=== PATIENT | male | born 1945 | race American Indian/Alaskan Native ===

== ENCOUNTER 2016-10-12 09:20 | Inpatient (IN) | payer MEDICARE, MEDICAID, OTHER ==
[2016-10-12] MEDS ORDERED: methylPREDNISolone Sodium Succinate 125 MG/2 ML SDV IVPUSH ONE (09:37)
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
--- NOTE | 2016-10-12 10:34 | CR ---
EXAMINATION: Portable chest radiograph. HISTORY: Shortness of breath. FINDINGS: The trachea is midline. The cardiomediastinal silhouette is within normal limits. No pulmonary infil trates, effusions or pneumothorax. Calcified granulomas are noted. There is moderate hyperinflation and biapical scarring. Osseous structures appear unremarkable. IMPRESSION: No acute cardiopulmonary process.
[2016-10-12 11:09] LABS: CHLORIDE,CL 106 mmol/L (98-110); SODIUM,NA 138 mmol/L (136-146)
[2016-10-12] MEDS ORDERED: Albuterol 0.083% 2.5 MG/3 ML Neb Soln NEB PRN (12:27)
[2016-10-12] MEDS ORDERED: Sodium Chloride 0.9% 2.5 ML Syringe FLUSH PRN (12:27)
[2016-10-12] MEDS ORDERED: Ondansetron 4 MG/2 ML SDV IVPUSH PRN (12:27)
[2016-10-12] MEDS ORDERED: Acetaminophen 325 MG Tab PO PRN (12:27)
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
[2016-10-12] MEDS: Loratadine 10 MG Tab PO SCH (13:22)
[2016-10-12] MEDS: Nicotine 21 MG/24 Hr Patch TRDERM SCH (13:23)
[2016-10-12] MEDS: Albuterol/Ipratropium 3.0-0.5 MG/3 ML Neb Soln NEB SCH ×2 (13:29→18:04)
[2016-10-12] MEDS: Fluticasone/Salmeterol 250-50 MCG Inhalation Powder 14/Diskus INH SCH ×2 (13:29→20:44)
[2016-10-12] MEDS: Acetaminophen/HYDROcodone 325-10 MG Tab PO PRN (18:20)
[2016-10-12] MEDS: methylPREDNISolone Sodium Succinate 125 MG/2 ML SDV IVPUSH SCH (20:34)
[2016-10-12] MEDS: Omeprazole 20 MG Cap.CR PO SCH (22:30)
[2016-10-12] MEDS: atorvaSTATin 20 MG Tab PO SCH (22:30)
[2016-10-12] MEDS: Acyclovir 200 MG Cap PO PRN (22:33)
[2016-10-13] MEDS: Albuterol/Ipratropium 3.0-0.5 MG/3 ML Neb Soln NEB SCH ×2 (00:27→05:52)
[2016-10-13] MEDS: Acetaminophen/HYDROcodone 325-10 MG Tab PO PRN ×2 (00:28→09:31)
[2016-10-13 06:02] LABS: CHLORIDE,CL 101 mmol/L (98-110); SODIUM,NA 133 mmol/L (136-146)
[2016-10-13] MEDS: Omeprazole 20 MG Cap.CR PO SCH (06:37)
[2016-10-13] MEDS ORDERED: Piperacillin/Tazobactam 3.375 GM in Sodium Chloride 0.9% 50 ML IV SCH (07:00)
[2016-10-13] MEDS ORDERED: Ondansetron 8 MG Tab.DIS PO PRN (07:15)
[2016-10-13] MEDS: methylPREDNISolone Sodium Succinate 125 MG/2 ML SDV IVPUSH SCH (08:04)
[2016-10-13] MEDS ORDERED: Levofloxacin/Dextrose 5%-Water 750 MG in Premix Bag 1 BAG IV SCH (09:00)
[2016-10-13] MEDS ORDERED: Tamsulosin 0.4 MG Cap.ER PO SCH (09:00)
[2016-10-13] MEDS ORDERED: Folic Acid 1 MG Tab PO SCH (09:00)
[2016-10-13] MEDS: Loratadine 10 MG Tab PO SCH (09:11)
[2016-10-13] MEDS: atorvaSTATin 20 MG Tab PO SCH (09:13)
[2016-10-13] MEDS: Nicotine 21 MG/24 Hr Patch TRDERM SCH (09:15)
[2016-10-13] MEDS: Acyclovir 200 MG Cap PO PRN (09:35)
[2016-10-13] MEDS: Fluticasone/Salmeterol 250-50 MCG Inhalation Powder 14/Diskus INH SCH (09:38)
[2016-10-13 11:23] VITALS: BP 114/53
--- NOTE | 2016-10-13 11:32 | PCM.DCSUM1 ---
Discharge Summary - Hospital Course Brief History: This 71 year old male with pmh of myelodysplastic syndrome, dyslipidemia, COPD, and 3 ppd smoker presented to the ED today with complaints of dyspnea. He was seen with his PCP, given a neb treatment with very little improvement. He was noted to be satting 88% on RA. Is not oxygen dependent at home, uses only a rescue inhaler at home. He reports he started feeling short of breath 3 days ago. He was outside helping neighbors with grain and was exposed to a lot of grain dust. He denies chest pain, but is having SOB with productive cough. He at baseline has a productive cough, but the secretions have increased slightly. He continues to smoke 3 ppd cigarettes, he is motivated to quit and plans on doing so soon. He denies any recent URI, fever, chills, neck pain, abdominal pain, black or bloody BMs and no urinary symptoms. Continues to see Dr Patience Garibay in Oncology, receives Neupogen and Aranesp injections for myelodysplastic syndrome. In the ED WBC 7,610, hgb 11.7 (at baseline), platelets 123, BMP WNL. Influenza swab negative. Slight hypoxia noted on RA 88-89%, otherwise VSS, CXR negative for infiltrates, but moderate hyperinflation and biapical scarring noted. He will be admitted for COPD exacerbation. Dr. Enriquez PCP. - Discharge Data Discharge Date: 10/13/16 Discharge Disposition: Home, Self-Care 01 Condition: Good - Discharge Diagnosis/Problem(s) (1) Hypoxemia SNOMED Code(s): 821255495 ICD Code: R09.02 - HYPOXEMIA Status: Acute Current Visit: Yes (2) COPD (chronic obstructive pulmonary disease) SNOMED Code(s): 17024862 ICD Code: J44.9 - CHRONIC OBSTRUCTIVE PULMONARY DISEASE, UNSPECIFIED Status : Acute Current Visit: Yes Qualifiers: COPD type: COPD with acute exacerbation Qualified Code(s): J44.1 - Chronic obstructive pulmonary disease with (acute) exacerbation (3) Dyslipidemia SNOMED Code(s): 854173271 ICD Code: E78.5 - HYPERLIPIDEMIA, UNSPECIFIED Status: Chronic Current Visit: Yes (4) Tobacco abuse SNOMED Code(s): 571945158, 242415129 ICD Code: Z72.0 - TOBACCO USE Status: Chronic Current Visit: Yes (5) 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 SNOMED Code(s): 320745463 ICD Code: D75.89 - OTHER SPECIFIED DISEASES OF BLOOD AND BLOOD-FORMING ORGANS Status: Chronic Current Visit: No - Patient Summary/Data Operative Procedure(s) Performed: Colonoscopy with snare rectal polypectomy - Patient Instructions Diet: Regular Diet as Tolerated Activity: As Tolerated Driving: May Drive Today Showering/Bathing: May Shower Notify Provider of: Fever, Increased Pain, Swelling and Redness, Drainage, Nausea and/or Vomiting Other/Special Instructions: Hold Neupogen injection on TuesdayOctober 15. Follow in Oncology on TuesdayOctober 18 with lab work prior to Aranesp injection. - Discharge Plan Prescriptions/Med Rec: predniSONE 40 mg PO WITHBREAKFAST #8 tablet Home Medications: Home Meds Folic Acid 1 mg PO DAILY 04/04/14 [History] atorvaSTATin Calcium [Atorvastatin Calcium] 20 mg PO DAILY 04/04/14 [History] Acyclovir 400 mg PO BID PRN 10/12/16 [History] Albuterol [Proventil HFA] 2 puff INH Q4H PRN 10/12/16 [History] Albuterol/Ipratropium [DuoNeb 3.0-0.5 MG/3 ML] 3 ml IH QID PRN 10/12/16 [History ] Darbepoetin [place] in Polysorbat [Aranesp] 309 mcg ID WEEKLY 10/12/16 [History] Esomeprazole Magnesium [Nexium 24Hr] 44.6 mg PO DAILY 10/12/16 [History] Hydrocodone/Acetaminophen [[place] 10-325 Tablet] 10 - 325 mg PO Q6H PRN 10/12/16 [History] Ondansetron HCl [Zofran] 8 mg PO Q8HR PRN 10/12/16 [History] Tamsulosin [Flomax] 0.4 mg PO DAILY 10/12/16 [History] Tiotropium Br/Olodaterol HCl [Stiolto Respimat Inhal [place]] 2 inh IH DAILY 10/12 [History] Filgrastim [Neupogen] 480 mcg SUBCUT WEEKLY #0 10/13/16 [Rx] Loratadine [Claritin] 10 mg PO DAILY tablet 10/13/16 [Rx] Nicotine [Habitrol] 21 mg TRDERM DAILY patch 10/13/16 [Rx] predniSONE 40 mg PO WITHBREAKFAST #8 tablet 10/13/16 [Rx] Patient Handouts: Chronic Obstructive Pulmonary Disease, [id number], Prednisone tablets Referrals: [facility] [Outside] Hudson Enriquez MD [Primary Care Provider] - 10/20/16 1:00 pm - Discharge Summary/Plan Comment DC Time >30 min.: No Discharge Summary/Plan Comment: Discharge diagnosis: COPD with mild exacerbation Myelodysplastic syndrome Tobacco use Dvaid was admitted and treated with SOlu-medrol Q12 hrs, oxygen and Duonebs. He improvement greatly overnight and is requesting discharge today. On room air sating 94%. Leukocytosis of 50,000 noted this am. This is likey due to recently receiving his Neupogen injection on the as well as Solumedrol. I attempted to call his Oncologist Dr. Patience Garibay, who was out of the office. I was able to speak with her [employer] SERV[employer]ENT, Isabella Li NP who recommended holding Tuesday's injection of Neupogen and to follow a CBC next week prior to Aranesp injection as well. She agrees this is likely a reaction of Neupogen and the Solumedrol. He is afebrile, VSS and I do not feel he has an infection. I will discharge him home today with Prednisone for 4 more day, 5 day course total and to continue taking his Stiolto and albuterol rescue inhaler PRN. He is to follow up with PCP in 1 week and Oncology on Tuesday. To return to ED or clinic in concerns do arise. - General Info Date of Service: 10/13/16 Admission Dx/Problem (Free Text: COPD exacerbation Subjective Update: Doing well this am. No chest pain or SOB. Feeling much better and requesting discharge. Functional Status: Reports: pain controlled, tolerating diet, ambulating, urinating - Review of Systems General: Reports: No Symptoms. Denies: Fever HEENT: Denies: no symptoms, sinus congestion, sore throat Pulmonary: Reports: no symptoms. Denies: shortness of breath, cough, sputum Cardiovascular: Reports: No Symptoms. Denies: Chest Pain, Edema Gastrointestinal: Reports: No symptoms. Denies: Abdominal pain, Nausea, Vomiting Genitourinary: Reports: no symptoms Musculoskeletal: Reports: no symptoms Skin: Reports: no symptoms Neurological: Reports: No Symptoms Psychiatric: Reports: no symptoms - Patient Data Vitals - Most Recent: Last Vital Signs Temp 98.2 F 10/13/16 11:21 Pulse 84 10/13/16 11:21 Resp 18 10/13/16 11:21 BP 114/53 L 10/13/16 11:21 Pulse Ox 92 L 10/13/16 11:21 Weight - Most Recent: 63.7 kg I&O - Last 24 hours: Intake & Output 10/12/16 10/13/16 10/13/16 22:59 06:59 14:59 Intake Total 480 720 Output Total 300 520 Balance 180 200 Lab Results - Last 24 hrs: Laboratory Results - last 24 hr 10/13/16 10/13/16 10/13/16 Range/Units 04:50 04:50 06:59 WBC 50.87 H (4.0-11.0) K/uL RBC 2.88 L (4.50-5.90) M/uL Hgb 10.5 L (13.0-17.0) g/dL Hct 32.2 L (38.0-50.0) % MCV 111.8 H (80.0-98.0) fL MCH 36.5 H (27.0-32.0) pg MCHC 32.6 (31.0-37.0) g/dL RDW Std Deviation 62.4 H (28.0-62.0) fl RDW Coeff of Pedro 15 (11.0-15.0) % Plt Count 129 L (150-400) K/uL MPV 11.70 (7.40-12.00) fL Add Manual Diff YES Neutrophils % (Manual) 58 (48.0-80.0) % Band Neutrophils % 36 % Lymphocytes % (Manual) 4 L (16.0-40.0) % Monocytes % (Manual) 2 (0.0-15.0) % Nucleated RBC % 0.0 /100WBC Absolute Seg Neuts 29.5 Band Neutrophils # 18.3 Lymphocytes # (Manual) 2.0 Monocytes # (Manual) 1.0 Nucleated RBCs # 0 K/uL Lactate 1.4 (0.20-2.00) mmol/L Sodium 133 L (136-146) mmol/L Potassium 4.1 (3.5-5.1) mmol/L Chloride 101 (98-110) mmol/L Carbon Dioxide 21 (21-31) mmol/L BUN 16 (6.0-23.0) mg/dL Creatinine 0.9 (0.6-1.5) mg/dL Est Cr Clr Drug Dosing 67.83 mL/min Estimated GFR (MDRD) > 60.0 ml/min Glucose 151 H (60-110) mg/dL Calcium 8.4 L (8.8-10.8) mg/dL FRIEDA Results - Last 24 hrs: Microbiology 10/13/16 06:30 Anaerobic Blood Culture - Final Blood - Venous Med Orders - Current: Current Medications Acetaminophen (Tylenol) 650 mg PO Q4H PRN PRN Reason: Pain (Mild 1-3)/fever Hydrocodone Bitart/Acetaminophen ([place] 325-10 Mg) 1 tab PO Q6H PRN PRN Reason: Pain Last Admin: 10/13/16 09:31 Dose: 1 tab Acyclovir (Zovirax) 400 mg PO BID [facility] Albuterol (Proventil Neb Soln) 2.5 mg NEB Q2HR PRN PRN Reason: Shortness Of Breath/wheezing Last Admin: 10/12/16 13:27 Dose: 2.5 mg Albuterol/Ipratropium (Duoneb 3.0-0.5 Mg/3 Ml) 3 ml NEB Q6HRRT [facility] Last Admin: 10/13/16 05:52 Dose: 3 ml Atorvastatin Calcium (Lipitor) 20 mg PO DAILY [facility] Last Admin: 10/13/16 09:13 Dose: 20 mg Folic Acid (Folic Acid) 1 mg PO DAILY [facility] Last Admin: 10/13/16 09:12 Dose: 1 mg Piperacillin Sod/Tazobactam (Sod 3.375 gm/ Sodium Chloride) 50 mls @ 100 mls/ hr IV Q6H [facility] Last Admin: 10/13/16 06:37 Dose: 100 mls/hr Levofloxacin/Dextrose 750 mg/ (Premix) 150 mls @ 100 mls/hr IV Q24H [facility] Last Admin: 10/13/16 08:07 Dose: 100 mls/hr Vancomycin HCl 1 gm/ Sodium (Chloride) 250 mls @ 125 mls/hr IV Q12H [facility] Loratadine (Claritin) 10 mg PO DAILY [facility] Last Admin: 10/13/16 09:11 Dose: 10 mg Methylprednisolone Sodium Succinate (Solu-Medrol) 125 mg IVPUSH Q12H [facility] Last Admin: 10/13/16 08:04 Dose: 125 mg Nicotine (Habitrol) 21 mg TRDERM DAILY [facility] Last Admin: 10/13/16 09:15 Dose: 21 mg Omeprazole (Omeprazole) 20 mg PO ACBREAKFAST [facility] Last Admin: 10/13/16 06:37 Dose: 20 mg Ondansetron HCl (Zofran) 4 mg IVPUSH Q4H PRN PRN Reason: Nausea Ondansetron HCl (Zofran Odt) 8 mg PO Q8HR PRN PRN Reason: Nausea Fluticasone/Salmeterol (Advair Diskus 250-50) 1 puff INH BID [facility] Last Admin: 10/13/16 09:38 Dose: 1 inhalation Sodium Chloride (Saline Flush) 2.5 ml FLUSH ASDIRECTED PRN PRN Reason: Keep Vein Open Tamsulosin HCl (Flomax) 0.4 mg PO DAILY [facility] Last Admin: 10/13/16 09:12 Dose: 0.4 mg Vancomycin HCl (Pharmacy To Dose - Vancomycin) 1 dose .XX ASDIRECTED [facility] Discontinued Medications Acyclovir (Zovirax) 400 mg PO BID PRN PRN Reason: VIRAL OUTBREAK Last Admin: 10/13/16 09:35 Dose: 400 mg Methylprednisolone Sodium Succinate (Solu-Medrol) 125 mg IVPUSH ONETIME ONE Stop: 10/12/16 09:38 Last Admin: 10/12/16 09:57 Dose: 125 mg Ondansetron HCl (Zofran) 8 mg PO Q8HR PRN PRN Reason: Nausea - Exam Quality Assessment: Reports: DVT prophylaxis. Denies: supplemental oxygen General: Reports: alert, oriented, cooperative Lungs: Reports: Clear to auscultation, Normal respiratory effort Cardiovascular: Reports: Regular Rate, Regular Rhythm Abdomen: Reports: bowel sounds present, soft, no tenderness, no distension Extremities: Reports: no edema, normal pulses Skin: Reports: warm, dry, intact Neurological: Reports: no new focal deficit Psy/Mental Status: Reports: alert, normal affect, normal mood *Q Meaningful Use (DIS) - VTE *Q VTE Criteria *Q: VTE Pharmacological Contraindications *Q: Risk of Bleeding - Stroke *Q Stroke Criteria *Q: - AMI *Q AMI Criteria *Q:
[2016-10-13] MEDS ORDERED: Acyclovir 200 MG Cap PO SCH (21:00)
== END 2016-10-13 12:20 | disposition home or self-care (01) | DRG 192 ==
LOC: MW.ED 09:20 → OBSVTOIN 11:49 → MW.MS 11:49
PROVIDERS: ADMIT Family Medicine; ATTEND Family Medicine
DX: J44.9 Chronic obstructive pulmonary disease, unspecified (principal); J44.1 Chronic obstructive pulmonary disease with (acute) exacerbation; Z87.891 Personal history of nicotine dependence; D46.9 Myelodysplastic syndrome, unspecified; E78.5 Hyperlipidemia, unspecified; F17.210 Nicotine dependence, cigarettes, uncomplicated; R09.02 Hypoxemia; Z79.52 Long term (current) use of systemic steroids; Z87.19 Personal history of other diseases of the digestive system
CPT/HCPCS: 36415; 71010; 80053; 83880; 84484; 85025; 87040 ×2; 87804 ×2; 96374; 99285; J2930; 80048; 83605; 93005; 94640; A9270-GY; J1956; J2543; J7050

== ENCOUNTER 2018-11-15 09:16 | Emergency (ER) | payer MEDICARE, MEDICAID, OTHER ==
[2018-11-15] MEDS ORDERED: Ketorolac 60 MG/2 ML SDV IM ONE (10:12)
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
--- NOTE | 2018-11-15 11:15 | CR ---
EXAMINATION: Lumbar spine HISTORY: Pain COMPARISON: CT dated 07/07/2017 TECHNIQUE: AP and lateral views of the lumbar spine. FINDINGS: Mild superior endplate compression deformity at L2, new in comparison to the previous examination. Mild wedging of the T12 vertebral body, grossly stable. Overall visualized osseous structures are osteopenic. SI joints are symmetric. Marginal osteophyte formation is noted. Partially visualized left pelvic hardware noted. IMPRESSION: 1. Age-indeterminate mild compression deformity along the superior endplate of L2. 2. Otherwise stable mild compression deformities noted within the thoracolumbar spine. 3. Mild degenerative changes and generalized osteopenia.
[2018-11-15 14:48] VITALS: BP 121/61
== END 2018-11-15 11:40 | disposition home or self-care (01) ==
LOC: MW.ED 09:16
DX: M54.5 Low back pain (principal); G89.29 Other chronic pain; Z79.899 Other long term (current) drug therapy
CPT/HCPCS: 72100; 96372; 99283; J1885; J2360

== ENCOUNTER 2018-11-25 18:33 | Emergency (ER) | payer MEDICARE, MEDICAID, OTHER ==
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
--- NOTE | 2018-11-25 20:19 | CT ---
Indication: Fall, pain. Technique: CT left hip without contrast. Comparison: None. Findings: There is a plate and multiple screws fixating the left acetabulum. Hardware appears in satisfactory position. Bone alignment is normal. No sign of acute fracture. No suspicious bone lesion. Hip joint is within normal limits. No sign of joint effusion or hematoma. Soft tissues are unremarkable. Impression: No sign of fracture or other acute or significant finding in the left hip. Please note that all CT scans at this facility use dose modulation, iterative reconstruction, and/or weight-based dosing when appropriate to reduce radiation dose to as low as reasonably achievable. Dictated by Terell Orona MD @ Nov 25 2018 8:12PM Signed by Dr. Terell Orona @ Nov 25 2018 8:17PM
[2018-11-25] MEDS ORDERED: HYDROmorphone 2 MG/ML SDV IM ONE (20:26)
[2018-11-25] MEDS ORDERED: HYDROmorphone 1 MG/ML Syringe IM ONE (20:35)
[2018-11-25] MEDS ORDERED: HYDROmorphone 1 MG/ML Syringe ONE (20:35)
[2018-11-25 21:13] VITALS: BP 107/59
== END 2018-11-25 21:05 | disposition home or self-care (01) ==
LOC: MW.ED 18:33
DX: M25.552 Pain in left hip (principal); E78.00 Pure hypercholesterolemia, unspecified; J44.9 Chronic obstructive pulmonary disease, unspecified; K21.9 Gastro-esophageal reflux disease without esophagitis; Z79.899 Other long term (current) drug therapy
CPT/HCPCS: 73700; 96372; 99283; J1170

== ENCOUNTER 2019-04-22 09:16 | Emergency (ER) | payer MEDICARE, MEDICAID, OTHER ==
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
[2019-04-22] MEDS ORDERED: HYDROmorphone 1 MG/ML Syringe IM ONE ×2 (09:41→10:35)
[2019-04-22] MEDS ORDERED: Ondansetron 4 MG Tab.DIS PO ONE (09:42)
[2019-04-22] MEDS ORDERED: Diazepam 5 MG Tab PO ONE (10:39)
[2019-04-22] MEDS ORDERED: Diazepam 5 MG Tab ONE (11:03)
[2019-04-22 11:55] VITALS: BP 106/39; PULSE 68
== END 2019-04-22 11:51 | disposition home or self-care (01) ==
LOC: MW.ED 09:16
DX: M50.30 Other cervical disc degeneration, unspecified cervical region (principal); E78.00 Pure hypercholesterolemia, unspecified; J44.9 Chronic obstructive pulmonary disease, unspecified; Z79.899 Other long term (current) drug therapy; Z79.82 Long term (current) use of aspirin
CPT/HCPCS: 96372; 99283; A9270; J1170

== ENCOUNTER 2019-04-29 02:52 | Emergency (ER) | payer MEDICARE, MEDICAID, OTHER ==
[2019-04-29] MEDS ORDERED: HYDROmorphone 1 MG/ML Syringe IVPUSH ONE (03:37)
[2019-04-29] MEDS ORDERED: Ondansetron 4 MG/2 ML SDV IVPUSH ONE (03:38)
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
--- NOTE | 2019-04-29 04:22 | CT ---
INDICATION: Neck pain TECHNIQUE: CT cervical spine without contrast. COMPARISON: Cervical spine radiograph April 19, 2019 FINDINGS: Vertebral alignment: Alignment is normal. Vertebrae: There are no fractures or suspicious bony lesions. Discs and facet joints: There are moderate to severe multilevel degenerative disc and facet changes. Extraspinal findings: Paraspinous soft tissues are unremarkable. Emphysema. IMPRESSION: 1. No sign of acute injury. 2. Multilevel degenerative spondylosis. Please note that all CT scans at this facility use dose modulation, iterative reconstruction, and/or weight-based dosing when appropriate to reduce radiation dose to as low as reasonably achievable. Dictated by Haleigh Marshall MD @ Apr 29 2019 4:21AM Signed by Dr. Haleigh Marshall @ Apr 29 2019 4:21AM
[2019-04-29 04:41] VITALS: BP 126/71; PULSE 64
== END 2019-04-29 04:42 | disposition home or self-care (01) ==
LOC: MW.ED 02:52
DX: M47.812 Spondylosis without myelopathy or radiculopathy, cervical region (principal); E78.00 Pure hypercholesterolemia, unspecified; K21.9 Gastro-esophageal reflux disease without esophagitis; Z86.2 Personal history of diseases of the blood and blood-forming organs and certain disorders involving the immune mechanism; Z87.891 Personal history of nicotine dependence; Z79.899 Other long term (current) drug therapy; Z79.82 Long term (current) use of aspirin
CPT/HCPCS: 72125; 96374; 96375; 99283; J1170; J2405

== ENCOUNTER 2019-10-15 21:02 | Emergency (ER) | payer MEDICARE, MEDICAID, OTHER ==
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
[2019-10-15 22:35] LABS: BLOOD UREA NITROGEN,BUN 10 mg/dL (7.0-18.0); CARBON DIOXIDE,CO2 22.6 mmol/L (21.0-32.0); CHLORIDE,CL 96 mmol/L (98-107); GLUCOSE RANDOM 111 mg/dL (74-106); POTASSIUM,K 3.6 mmol/L (3.5-5.1); SODIUM,NA 129 mmol/L (136-148)
--- NOTE | 2019-10-15 22:37 | CR ---
INDICATION: Shortness of breath w fever TECHNIQUE: Chest radiograph 1 view on 2 films COMPARISON: 10/04/2016 FINDINGS: Mediastinum: The mediastinum is normal in appearance. The heart silhouette is normal in size and morphology. Lung: There is a stable 6 mm calcified granuloma in right upper lung. No sign of pleural effusion seen. No pneumothorax is identified. Bone and Soft tissue: Suture anchors are present in bilateral humeral heads. IMPRESSION: 1. No acute cardiopulmonary disease is seen. Dictated by Javi Burleson MD @ 10/15/2019 10:36:42 PM Dictated by: Javi Burleson MD @ 10/15/2019 22:36:44 (Electronically Signed)
[2019-10-15] MEDS ORDERED: Sodium Chloride 0.9% 500 ML IV SCH (23:00)
[2019-10-16] MEDS ORDERED: Iopamidol 755 Mg/ML 100 ML Bottle IVPUSH STA (00:53)
--- NOTE | 2019-10-16 01:43 | CT ---
INDICATION: Fever, chest TECHNIQUE: CT chest with i.v. contrast during the venous phase. Coronal and sagittal reformats were obtained. CONTRAST: 100 mL Isovue 370 COMPARISON: 04/24/2019 FINDINGS: Cardiovascular: The heart has an unremarkable appearance and size. The pulmonary arteries are unremarkable in appearance. Ectasia of the ascending aorta is noted measuring 3.8 cm. Calcifications of the aortic valve are noted. Mediastinum: No mass or adenopathy seen. Lung: There is a 6 mm calcified granuloma present right upper lobe. Mild centrilobular emphysema is present bilaterally. Pleura and pericardium: No sign of pleural effusion seen. No significant pericardial effusion is present. Chest wall and axilla: No mass or adenopathy seen. Bone: Multiple mild stable compression deformity is present in the upper and mid thoracic spine. Upper abdomen: Small sliding type esophageal hiatal hernia (type I) is present. IMPRESSIONS: 1. Ectasia of the ascending aorta is noted measuring 3.8 cm. 2. Calcifications of the aortic valve are noted. Correlation with physical exam is recommended to exclude aortic stenosis. Dictated by Javi Burleson MD @ 10/16/2019 1:41:24 AM Please note that all CT scans at this facility use dose modulation, iterative reconstruction, and/or weight-based dosing when appropriate to reduce radiation dose to as low as reasonably achievable. Dictated by: Javi Burleson MD @ 10/16/2019 01:41:31 (Electronically Signed)
--- NOTE | 2019-10-16 01:54 | CT ---
INDICATION: Abdominal pain, fever TECHNIQUE: CT Abdomen and pelvis with i.v. contrast. Coronal and sagittal reformats were obtained. CONTRAST: 100 mL Isovue 370 COMPARISON: 08/05/2017 FINDINGS: Liver: Unremarkable. Spleen: Unremarkable. Pancreas: Unremarkable. Gallbladder: Unremarkable. Kidney: Mild dilatation of the renal pelvis is noted bilaterally without evidence of caliectasis. This is most likely due to extrarenal pelves. Adrenal: Unremarkable. Bowel: Small sliding type esophageal hiatal hernia (type I) is present. Mild gaseous distention of the colon is present with a slightly nodular appearance of the mucosa along the transverse colon. There is a new configuration of swirled small-bowel and mesenteric vessels seen in the right lower quadrant. The appendix is normal in appearance and size. Vascular: Moderate diffuse atherosclerotic calcifications of the abdominal aorta and its tributaries are present. Lymph: Unremarkable. Peritoneum: Unremarkable. No pneumoperitoneum is seen. No significant ascites is noted. Pelvis: Unremarkable. Soft tissue: Unremarkable. Bone: Previous ORIF of the left acetabulum and inferior pubic ramus noted. Interval development of a moderate compression deformity along the superior endplate of L2 is noted. Chronic stable compression deformities of T12 and L1 are present. IMPRESSIONS: 1. Mild gaseous distention of the colon is present with a slightly nodular appearance of the mucosa along the transverse colon. Clinical correlation is recommended to exclude mild infectious colitis. 2. There is a new configuration of swirled small-bowel and mesenteric vessels seen in the right lower quadrant. Clinical follow-up is recommended to exclude a nonobstructing internal hernia. 3. Interval development of a moderate compression deformity along the superior endplate of L2 is noted. Dictated by Javi Burleson MD @ 10/16/2019 1:51:39 AM Please note that all CT scans at this facility use dose modulation, iterative reconstruction, and/or weight-based dosing when appropriate to reduce radiation dose to as low as reasonably achievable. Dictated by: Javi Burleson MD @ 10/16/2019 01:51:49 (Electronically Signed)
[2019-10-16 06:53] VITALS: BP 124/64; PULSE 68
== END 2019-10-16 06:52 | disposition home or self-care (01) ==
LOC: MW.ED 21:02
DX: D64.9 Anemia, unspecified (principal); J44.9 Chronic obstructive pulmonary disease, unspecified; E78.00 Pure hypercholesterolemia, unspecified; K21.9 Gastro-esophageal reflux disease without esophagitis; F32.9 Major depressive disorder, single episode, unspecified; Z79.899 Other long term (current) drug therapy
CPT/HCPCS: 36415; 36430; 71045; 71045-26; 71260; 71260-26; 74177; 74177-26; 80053; 81001; 83605; 85014; 85018; 85025; 86850; 86900; 86901; 86920; 86921; 86922; 87040; 87804; 99284-25; J7040; P9016; Q9967; U0002

== ENCOUNTER 2019-12-14 22:09 | Observation (INO) | payer MEDICARE, MEDICAID, OTHER ==
[2019-12-14] MEDS ORDERED: Sodium Chloride 0.9% 1,000 ML IV ONE (22:45)
[2019-12-14] MEDS ORDERED: Sodium Chloride 0.9% 2.5 ML Syringe FLUSH PRN (22:45)
[2019-12-14] MEDS ORDERED: Sodium Chloride 0.9% 10 ML Syringe FLUSH PRN (22:45)
[2019-12-14 23:22] LABS: BLOOD UREA NITROGEN,BUN 10 mg/dL (7.0-18.0); CARBON DIOXIDE,CO2 24.3 mmol/L (21.0-32.0); CHLORIDE,CL 101 mmol/L (98-107); GLUCOSE RANDOM 111 mg/dL (74-106); POTASSIUM,K 3.4 mmol/L (3.5-5.1); SODIUM,NA 135 mmol/L (136-148)
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
--- NOTE | 2019-12-15 00:16 | CR ---
INDICATION: Steps TECHNIQUE: Chest 2 views. COMPARISON: 09/18/2019 FINDINGS: Cardiovascular and mediastinum: Heart size and vasculature are normal in caliber and appearance. Mediastinum is within normal limits. Lungs and pleural spaces: Lungs are clear. No sign of infiltrate. Stable 5-6 millimeter probable calcified granuloma right upper lobe. No sign of pleural effusion. No pneumothorax. Bones and soft tissues: No significant findings. IMPRESSION: Unremarkable chest. Dictated by Gagan Alcantara MD @ 12/15/2019 12:14:29 AM Dictated by: Gagan Alcantara MD @ 12/15/2019 00:14:37 (Electronically Signed)
[2019-12-15] MEDS ORDERED: Iopamidol 755 Mg/ML 100 ML Bottle IVPUSH ONE (00:21)
--- NOTE | 2019-12-15 01:09 | CT ---
INDICATION: Fever, immunocompromised TECHNIQUE: Axial images were obtained from the diaphragm to the pubic symphysis. Reformats were obtained in the coronal and sagittal plane. IV Contrast: 100 cc Isovue 370 Oral Contrast: None COMPARISON: Abdomen and pelvis CT 10/16/2019 FINDINGS: Lower chest: Basilar areas of discoid atelectasis. Small hiatal hernia. Liver: Unremarkable. Normal in size and attenuation. No masses. Gallbladder and bile ducts: Contracted gallbladder Spleen: Unremarkable. Normal in size without mass. Pancreas: Unremarkable. No mass or inflammation. Adrenal glands: Unremarkable. No nodules. Kidneys: Symmetric enhancement with mild pelviectasis, greater on the right. Vasculature: Atherosclerosis without abdominal aortic aneurysm. GI tract: Stomach is unremarkable. No dilated loops of large or small intestine. Moderate amount of stool within colon. Pelvis: Moderate prostatic enlargement. Bones: Status post left acetabular repair. Old compression type fractures of T12, L1 and L2 demonstrated. IMPRESSION: 1. No dilated bowel or localized inflammation. 2. Small hiatal hernia. 3. Moderate prostatic enlargement. Please note that all CT scans at this facility use dose modulation, iterative reconstruction, and/or weight-based dosing when appropriate to reduce radiation dose to as low as reasonably achievable. Dictated by Nba Kline MD @ Dec 15 2019 12:57AM Signed by Dr. Nba Kline @ Dec 15 2019 1:07AM
[2019-12-15] MEDS ORDERED: Piperacillin/Tazobactam 4.5 GM in Sodium Chloride 0.9% 100 ML IV ONE (01:17)
[2019-12-15] MEDS ORDERED: Albuterol/Ipratropium 3.0-0.5 MG/3 ML Neb Soln NEB PRN (02:47)
[2019-12-15] MEDS ORDERED: Acetaminophen 500 MG Tab PO PRN (02:50)
[2019-12-15] MEDS: Sodium Chloride 0.9% 1,000 ML IV SCH ×2 (03:06→17:21)
[2019-12-15] MEDS ORDERED: Sodium Chloride 0.9% 1,000 ML IV ONE (04:47)
[2019-12-15 06:38] LABS: BLOOD UREA NITROGEN,BUN 9 mg/dL (7.0-18.0); CARBON DIOXIDE,CO2 23.7 mmol/L (21.0-32.0); CHLORIDE,CL 104 mmol/L (98-107); GLUCOSE RANDOM 101 mg/dL (74-106); POTASSIUM,K 3.3 mmol/L (3.5-5.1); SODIUM,NA 136 mmol/L (136-148)
[2019-12-15] MEDS ORDERED: Potassium Chloride 20 MEQ Tab.ER PO ONE (07:28)
[2019-12-15] MEDS ORDERED: Magnesium Sulfate/Water 4 GM in Premix Bag 1 BAG IV ONE (07:29)
[2019-12-15] MEDS: Pantoprazole 40 MG in Sodium Chloride 0.9% 10 ML IV SCH ×2 (08:00→18:40)
--- NOTE | 2019-12-15 08:09 | PCM.HP.2 ---
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 dose .XX ASDIRECTED Piperacillin/Tazobactam [Piperacil-Tazobact] 3.375 gm Med 12/15/19 09:30 Active Sodium Chloride 0.9% [Normal Saline] 50 ml IV Q8H Sennosides [Senna] Med 12/15/19 10:45 Ordered 1 tab PO DAILY Sodium Chloride 0.9% [Normal Saline] 1,000 ml Med 12/15/19 02:45 Active IV ASDIRECTED Sodium Chloride 0.9% [Saline Flush] Med 12/14/19 22:45 Active 10 ml FLUSH ASDIRECTED PRN Sodium Chloride 0.9% [Saline Flush] Med 12/14/19 22:45 Active 2.5 ml FLUSH ASDIRECTED PRN Tamsulosin [Flomax] Med 12/15/19 10:45 Active 0.4 mg PO DAILY Vancomycin [Vancocin] 1 gm Med 12/15/19 15:00 Active Sodium Chloride 0.9% [Normal Saline (AdvBag)] 250 ml IV Q12H atorvaSTATin [Lipitor] Med 12/15/19 21:00 Active 20 mg PO BEDTIME oxyCODONE HCl [Oxycodone HCL] Med 12/15/19 10:34 Ordered 10 mg PO Q6HR PRN Blood Culture x2 Reflex Set [OM.PC] Stat Ot 12/14/19 22:45 Ordered Precautions [COMM] Routine Ot 12/15/19 02:42 Ordered Saline Lock Insert [OM.PC] Stat Ot 12/14/19 22:45 Ordered Transfuse Red Blood Cells [COMM] Routine Ot 12/15/19 07:06 Ordered Resuscitation Status Routine Resus Stat 12/15/19 07:30 Ordered Medication Orders Acetaminophen (Tylenol Extra Strength) 500 mg PO Q6H PRN PRN Reason: Fever Last Admin: 12/15/19 03:03 Dose: 500 mg Acetaminophen (Tylenol) 650 mg PO Q4H PRN PRN Reason: Pain/Fever Acyclovir (Zovirax) 200 mg PO DAILY [facility] Albuterol/Ipratropium (Duoneb 3.0-0.5 Mg/3 Ml) 3 ml NEB Q4HRRT PRN PRN Reason: wheezing/shortness of breath Atorvastatin Calcium (Lipitor) 20 mg PO BEDTIME [facility] Folic Acid (Folic Acid) 1 mg PO DAILY [facility] Gabapentin (Neurontin) 300 mg PO ASDIRECTED [facility] Sodium Chloride (Normal Saline) 1,000 mls @ 125 mls/hr IV ASDIRECTED [facility] Last Admin: 12/15/19 03:06 Dose: 125 mls/hr Piperacillin Sod/Tazobactam (Sod 3.375 gm/ Sodium Chloride) 50 mls @ 100 mls/ hr IV Q8H [facility] Last Admin: 12/15/19 10:18 Dose: 100 mls/hr Vancomycin HCl 1 gm/ Sodium (Chloride) 250 mls @ 166 mls/hr IV Q12H [facility] Pantoprazole Sodium 40 mg/ (Sodium Chloride) 10 mls @ 300 mls/hr IV Q12H [facility] Last Admin: 12/15/19 08:00 Dose: 300 mls/hr Non-Formulary Medication (Calcium Carbonate) 1,200 mg PO DAILY [facility] Non-Formulary Medication (Sennosides [Senna]) 1 tab PO DAILY [facility] Ondansetron HCl (Zofran) 4 mg IVPUSH Q4H PRN PRN Reason: Nausea/Vomiting Oxycodone HCl (Oxycodone Hcl) 10 mg PO Q6HR PRN PRN Reason: pain Sodium Chloride (Saline Flush) 10 ml FLUSH ASDIRECTED PRN PRN Reason: Keep Vein Open Last Admin: 12/14/19 23:11 Dose: 10 ml Sodium Chloride (Saline Flush) 2.5 ml FLUSH ASDIRECTED PRN PRN Reason: Keep Vein Open Last Admin: 12/14/19 23:11 Dose: 2.5 ml Tamsulosin HCl (Flomax) 0.4 mg PO DAILY [facility] Vancomycin HCl (Pharmacy To Dose - Vancomycin) 1 dose .XX ASDIRECTED [facility] Assessment/Plan Comment:: I performed a history and physical exam of the patient and discussed management with resident. I have reviewed the residents note and agree with documented findings and plan unless otherwise specified in my note.
[2019-12-15] MEDS: Piperacillin/Tazobactam 3.375 GM in Sodium Chloride 0.9% 50 ML IV SCH ×2 (10:18→17:21)
[2019-12-15] MEDS ORDERED: Ondansetron 4 MG/2 ML SDV IVPUSH PRN (10:40)
[2019-12-15] MEDS ORDERED: Acetaminophen 325 MG Tab PO PRN (10:40)
[2019-12-15] MEDS ORDERED: Gabapentin 300 MG Cap PO SCH (10:45)
[2019-12-15] MEDS ORDERED: CALCIUM CARBONATE 1200 MG PO SCH (10:45)
[2019-12-15] MEDS ORDERED: Calcium Carbonate 500 MG Tab.Chew PO SCH (11:13)
[2019-12-15] MEDS ORDERED: Calcium Carbonate 500 MG Tablet PO SCH (11:14)
[2019-12-15] MEDS: Folic Acid 1 MG Tab PO SCH (11:25)
[2019-12-15] MEDS: Sennosides 8.6 MG Tab PO SCH (11:25)
[2019-12-15] MEDS: Tamsulosin 0.4 MG Cap.ER PO SCH (11:25)
[2019-12-15] MEDS: Acyclovir 200 MG Cap PO SCH (11:25)
[2019-12-15] MEDS: Calcium Carbonate 500 MG Tablet PO SCH (12:44)
[2019-12-15] MEDS: oxyCODONE 5 MG Tab PO PRN (17:32)
[2019-12-15] MEDS ORDERED: atorvaSTATin 20 MG Tab PO SCH (21:00)
[2019-12-16] MEDS: oxyCODONE 5 MG Tab PO PRN ×2 (00:50→11:05)
[2019-12-16] MEDS: Piperacillin/Tazobactam 3.375 GM in Sodium Chloride 0.9% 50 ML IV SCH ×2 (00:52→08:30)
[2019-12-16] MEDS: Sodium Chloride 0.9% 1,000 ML IV SCH (00:59)
[2019-12-16 06:26] LABS: BLOOD UREA NITROGEN,BUN 6 mg/dL (7.0-18.0); CARBON DIOXIDE,CO2 25.3 mmol/L (21.0-32.0); CHLORIDE,CL 107 mmol/L (98-107); GLUCOSE RANDOM 94 mg/dL (74-106); SODIUM,NA 138 mmol/L (136-148)
[2019-12-16] MEDS: Pantoprazole 40 MG in Sodium Chloride 0.9% 10 ML IV SCH (06:29)
[2019-12-16 08:26] VITALS: BP 140/69; PULSE 78
[2019-12-16] MEDS: Acyclovir 200 MG Cap PO SCH (08:27)
[2019-12-16] MEDS: Sennosides 8.6 MG Tab PO SCH (08:27)
[2019-12-16] MEDS: Tamsulosin 0.4 MG Cap.ER PO SCH (08:27)
[2019-12-16] MEDS: Folic Acid 1 MG Tab PO SCH (08:27)
[2019-12-16] MEDS: Calcium Carbonate 500 MG Tablet PO SCH (08:27)
--- NOTE | 2019-12-16 11:03 | PCM.DCSUM1 ---
Discharge Summary - Hospital Course HPI Initial Comments: The patient is a 74 year old male who presented to the ER with fever of 102 last night. 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 Reports last chemo last week and had 2 units of blood transfused 1.5 weeks ago. Denies headaches, sinus congestion, sore throat, chest pain, shortness of breath, cough, abdominal pain, nausea/vomiting, constipation/diarrhea, black/bloody stools, burning with urination, or rashes. In the ER, he had a white count of 2.4, hemoglobin of 7.7, lactate wnl, negative troponin, UA with no signs of infection. Imaging- CXR showed stable granuloma right upper lobe, nothing acute and CT ab/pelvis showed moderate prostatic enlargement. In the ER he was given IVF and Zosyn. Blood cultures drawn. Patient spiked a fever that night, his IV antibiotucs were continued, his Hb dropped to 6.6 the next day, no active bleeding, patient received 2 units of PRBC. Patient Hb next day was stable. His cultures were negative for 24 hours, he was afebrile for 24 hours. Patients vitals were stable, he was eating and drinking well. Patient was keen to go home, he was medically stable for dc and recommended to fu with is Oncologist and PCP on outpatient basis. He stated his fu with his PCP is next day. - Discharge Data Discharge Date: 12/16/19 Discharge Disposition: Home, Self-Care 01 Condition: Stable - Referral to Home Health Primary Care Physician: Hudson Enriquez MD - Discharge Diagnosis/Problem(s) (1) Sepsis due to undetermined organism SNOMED Code(s): 30666485 ICD Code: A41.9 - SEPSIS, UNSPECIFIED ORGANISM Status: Acute Current Visit: Yes (2) COPD (chronic obstructive pulmonary disease) SNOMED Code(s): 14470040 ICD Code: J44.9 - CHRONIC OBSTRUCTIVE PULMONARY DISEASE, UNSPECIFIED Status : Acute Current Visit: No Qualifiers: COPD type: COPD with acute exacerbation Qualified Code(s): J44.1 - Chronic obstructive pulmonary disease with (acute) exacerbation (3) Fever SNOMED Code(s): 692636696 ICD Code: R50.9 - FEVER, UNSPECIFIED Status: Acute Current Visit: No (4) 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 SNOMED Code(s): 592947489 ICD Code: D75.89 - OTHER SPECIFIED DISEASES OF BLOOD AND BLOOD-FORMING ORGANS Status: Chronic Current Visit: No (5) Pancytopenia SNOMED Code(s): 261835855 ICD Code: D61.818 - OTHER PANCYTOPENIA Status: Acute Current Visit: Yes (6) Anemia SNOMED Code(s): 597157312 ICD Code: D64.9 - ANEMIA, UNSPECIFIED Status: Acute Current Visit: Yes - Patient Instructions Diet: Usual Diet as Tolerated Activity: As Tolerated Driving: Do Not Drive Showering/Bathing: May Shower Notify Provider of: Fever, Increased Pain, Swelling and Redness, Drainage, Nausea and/or Vomiting - Discharge Plan *PRESCRIPTION DRUG MONITORING PROGRAM REVIEWED*: No *COPY OF PRESCRIPTION DRUG MONITORING REPORT IN PATIENT BILL: No Home Medications: Home Meds Folic Acid 1 mg PO DAILY 04/04/14 [History] atorvaSTATin Calcium [Atorvastatin Calcium] 20 mg PO DAILY 04/04/14 [History] Tamsulosin [Flomax] 0.4 mg PO DAILY 10/12/16 [History] Esomeprazole Magnesium [Nexium] 40 mg PO DAILY 11/25/18 [History] Acyclovir 200 mg PO DAILY 04/29/19 [History] Ascorbate Calcium [Vitamin C] 500 mg PO DAILY 10/15/19 [History] Iron 18 mg PO DAILY 10/15/19 [History] oxyCODONE HCl [Oxycodone HCL] 1 tab PO Q6HR PRN 10/15/19 [History] Calcium Carbonate [Calcium] 1,200 mg PO DAILY 12/14/19 [History] Gabapentin [Neurontin] 300 mg PO ASDIRECTED 12/14/19 [History] Ondansetron [Zofran] 8 mg PO DAILY 12/14/19 [History] Sennosides [Senna] 1 tab PO DAILY 12/14/19 [History] Oxygen Therapy Mode: Room Air Patient Handouts: Blood Transfusion, Adult, Care After, [id number], Sepsis, Self Care, Adult Referrals: Hudson Enriquez MD [Primary Care Provider] - Gerardo Carrillo MD [Ordering Only Provider] - - Discharge Summary/Plan Comment DC Time >30 min.: No - Patient Data Vitals - Most Recent: Last Vital Signs Temp 36.9 C 12/16/19 08:00 Pulse 78 12/16/19 08:00 Resp 18 12/16/19 08:00 BP 140/69 12/16/19 08:00 Pulse Ox 95 12/16/19 08:00 Weight - Most Recent: 62.777 kg I&O - Last 24 hours: Intake & Output 12/15/19 12/16/19 12/16/19 22:59 06:59 14:59 Intake Total 213 2244 Output Total 20490 Balance 85 94 Lab Results - Last 24 hrs: Laboratory Results - last 24 hr 12/15/19 12/15/19 12/15/19 Range/Units 07:20 13:14 17:04 WBC (4.0-11.0) K/uL RBC (4.50-5.90) M/uL Hgb 9.5 L (13.0-17.0) g/dL Hct 28.7 L (38.0-50.0) % MCV (80.0-98.0) fL MCH (27.0-32.0) pg MCHC (31.0-37.0) g/dL RDW Std Deviation (28.0-62.0) fl RDW Coeff of Pedro (11.0-15.0) % Plt Count (150-400) K/uL MPV (7.40-12.00) fL Add Manual Diff Neutrophils % (Manual) (48.0-80.0) % Lymphocytes % (Manual) (16.0-40.0) % Monocytes % (Manual) (0.0-15.0) % Eosinophils % (Manual) (0.0-7.0) % Basophils % (Manual) (0.0-1.5) % Nucleated RBC % /100WBC Absolute Seg Neuts (1.4-5.7) Lymphocytes # (Manual) (0.6-2.4) Monocytes # (Manual) (0.0-0.8) Eosinophils # (Manual) (0.0-0.7) Basophils # (Manual) (0.0-0.1) Nucleated RBCs # K/uL Poikilocytosis Sodium (136-148) mmol/L Potassium (3.5-5.1) mmol/L Chloride (98-107) mmol/L Carbon Dioxide (21.0-32.0) mmol/L BUN (7.0-18.0) mg/dL Creatinine (0.8-1.3) mg/dL Est Cr Clr Drug Dosing mL/min Estimated GFR (MDRD) ml/min Glucose (74-106) mg/dL Calcium (8.5-10.1) mg/dL Magnesium (1.8-2.4) mg/dL SARS-CoV-2 RNA (RT-PCR) NEGATIVE (NEGATIVE) Blood Type O NEGATIVE Antibody Screen NEGATIVE Crossmatch See Detail 12/16/19 12/16/19 Range/Units 06:00 06:00 WBC 1.80 L (4.0-11.0) K/uL RBC 2.92 L (4.50-5.90) M/uL Hgb 8.9 L (13.0-17.0) g/dL Hct 26.8 L (38.0-50.0) % MCV 91.8 (80.0-98.0) fL MCH 30.5 (27.0-32.0) pg MCHC 33.2 (31.0-37.0) g/dL RDW Std Deviation 80.0 H (28.0-62.0) fl RDW Coeff of Pedro 25 H (11.0-15.0) % Plt Count 64 L (150-400) K/uL MPV 9.60 (7.40-12.00) fL Add Manual Diff YES Neutrophils % (Manual) 41 L (48.0-80.0) % Lymphocytes % (Manual) 21 (16.0-40.0) % Monocytes % (Manual) 34 H (0.0-15.0) % Eosinophils % (Manual) 2 (0.0-7.0) % Basophils % (Manual) 2 H (0.0-1.5) % Nucleated RBC % 0.0 /100WBC Absolute Seg Neuts 0.7 L (1.4-5.7) Lymphocytes # (Manual) 0.4 L (0.6-2.4) Monocytes # (Manual) 0.6 (0.0-0.8) Eosinophils # (Manual) 0.0 (0.0-0.7) Basophils # (Manual) 0.0 (0.0-0.1) Nucleated RBCs # 0 K/uL Poikilocytosis 1+ SLIGHT Sodium 138 (136-148) mmol/L Potassium 4.0 (3.5-5.1) mmol/L Chloride 107 (98-107) mmol/L Carbon Dioxide 25.3 (21.0-32.0) mmol/L BUN 6 L (7.0-18.0) mg/dL Creatinine 0.9 (0.8-1.3) mg/dL Est Cr Clr Drug Dosing 63.94 mL/min Estimated GFR (MDRD) > 60.0 ml/min Glucose 94 (74-106) mg/dL Calcium 7.0 L (8.5-10.1) mg/dL Magnesium 1.9 (1.8-2.4) mg/dL SARS-CoV-2 RNA (RT-PCR) (NEGATIVE) Blood Type Antibody Screen Crossmatch [facility] Results - Last 24 hrs: Microbiology 12/14/19 23:12 Aerobic Blood Culture - Preliminary Blood - Venous - Lab Draw NO GROWTH AFTER 1 DAY Anaerobic Blood Culture - Preliminary NO GROWTH AFTER 1 DAY 12/14/19 22:57 Aerobic Blood Culture - Preliminary Blood - Venous NO GROWTH AFTER 1 DAY Anaerobic Blood Culture - Preliminary NO GROWTH AFTER 1 DAY Med Orders - Current: Current Medications Acetaminophen (Tylenol Extra Strength) 500 mg PO Q6H PRN PRN Reason: Fever Last Admin: 12/15/19 03:03 Dose: 500 mg Acetaminophen (Tylenol) 650 mg PO Q4H PRN PRN Reason: Pain/Fever Acyclovir (Zovirax) 200 mg PO DAILY [facility] Last Admin: 12/16/19 08:27 Dose: 200 mg Albuterol/Ipratropium (Duoneb 3.0-0.5 Mg/3 Ml) 3 ml NEB Q4HRRT PRN PRN Reason: wheezing/shortness of breath Atorvastatin Calcium (Lipitor) 20 mg PO BEDTIME [facility] Last Admin: 12/15/19 20:16 Dose: 20 mg Calcium Carbonate/Glycine (Oyster Shell Calcium) 1,000 mg PO DAILY [facility] Last Admin: 12/16/19 08:27 Dose: 1,000 mg Folic Acid (Folic Acid) 1 mg PO DAILY [facility] Last Admin: 12/16/19 08:27 Dose: 1 mg Sodium Chloride (Normal Saline) 1,000 mls @ 125 mls/hr IV ASDIRECTED [facility] Last Admin: 12/16/19 00:59 Dose: 125 mls/hr Piperacillin Sod/Tazobactam (Sod 3.375 gm/ Sodium Chloride) 50 mls @ 100 mls/ hr IV Q8H [facility] Last Admin: 12/16/19 08:30 Dose: 100 mls/hr Vancomycin HCl 1 gm/ Sodium (Chloride) 250 mls @ 166 mls/hr IV Q12H [facility] Last Admin: 12/16/19 02:02 Dose: 166 mls/hr Pantoprazole Sodium 40 mg/ (Sodium Chloride) 10 mls @ 300 mls/hr IV Q12H [facility] Last Admin: 12/16/19 06:29 Dose: 300 mls/hr Ondansetron HCl (Zofran) 4 mg IVPUSH Q4H PRN PRN Reason: Nausea/Vomiting Last Admin: 12/15/19 18:46 Dose: 4 mg Oxycodone HCl (Oxycodone) 10 mg PO Q6HR PRN PRN Reason: pain Last Admin: 12/16/19 00:50 Dose: 10 mg Senna (Senna) 8.6 mg PO DAILY [facility] Last Admin: 12/16/19 08:27 Dose: 8.6 mg Sodium Chloride (Saline Flush) 10 ml FLUSH ASDIRECTED PRN PRN Reason: Keep Vein Open Last Admin: 12/14/19 23:11 Dose: 10 ml Sodium Chloride (Saline Flush) 2.5 ml FLUSH ASDIRECTED PRN PRN Reason: Keep Vein Open Last Admin: 12/14/19 23:11 Dose: 2.5 ml Tamsulosin HCl (Flomax) 0.4 mg PO DAILY [facility] Last Admin: 12/16/19 08:27 Dose: 0.4 mg Vancomycin HCl (Pharmacy To Dose - Vancomycin) 1 dose .XX ASDIRECTED [facility] Discontinued Medications Calcium Carbonate/Glycine (Oyster Shell Calcium) 1,000 mg PO DAILY [facility] Gabapentin (Neurontin) 300 mg PO ASDIRECTED [facility] Sodium Chloride (Normal Saline) 1,000 mls @ 1,000 mls/hr IV .Bolus ONE Stop: 12/14/19 23:44 Last Admin: 12/14/19 23:11 Dose: 1,000 mls/hr Piperacillin Sod/Tazobactam (Sod 4.5 gm/ Sodium Chloride) 100 mls @ 100 mls/hr IV ONETIME ONE Stop: 12/15/19 02:16 Last Admin: 12/15/19 01:29 Dose: 100 mls/hr Vancomycin HCl 1.5 gm/ Premix 300 mls @ 200 mls/hr IV ONETIME ONE Stop: 12/15/19 04:29 Last Admin: 12/15/19 03:05 Dose: 200 mls/hr Sodium Chloride (Normal Saline) 1,000 mls @ 999 mls/hr IV BOLUS ONE Stop: 12/15/19 05:47 Last Admin: 12/15/19 04:50 Dose: 999 mls/hr Magnesium Sulfate 4 gm/ Premix 100 mls @ 50 mls/hr IV ONETIME ONE Stop: 12/15/19 09:28 Last Admin: 12/15/19 08:05 Dose: 50 mls/hr Iopamidol (Isovue-370 (76%)) 100 ml IVPUSH ONETIME ONE Stop: 12/15/19 00:22 Last Admin: 12/15/19 00:21 Dose: 100 ml Calcium Carbonate 1, (200 Mg) 1 each PO DAILY [facility] Last Admin: 12/15/19 11:51 Dose: Not Given Potassium Chloride (Klor-Con M20) 40 meq PO ONETIME ONE Stop: 12/15/19 07:29 Last Admin: 12/15/19 08:05 Dose: 40 meq
== END 2019-12-16 11:45 | disposition home or self-care (01) ==
LOC: MW.ED 22:09 → MW.MS 12-15 01:17
PROVIDERS: ADMIT Student in an Organized Health Care Education/Training Program; ATTEND Student in an Organized Health Care Education/Training Program
DX: A41.9 Sepsis, unspecified organism (principal); D61.810 Antineoplastic chemotherapy induced pancytopenia; T45.1X5A Adverse effect of antineoplastic and immunosuppressive drugs, initial encounter; D46.0 Refractory anemia without ring sideroblasts, so stated; E83.42 Hypomagnesemia; E78.00 Pure hypercholesterolemia, unspecified; J44.1 Chronic obstructive pulmonary disease with (acute) exacerbation; E87.6 Hypokalemia; K21.9 Gastro-esophageal reflux disease without esophagitis; Z20.828 Contact with and (suspected) exposure to other viral communicable diseases; Z79.899 Other long term (current) drug therapy
CPT/HCPCS: 36415; 36430; 71046; 74177; 80048; 80053; 81001; 83605; 83735; 84100; 84484; 85014; 85018; 85025; 85610; 86850; 86900; 86901; 86920; 86921; 86922; 87040; 96361; 96365; 96366; 96367; 96375; 96376; 99285; A9270; C9113; G0378; J2405; J2543; J3370; J3475; J7030; J7050; P9016; Q9967; U0002; 99284

== ENCOUNTER 2020-05-26 22:32 | Observation (INO) | payer MEDICARE, MEDICAID, OTHER ==
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
[2020-05-26] MEDS ORDERED: Acetaminophen 500 MG Tab PO ONE (23:11)
[2020-05-26] MEDS ORDERED: Acetaminophen 325 MG/10.15 ML ML PO ONE (23:26)
[2020-05-26] MEDS ORDERED: Sodium Chloride 0.9% 1,000 ML IV ONE (23:26)
[2020-05-26] MEDS ORDERED: Acetaminophen 325 MG Tab ONE (23:28)
[2020-05-26] MEDS ORDERED: Acetaminophen 325 MG Tab PO ONE (23:32)
--- NOTE | 2020-05-26 23:36 | CR ---
INDICATION: Fever unknown source TECHNIQUE: Chest radiograph 1 view COMPARISON: 12/14/2019 FINDINGS: Mediastinum: The mediastinum is normal in appearance. The heart silhouette is normal in size and morphology. Lung: Mild bibasilar airspace densities are present There is a stable granuloma in the right midlung zone measuring 5 mm. A punctate stable granuloma is noted in the left upper lobe. No sign of pleural effusion seen. No pneumothorax is identified. Bone and Soft tissue: Unremarkable for age. IMPRESSION: 1. Mild bibasilar airspace densities are present These findings can be seen with atelectasis and/or pneumonia. Dictated by Javi Burleson MD @ 05/26/2020 11:35:16 PM Dictated by: Javi Burleson MD @ 05/26/2020 23:35:18 (Electronically Signed)
[2020-05-26 23:46] LABS: BLOOD UREA NITROGEN,BUN 11 mg/dL (7.0-18.0); CARBON DIOXIDE,CO2 26.5 mmol/L (21.0-32.0); CHLORIDE,CL 99 mmol/L (98-107); GLUCOSE RANDOM 109 mg/dL (74-106); LIPASE 30 U/L (73-393); POTASSIUM,K 3.1 mmol/L (3.5-5.1); SODIUM,NA 133 mmol/L (136-148)
[2020-05-27] MEDS ORDERED: Piperacillin/Tazobactam 3.375 GM in Sodium Chloride 0.9% 50 ML IV ONE (00:03)
[2020-05-27] MEDS ORDERED: Sodium Chloride 0.9% 1,000 ML IV STA (00:49)
[2020-05-27] MEDS ORDERED: Acetaminophen 325 MG Tab PO PRN (02:34)
[2020-05-27] MEDS ORDERED: Ondansetron 4 MG/2 ML SDV IVPUSH PRN (02:36)
[2020-05-27] MEDS: Lactated Ringers 1,000 ML IV SCH ×2 (02:37→13:38)
[2020-05-27 07:22] LABS: BLOOD UREA NITROGEN,BUN 12 mg/dL (7.0-18.0); CARBON DIOXIDE,CO2 25.2 mmol/L (21.0-32.0); CHLORIDE,CL 107 mmol/L (98-107); GLUCOSE RANDOM 104 mg/dL (74-106); POTASSIUM,K 3.3 mmol/L (3.5-5.1); SODIUM,NA 140 mmol/L (136-148)
[2020-05-27] MEDS: Pantoprazole 40 MG in Sodium Chloride 0.9% 10 ML IV SCH (08:39)
[2020-05-27] MEDS: Piperacillin/Tazobactam 4.5 GM in Sodium Chloride 0.9% 100 ML IV SCH ×2 (08:43→17:28)
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
[2020-05-27] MEDS ORDERED: Potassium Chloride 20 MEQ Tab.ER PO ONE (10:00)
[2020-05-27] MEDS ORDERED: Magnesium Sulfate/Water 4 GM in Premix Bag 1 BAG IV ONE (10:00)
[2020-05-27] MEDS ORDERED: Acetaminophen/oxyCODONE 325-10 MG Tab PO PRN ×2 (10:03→16:00)
[2020-05-27] MEDS ORDERED: Cyclobenzaprine 5 MG Tab PO PRN (12:44)
[2020-05-27] MEDS ORDERED: Ondansetron 4 MG Tab PO PRN (12:44)
[2020-05-27] MEDS ORDERED: Prochlorperazine 10 MG Tab PO PRN (12:44)
[2020-05-27] MEDS ORDERED: Cetirizine 10 MG Tab PO PRN (12:44)
[2020-05-27] MEDS: OLODATEROL INH SCH (13:41)
[2020-05-27] MEDS: TIOTROPIUM INH SCH (13:41)
[2020-05-27] MEDS: Ascorbic Acid 500 MG Tab PO SCH ×2 (13:57→22:51)
[2020-05-27] MEDS ORDERED: Albuterol HFA 18 Gm Inhaler INH PRN (14:00)
[2020-05-27] MEDS: Acetaminophen/oxyCODONE 325-10 MG Tab PO PRN ×2 (15:30→20:48)
[2020-05-27 15:45] LABS: POTASSIUM,K 3.7 mmol/L (3.5-5.1)
[2020-05-27] MEDS ORDERED: Calcium Carbonate/Vitamin D3 1500 MG-400 Units Tab PO SCH (18:00)
[2020-05-28] MEDS: Lactated Ringers 1,000 ML IV SCH (00:29)
[2020-05-28] MEDS: Piperacillin/Tazobactam 4.5 GM in Sodium Chloride 0.9% 100 ML IV SCH ×2 (01:09→08:40)
[2020-05-28] MEDS: Ascorbic Acid 500 MG Tab PO SCH ×2 (06:25→14:47)
[2020-05-28] MEDS: Acetaminophen/oxyCODONE 325-10 MG Tab PO PRN ×2 (06:25→11:34)
[2020-05-28] MEDS ORDERED: Omeprazole 20 MG Cap.CR PO SCH (07:30)
[2020-05-28 07:47] LABS: BLOOD UREA NITROGEN,BUN 10 mg/dL (7.0-18.0); CARBON DIOXIDE,CO2 24.7 mmol/L (21.0-32.0); CHLORIDE,CL 107 mmol/L (98-107); GLUCOSE RANDOM 96 mg/dL (74-106); POTASSIUM,K 3.7 mmol/L (3.5-5.1); SODIUM,NA 140 mmol/L (136-148)
[2020-05-28] MEDS: Pantoprazole 40 MG in Sodium Chloride 0.9% 10 ML IV SCH (08:33)
[2020-05-28] MEDS ORDERED: Folic Acid 1 MG Tab PO SCH (09:00)
[2020-05-28] MEDS ORDERED: atorvaSTATin 20 MG Tab PO SCH ×2 (09:00)
[2020-05-28] MEDS ORDERED: Tamsulosin 0.4 MG Cap.ER PO SCH (09:00)
[2020-05-28] MEDS: OLODATEROL INH SCH (11:33)
[2020-05-28] MEDS: TIOTROPIUM INH SCH (11:33)
--- NOTE | 2020-05-28 15:14 | PCM.DCSUM1 ---
<Evelyn Enrique - Last Filed: 05/28/20 15:38> Discharge Summary - Hospital Course Brief History: Patient is a 74-year-old male who presents today for fevers chills and weakness. Patient has history of cancer. Patient also has had recurrent low hemoglobins with unknown source. Patient denies any blood in stool. Patient also reports a slight cough nonproductive. Patient daughter states the patient has been seen and slightly confused as well. Pt has not had any head injuries. Diagnosis: Stroke: No - Discharge Data Discharge Date: 05/28/20 Discharge Disposition: Home, Self-Care 01 Condition: Good - Referral to Home Health Primary Care Physician: Hudson Enriquez MD - Discharge Diagnosis/Problem(s) (1) Lumbar back pain SNOMED Code(s): 921987887 ICD Code: M54.5 - LOW BACK PAIN Status: Chronic (2) Fever, unknown origin SNOMED Code(s): 3816281 ICD Code: R50.9 - FEVER, UNSPECIFIED Status: Acute (3) Anemia SNOMED Code(s): 983527667 ICD Code: D64.9 - ANEMIA, UNSPECIFIED Status: Acute - Patient Summary/Data Hospital Course: Pt had fevers of unknown source which there was no obvious source found, except for bibasilar infiltrates which could represent atelectasis versus pneumonia. Was started on Vanc and Zosyn. Blood cultured had no growth after 24 hrs, patient remained afebrile. Will send home on Levaquin as he is a cancer pt and at risk due to being immunocompromised. Furthermore, pt was confused and anemia with Hgb of 6.1 on admission; resulting in 2 UNITS PRBC's. He tolerated the transfusion well, stated he felt better today. Was AOx4 today able to follow commands and understand conversations and demonstrated a logical and linear thought process. During admission electrolytes were repleted ( mag / potassium), repeat HGN post-tranfusion was 8.o. Per morning labsHGb was 7.9. We transfused 1 additional nit prior to discharge. Pt is to follow up with and Dr. Carrillo post d/c discuss further workup for anemia. Pt regularly gets labs for H/H on Mondays in the oncology clinic. - Discharge Plan *PRESCRIPTION DRUG MONITORING PROGRAM REVIEWED*: Not Applicable *COPY OF PRESCRIPTION DRUG MONITORING REPORT IN PATIENT BILL: Not Applicable Prescriptions/Med Rec: levoFLOXacin [Levaquin] 750 mg PO DAILY 6 Days #6 tab Home Medications: Home Meds Folic Acid 1 mg PO DAILY 04/04/14 [History] atorvaSTATin Calcium [Atorvastatin Calcium] 20 mg PO DAILY 04/04/14 [History] Tamsulosin [Flomax] 0.4 mg PO DAILY 10/12/16 [History] Esomeprazole Magnesium [Nexium] 40 mg PO DAILY 11/25/18 [History] Calcium Carbonate [Calcium] 1,200 mg PO ACDINNER 12/14/19 [History] Sennosides [Senna] 1 tab PO TID 12/14/19 [History] Albuterol [Proventil HFA] 1 puff INH TID PRN 05/26/20 [History] Ascorbic Acid [Vitamin C] 500 mg PO TID 05/26/20 [History] Cetirizine [ZyrTEC] 10 mg PO DAILY PRN 05/26/20 [History] Cyclobenzaprine [Flexeril] 5 mg PO TID PRN 05/26/20 [History] Ondansetron [Zofran] 8 mg PO DAILY PRN 05/26/20 [History] Prochlorperazine [Compazine] 10 mg PO Q4HR PRN 05/26/20 [History] Tiotropium BR/Olodaterol HCL [Stiolto Respimat] 1 puff INH TID PRN 05/26/20 [Hi story] atorvaSTATin [Lipitor] 20 mg PO DAILY 05/27/20 [History] oxyCODONE HCl/Acetaminophen [Oxycodone-Acetaminophen 10-300] 1 each PO Q4HR 05/27/20 [History] Acetaminophen/oxyCODONE [Percocet 325-10 MG] 1 tab PO Q4H PRN tablet 05/28/20 [Rx] Docusate Sodium/Sennosides [Senna Plus] 2 tab PO BEDTIME tablet 05/28/20 [Rx] levoFLOXacin [Levaquin] 750 mg PO DAILY 6 Days #6 tab 05/28/20 [Rx] Oxygen Therapy Mode: Room Air Patient Handouts: Fever, Adult, Chronic Obstructive Pulmonary Disease, [id number], Levofloxacin tablets Forms: ED Department Discharge Referrals: Hudson Enriquez MD [Primary Care Provider] - 06/03/20 1:00 pm - Discharge Summary/Plan Comment DC Time >30 min.: No - Patient Data Vitals - Most Recent: Last Vital Signs Temp 98.7 F 05/28/20 14:37 Pulse 75 05/28/20 14:37 Resp 18 05/28/20 14:37 BP 120/58 L 05/28/20 14:37 Pulse Ox 92 L 05/28/20 14:37 Weight - Most Recent: 65.5 kg I&O - Last 24 hours: Intake & Output 05/28/20 05/28/20 05/28/20 06:59 14:59 22:59 Intake Total 1893 350 Output Total 1500 Balance 393 350 Lab Results - Last 24 hrs: Laboratory Results - last 24 hr 05/27/20 05/27/20 05/27/20 Range/Units 07:53 15:08 16:48 WBC (4.0-11.0) K/uL RBC (4.50-5.90) M/uL Hgb 8.0 L (13.0-17.0) g/dL Hct 23.6 L (38.0-50.0) % MCV (80.0-98.0) fL MCH (27.0-32.0) pg MCHC (31.0-37.0) g/dL RDW Std Deviation (28.0-62.0) fl RDW Coeff of Pedro (11.0-15.0) % Plt Count (150-400) K/uL MPV (7.40-12.00) fL Neut % (Auto) (48.0-80.0) % Lymph % (Auto) (16.0-40.0) % [place] % (Auto) (0.0-15.0) % Eos % (Auto) (0.0-7.0) % Baso % (Auto) (0.0-1.5) % Neut # (Auto) (1.4-5.7) K/uL Lymph # (Auto) (0.6-2.4) K/uL [place]er # (Auto) (0.0-0.8) K/uL Eos # (Auto) (0.0-0.7) K/uL Baso # (Auto) (0.0-0.1) K/uL Nucleated RBC % /100WBC Nucleated RBCs # K/uL Sodium (136-148) mmol/L Potassium 3.7 (3.5-5.1) mmol/L Chloride (98-107) mmol/L Carbon Dioxide (21.0-32.0) mmol/L BUN (7.0-18.0) mg/dL Creatinine (0.8-1.3) mg/dL Est Cr Clr Drug Dosing mL/min Estimated GFR (MDRD) ml/min Glucose (74-106) mg/dL Calcium (8.5-10.1) mg/dL Phosphorus (2.6-4.7) mg/dL Magnesium 2.9 H (1.8-2.4) mg/dL Total Bilirubin (0.2-1.0) mg/dL AST (15-37) IU/L ALT (14-63) IU/L Alkaline Phosphatase (46-116) U/L Total Protein (6.4-8.2) g/dL Albumin (3.4-5.0) g/dL Globulin (2.6-4.0) g/dL Albumin/Globulin Ratio (0.9-1.6) Blood Type O NEGATIVE Antibody Screen NEGATIVE Crossmatch See Detail 05/28/20 05/28/20 Range/Units 07:09 07:09 WBC 3.54 L (4.0-11.0) K/uL RBC 2.47 L (4.50-5.90) M/uL Hgb 7.9 L (13.0-17.0) g/dL Hct 23.7 L (38.0-50.0) % MCV 96.0 (80.0-98.0) fL MCH 32.0 (27.0-32.0) pg MCHC 33.3 (31.0-37.0) g/dL RDW Std Deviation 88.1 H (28.0-62.0) fl RDW Coeff of Pedro 27 H (11.0-15.0) % Plt Count 118 L (150-400) K/uL MPV 9.90 (7.40-12.00) fL Neut % (Auto) 80.2 H (48.0-80.0) % Lymph % (Auto) 12.7 L (16.0-40.0) % [place]er % (Auto) 6.5 (0.0-15.0) % Eos % (Auto) 0.6 (0.0-7.0) % Baso % (Auto) 0.0 (0.0-1.5) % Neut # (Auto) 2.8 (1.4-5.7) K/uL Lymph # (Auto) 0.5 L (0.6-2.4) K/uL Towner # (Auto) 0.2 (0.0-0.8) K/uL Eos # (Auto) 0.0 (0.0-0.7) K/uL Baso # (Auto) 0.0 (0.0-0.1) K/uL Nucleated RBC % 0.0 /100WBC Nucleated RBCs # 0 K/uL Sodium 140 (136-148) mmol/L Potassium 3.7 (3.5-5.1) mmol/L Chloride 107 (98-107) mmol/L Carbon Dioxide 24.7 (21.0-32.0) mmol/L BUN 10 (7.0-18.0) mg/dL Creatinine 0.9 (0.8-1.3) mg/dL Est Cr Clr Drug Dosing 66.71 mL/min Estimated GFR (MDRD) > 60.0 ml/min Glucose 96 (74-106) mg/dL Calcium 7.5 L (8.5-10.1) mg/dL Phosphorus 2.8 (2.6-4.7) mg/dL Magnesium 2.1 (1.8-2.4) mg/dL Total Bilirubin 0.7 (0.2-1.0) mg/dL AST 13 L (15-37) IU/L ALT 14 (14-63) IU/L Alkaline Phosphatase 49 (46-116) U/L Total Protein 5.5 L (6.4-8.2) g/dL Albumin 2.3 L (3.4-5.0) g/dL Globulin 3.2 (2.6-4.0) g/dL Albumin/Globulin Ratio 0.7 L (0.9-1.6) Blood Type Antibody Screen Crossmatch FRIEDA Results - Last 24 hrs: Microbiology 05/26/20 23:37 Aerobic Blood Culture - Preliminary Blood - Venous - Lab Draw NO GROWTH AFTER 1 DAY Anaerobic Blood Culture - Preliminary NO GROWTH AFTER 1 DAY 05/26/20 23:20 Aerobic Blood Culture - Preliminary Blood - Venous NO GROWTH AFTER 1 DAY Anaerobic Blood Culture - Preliminary NO GROWTH AFTER 1 DAY Med Orders - Current: Current Medications Acetaminophen (Tylenol) 650 mg PO Q6H PRN PRN Reason: Pain/Fever Albuterol (Ventolin Hfa) 0 gm INH Q4HRRT PRN PRN Reason: Dyspnea Ascorbic Acid (Vitamin C) 500 mg PO TID [facility] Last Admin: 05/28/20 14:47 Dose: 500 mg Documented by: Atorvastatin Calcium (Lipitor) 20 mg PO DAILY [facility] Last Admin: 05/28/20 08:33 Dose: 20 mg Documented by: Calcium Carbonate (Caltrate 600+D 1500 Mg-400 Units) 1 tab PO QPM [facility] Last Admin: 05/27/20 17:39 Dose: 1 tab Documented by: Cyclobenzaprine HCl (Flexeril) 5 mg PO TID PRN PRN Reason: Spasms Folic Acid (Folic Acid) 1 mg PO DAILY [facility] Last Admin: 05/28/20 08:33 Dose: 1 mg Documented by: Pantoprazole Sodium 40 mg/ (Sodium Chloride) 10 mls @ 300 mls/hr IV DAILY [facility] Last Admin: 05/28/20 08:33 Dose: 300 mls/hr Documented by: Piperacillin Sod/Tazobactam (Sod 4.5 gm/ Sodium Chloride) 100 mls @ 100 mls/hr IV Q8H [facility] Last Admin: 05/28/20 08:40 Dose: 100 mls/hr Documented by: Vancomycin HCl 1 gm/ Sodium (Chloride) 250 mls @ 166 mls/hr IV Q12H [facility] Last Admin: 05/28/20 10:20 Dose: 166 mls/hr Documented by: Omeprazole (Omeprazole) 40 mg PO ACBREAKFAST [facility] Last Admin: 05/28/20 06:48 Dose: 40 mg Documented by: Ondansetron HCl (Zofran) 4 mg IVPUSH Q4H PRN PRN Reason: Nausea/Vomiting Oxycodone/Acetaminophen (Percocet 325-10 Mg) 1 tab PO Q4H PRN PRN Reason: Pain (moderate 4-6) Last Admin: 05/28/20 11:34 Dose: 1 tab Documented by: Tiotropium And Olodaterol [Stiolto Respimat] 2.5-2.5 Mcg/Actuation 2 each INH DAILY [facility] Last Admin: 05/28/20 11:33 Dose: 2 each Documented by: Prochlorperazine Maleate (Compazine) 10 mg PO Q6HR PRN PRN Reason: Nausea Senna/Docusate Sodium (Senna Plus) 1 tab PO DAILY@1200 [facility] Last Admin: 05/28/20 12:37 Dose: Not Given Documented by: Senna/Docusate Sodium (Senna Plus) 2 tab PO BEDTIME [facility] Last Admin: 05/27/20 20:48 Dose: 2 tab Documented by: Vancomycin HCl (Pharmacy To Dose - Vancomycin) 1 dose .XX ASDIRECTED [facility] Discontinued Medications Acetaminophen (Tylenol Extra Strength) 1,000 mg PO ONETIME ONE Stop: 05/26/20 23:12 Last Admin: 05/26/20 23:26 Dose: 1,000 mg Documented by: Acetaminophen (Tylenol) 650 mg PO NOW ONE Stop: 05/26/20 23:27 Last Admin: 05/26/20 23:33 Dose: Not Given Documented by: Acetaminophen (Tylenol) Confirm Administered Dose 650 mg .ROUTE .STK-MED ONE Stop: 05/26/20 23:29 Last Admin: 05/26/20 23:33 Dose: Not Given Documented by: Acetaminophen (Tylenol) 650 mg PO NOW ONE Stop: 05/26/20 23:33 Last Admin: 05/26/20 23:33 Dose: 650 mg Documented by: Cetirizine HCl (Zyrtec) 10 mg PO DAILY PRN PRN Reason: Itching Sodium Chloride (Normal Saline) 1,000 mls @ 999 mls/hr IV .Bolus ONE Stop: 05/27/20 00:26 Last Admin: 05/26/20 23:33 Dose: 999 mls/hr Documented by: Vancomycin HCl 1 gm/ Sodium (Chloride) 250 mls @ 166 mls/hr IV ONETIME ONE Stop: 05/27/20 01:32 Last Admin: 05/27/20 00:12 Dose: 166 mls/hr Documented by: Piperacillin Sod/Tazobactam (Sod 3.375 gm/ Sodium Chloride) 50 mls @ 100 mls/hr IV ONETIME ONE Stop: 05/27/20 00:32 Last Admin: 05/27/20 00:55 Dose: 100 mls/hr Documented by: Sodium Chloride (Normal Saline) 1,000 mls @ 999 mls/hr IV NOW STA Stop: 05/27/20 01:49 Last Admin: 05/27/20 00:54 Dose: 999 mls/hr Documented by: Lactated Ringer's (Ringers, Lactated) 1,000 mls @ 125 mls/hr IV ASDIRECTED [facility] Last Admin: 05/28/20 00:29 Dose: 125 mls/hr Documented by: Vancomycin HCl 1 gm/ Sodium (Chloride) 250 mls @ 166 mls/hr IV Q12H [facility] Last Admin: 05/27/20 20:52 Dose: 166 mls/hr Documented by: Magnesium Sulfate 4 gm/ Premix 100 mls @ 50 mls/hr IV ONETIME ONE Stop: 05/27/20 11:59 Last Admin: 05/27/20 12:17 Dose: 50 mls/hr Documented by: Ondansetron HCl (Zofran) 8 mg PO DAILY PRN PRN Reason: Nausea Oxycodone/Acetaminophen (Percocet 325-10 Mg) 1 tab PO Q6H PRN PRN Reason: Pain Last Admin: 05/27/20 10:44 Dose: 1 tab Documented by: Potassium Chloride (Klor-Con M20) 40 meq PO ONETIME ONE Stop: 05/27/20 10:01 Last Admin: 05/27/20 10:43 Dose: 40 meq Documented by: Tamsulosin HCl (Flomax) 0.4 mg PO DAILY [facility] *Q Meaningful Use (DIS) - VTE *Q VTE Mechanical Contraindications *Q: At Risk for Falls <Ana Lawrence - Last Filed: 06/02/20 12:41> Discharge Summary - Referral to Home Health Primary Care Physician: Hudson Enriquez MD - Discharge Summary/Plan Comment Discharge Summary/Plan Comment: I have seen and evaluated the patient and agree with the residents note unless specified in my note - Patient Data Vitals - Most Recent: Last Vital Signs Temp 36.8 C 05/28/20 15:00 Pulse 76 05/28/20 15:00 Resp 18 05/28/20 15:00 BP 158/72 H 05/28/20 15:00 Pulse Ox 95 05/28/20 15:00 Med Orders - Current: Current Medications Discontinued Medications Acetaminophen (Tylenol Extra Strength) 1,000 mg PO ONETIME ONE Stop: 05/26/20 23:12 Last Admin: 05/26/20 23:26 Dose: 1,000 mg Documented by: Acetaminophen (Tylenol) 650 mg PO NOW ONE Stop: 05/26/20 23:27 Last Admin: 05/26/20 23:33 Dose: Not Given Documented by: Acetaminophen (Tylenol) Confirm Administered Dose 650 mg .ROUTE .STK-MED ONE Stop: 05/26/20 23:29 Last Admin: 05/26/20 23:33 Dose: Not Given Documented by: Acetaminophen (Tylenol) 650 mg PO NOW ONE Stop: 05/26/20 23:33 Last Admin: 05/26/20 23:33 Dose: 650 mg Documented by: Acetaminophen (Tylenol) 650 mg PO Q6H PRN PRN Reason: Pain/Fever Albuterol (Ventolin Hfa) 0 gm INH Q4HRRT PRN PRN Reason: Dyspnea Ascorbic Acid (Vitamin C) 500 mg PO TID [facility] Last Admin: 05/28/20 14:47 Dose: 500 mg Documented by: Atorvastatin Calcium (Lipitor) 20 mg PO DAILY [facility] Last Admin: 05/28/20 08:33 Dose: 20 mg Documented by: Calcium Carbonate (Caltrate 600+D 1500 Mg-400 Units) 1 tab PO QPM [facility] Last Admin: 05/27/20 17:39 Dose: 1 tab Documented by: Cetirizine HCl (Zyrtec) 10 mg PO DAILY PRN PRN Reason: Itching Cyclobenzaprine HCl (Flexeril) 5 mg PO TID PRN PRN Reason: Spasms Folic Acid (Folic Acid) 1 mg PO DAILY [facility] Last Admin: 05/28/20 08:33 Dose: 1 mg Documented by: Sodium Chloride (Normal Saline) 1,000 mls @ 999 mls/hr IV .Bolus ONE Stop: 05/27/20 00:26 Last Admin: 05/26/20 23:33 Dose: 999 mls/hr Documented by: Vancomycin HCl 1 gm/ Sodium (Chloride) 250 mls @ 166 mls/hr IV ONETIME ONE Stop: 05/27/20 01:32 Last Admin: 05/27/20 00:12 Dose: 166 mls/hr Documented by: Piperacillin Sod/Tazobactam (Sod 3.375 gm/ Sodium Chloride) 50 mls @ 100 mls/hr IV ONETIME ONE Stop: 05/27/20 00:32 Last Admin: 05/27/20 00:55 Dose: 100 mls/hr Documented by: Sodium Chloride (Normal Saline) 1,000 mls @ 999 mls/hr IV NOW STA Stop: 05/27/20 01:49 Last Admin: 05/27/20 00:54 Dose: 999 mls/hr Documented by: Lactated Ringer's (Ringers, Lactated) 1,000 mls @ 125 mls/hr IV ASDIRECTED [facility] Last Admin: 05/28/20 00:29 Dose: 125 mls/hr Documented by: Pantoprazole Sodium 40 mg/ (Sodium Chloride) 10 mls @ 300 mls/hr IV DAILY [facility] Last Admin: 05/28/20 08:33 Dose: 300 mls/hr Documented by: Piperacillin Sod/Tazobactam (Sod 4.5 gm/ Sodium Chloride) 100 mls @ 100 mls/hr IV Q8H [facility] Last Admin: 05/28/20 08:40 Dose: 100 mls/hr Documented by: Vancomycin HCl 1 gm/ Sodium (Chloride) 250 mls @ 166 mls/hr IV Q12H [facility] Last Admin: 05/27/20 20:52 Dose: 166 mls/hr Documented by: Magnesium Sulfate 4 gm/ Premix 100 mls @ 50 mls/hr IV ONETIME ONE Stop: 05/27/20 11:59 Last Admin: 05/27/20 12:17 Dose: 50 mls/hr Documented by: Vancomycin HCl 1 gm/ Sodium (Chloride) 250 mls @ 166 mls/hr IV Q12H [facility] Last Admin: 05/28/20 10:20 Dose: 166 mls/hr Documented by: Omeprazole (Omeprazole) 40 mg PO ACBREAKFAST [facility] Last Admin: 05/28/20 06:48 Dose: 40 mg Documented by: Ondansetron HCl (Zofran) 4 mg IVPUSH Q4H PRN PRN Reason: Nausea/Vomiting Ondansetron HCl (Zofran) 8 mg PO DAILY PRN PRN Reason: Nausea Oxycodone/Acetaminophen (Percocet 325-10 Mg) 1 tab PO Q6H PRN PRN Reason: Pain Last Admin: 05/27/20 10:44 Dose: 1 tab Documented by: Oxycodone/Acetaminophen (Percocet 325-10 Mg) 1 tab PO Q4H PRN PRN Reason: Pain (moderate 4-6) Last Admin: 05/28/20 11:34 Dose: 1 tab Documented by: Tiotropium And Olodaterol [Stiolto Respimat] 2.5-2.5 Mcg/Actuation 2 each INH DAILY [facility] Last Admin: 05/28/20 11:33 Dose: 2 each Documented by: Potassium Chloride (Klor-Con M20) 40 meq PO ONETIME ONE Stop: 05/27/20 10:01 Last Admin: 05/27/20 10:43 Dose: 40 meq Documented by: Prochlorperazine Maleate (Compazine) 10 mg PO Q6HR PRN PRN Reason: Nausea Senna/Docusate Sodium (Senna Plus) 1 tab PO DAILY@1200 [facility] Last Admin: 05/28/20 12:37 Dose: Not Given Documented by: Senna/Docusate Sodium (Senna Plus) 2 tab PO BEDTIME [facility] Last Admin: 05/27/20 20:48 Dose: 2 tab Documented by: Tamsulosin HCl (Flomax) 0.4 mg PO DAILY [facility] Vancomycin HCl (Pharmacy To Dose - Vancomycin) 1 dose .XX ASDIRECTED [facility]
[2020-05-28 19:38] VITALS: BP 158/72; PULSE 76
== END 2020-05-28 16:45 | disposition home or self-care (01) ==
LOC: MW.ED 22:32 → MW.MS 05-27 00:54
PROVIDERS: ADMIT Student in an Organized Health Care Education/Training Program; ATTEND Student in an Organized Health Care Education/Training Program
DX: R50.9 Fever, unspecified (principal); R41.0 Disorientation, unspecified; D46.9 Myelodysplastic syndrome, unspecified; E78.00 Pure hypercholesterolemia, unspecified; M54.5 Low back pain; E87.6 Hypokalemia; E83.42 Hypomagnesemia; Z79.899 Other long term (current) drug therapy; Z20.828 Contact with and (suspected) exposure to other viral communicable diseases
CPT/HCPCS: 36415; 36430; 71045; 80048; 80053; 81001; 83605; 83690; 83735; 84100; 84132; 84484; 85014; 85018; 85025; 86850; 86900; 86901; 86920; 86921; 86922; 87040; 93005; 96365; 96366; 96367; 96375; 96376; 99285; A9270; C9113; G0378; J2543; J3370; J3475; J7030; J7050; J7120; P9016; U0002; 99291

== ENCOUNTER 2020-08-15 13:52 | Emergency (ER) | payer MEDICARE, MEDICAID, OTHER ==
[2020-08-15] MEDS ORDERED: Sodium Chloride 0.9% 10 ML Syringe FLUSH PRN (13:55)
[2020-08-15] MEDS ORDERED: Sodium Chloride 0.9% 2.5 ML Syringe FLUSH PRN (13:55)
--- NOTE | 2020-08-15 14:17 | PCM.SN.2 ---
#1 Interpretation EKG Date: 08/15/20 Time: 14:06 Rhythm: NSR Rate (Beats/Min): 80 [place]: Normal P-Wave: Present QRS: Normal ST-T: Normal QT: Normal SD/PQ Interval: 164 EKG Interpretation Comments: No ischemic changes
[2020-08-15 15:06] LABS: BLOOD UREA NITROGEN,BUN 7 mg/dL (7.0-18.0); CARBON DIOXIDE,CO2 25.9 mmol/L (21.0-32.0); CHLORIDE,CL 106 mmol/L (98-107); GLUCOSE RANDOM 118 mg/dL (74-106); POTASSIUM,K 3.4 mmol/L (3.5-5.1); SODIUM,NA 141 mmol/L (136-148)
--- NOTE | 2020-08-15 15:20 | CR ---
INDICATION: Weakness. COMPARISON: May 26, 2020 TECHNIQUE: Single-view portable chest radiograph FINDINGS: TUBES AND LINES: None. HEART AND MEDIASTINUM: The heart size is normal. The mediastinal contour appears normal for patient age. LUNGS AND PLEURAL SPACES: Lungs show no acute focal findings. Hyperinflation may be related to COPD. Calcified nodules consistent with granulomas unchanged. The pleural spaces are unremarkable OSSEOUS STRUCTURES: Age-appropriate appearance. No acute focal finding. IMPRESSION: Hyperinflated lungs. Evidence of remote granulomatous infection. No acute focal findings. Dictated by Chong Johnson MD @ Aug 15 2020 3:16PM Signed by Dr. Chong Johnson @ Aug 15 2020 3:17PM
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
[2020-08-15 18:24] VITALS: BP 112/57; PULSE 62
== END 2020-08-15 18:23 | disposition home or self-care (01) ==
LOC: MW.ED 13:52
DX: R53.1 Weakness (principal); E78.00 Pure hypercholesterolemia, unspecified; J44.9 Chronic obstructive pulmonary disease, unspecified; K21.9 Gastro-esophageal reflux disease without esophagitis; Z20.822 Contact with and (suspected) exposure to COVID-19; Z79.899 Other long term (current) drug therapy
CPT/HCPCS: 36415; 71045; 80053; 81003; 83605; 84484; 85025; 87040; 93005; 99285; U0002; 93010; 99283

== ENCOUNTER 2020-10-16 17:36 | Inpatient (IN) | payer MEDICARE, MEDICAID, OTHER ==
[2020-10-16] MEDS ORDERED: Sodium Chloride 0.9% 2.5 ML Syringe FLUSH PRN (18:03)
[2020-10-16] MEDS ORDERED: Acetaminophen 500 MG Tab PO ONE (18:03)
[2020-10-16] MEDS ORDERED: Sodium Chloride 0.9% 10 ML Syringe FLUSH PRN (18:03)
[2020-10-16] MEDS ORDERED: Sodium Chloride 0.9% 1,000 ML IV ONE ×2 (18:06→18:09)
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
[2020-10-16] MEDS ORDERED: Acetaminophen/oxyCODONE 325-10 MG Tab PO ONE (18:33)
[2020-10-16 18:49] LABS: BLOOD UREA NITROGEN,BUN 11 mg/dL (7.0-18.0); CHLORIDE,CL 101 mmol/L (98-107); GLUCOSE RANDOM 112 mg/dL (74-106); POTASSIUM,K 3.2 mmol/L (3.5-5.1); SODIUM,NA 137 mmol/L (136-148)
--- NOTE | 2020-10-16 19:04 | CR ---
Indication: Fever and cough Technique: Chest 1 view Comparison: Chest x-ray 08/15/2020 Findings/Impression: Cardiovascular and mediastinum: Normal heart size with aortic tortuosity and atherosclerotic calcification. Lungs and pleural space: No pleural effusion or pneumothorax. Calcified granuloma right lung. Mild bronchial wall thickening with some patchy opacities, best seen at the left lateral costophrenic angle suspicious for pneumonia in this clinical setting. Bones and soft tissues: No acute findings. Dictated by Nba Kline MD @ Oct 16 2020 7:01PM Signed by Dr. Nba Kline @ Oct 16 2020 7:03PM
[2020-10-16 19:40] LABS: CORONAVIRUS COVID-19 NAA NEGATIVE (NEGATIVE); INFLUENZA A NAA NEGATIVE (NEGATIVE); INFLUENZA B NAA NEGATIVE (NEGATIVE)
[2020-10-16] MEDS ORDERED: cefTRIAXone 2 GM in Premix Bag 1 BAG IV ONE (19:56)
[2020-10-16] MEDS ORDERED: Azithromycin 250 MG Tab PO STA (19:57)
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
[2020-10-16] MEDS ORDERED: Cyclobenzaprine 5 MG Tab PO PRN (23:06)
[2020-10-17] MEDS: Acetaminophen/oxyCODONE 325-10 MG Tab PO PRN ×3 (02:04→20:56)
[2020-10-17] MEDS: Omeprazole 20 MG Cap.CR PO SCH (07:52)
[2020-10-17] MEDS ORDERED: Potassium Chloride 20 MEQ Tab.ER PO ONE (08:06)
[2020-10-17] MEDS: atorvaSTATin 20 MG Tab PO SCH (09:17)
[2020-10-17] MEDS: Folic Acid 1 MG Tab PO SCH (09:17)
[2020-10-17] MEDS: Tamsulosin 0.4 MG Cap.ER PO SCH (09:17)
[2020-10-17] MEDS: OLODATEROL HCL INH SCH (10:33)
[2020-10-17] MEDS: TIOTROPIUM BR INH SCH (10:33)
--- NOTE | 2020-10-17 12:30 | PCM.PN ---
- General Info Date of Service: 10/17/20 Subjective Update: Patient states he feels fine this morning. Denies chest pain, denies shortness of breath denies fever, chills, nausea, vomiting. - Review of Systems General: Denies: Fever, Chills Pulmonary: Denies: Shortness of Breath, Cough Cardiovascular: Denies: Chest Pain, Orthopnea, Edema Gastrointestinal: Denies: Abdominal Pain, Nausea, Vomiting Genitourinary: Denies: Dysuria Neurological: Denies: Confusion, Dizziness - Patient Data Vitals - Most Recent: Last Vital Signs Temp 97.8 F 10/17/20 07:58 Pulse 94 10/17/20 07:58 Resp 17 10/17/20 07:58 BP 110/65 10/17/20 07:58 Pulse Ox 92 L 10/17/20 07:58 Weight - Most Recent: 139 lb 3.2 oz I&O - Last 24 Hours: Intake & Output 10/16/20 10/17/20 10/17/20 22:59 06:59 14:59 Intake Total 350 Balance 350 Lab Results Last 24 Hours: Laboratory Results - last 24 hr 10/16/20 10/16/20 10/16/20 Range/Units 16:30 18:10 18:10 WBC 7.90 (4.0-11.0) K/uL RBC 2.16 L (4.50-5.90) M/uL Hgb 7.7 L (13.0-17.0) g/dL Hct 23.4 L (38.0-50.0) % MCV 108.3 H (80.0-98.0) fL MCH 35.6 H (27.0-32.0) pg MCHC 32.9 (31.0-37.0) g/dL Plt Count 257 (150-400) K/uL MPV 9.50 (7.40-12.00) fL Add Manual Diff YES Neutrophils % (Manual) 59 (48.0-80.0) % Band Neutrophils % 10 % Lymphocytes % (Manual) 25 (16.0-40.0) % Monocytes % (Manual) 5 (0.0-15.0) % Metamyelocytes % 1 % Nucleated RBC % 0.0 /100WBC Absolute Seg Neuts 4.7 (1.4-5.7) Band Neutrophils # 0.8 Lymphocytes # (Manual) 2.0 (0.6-2.4) Monocytes # (Manual) 0.4 (0.0-0.8) Absolute Metamyelocyte 0.1 Nucleated RBCs # 0 K/uL Poikilocytosis 1+ SLIGHT Anisocytosis 1+ SLIGHT Lactate 1.2 (0.20-2.00) mmol/L Sodium (136-148) mmol/L Potassium (3.5-5.1) mmol/L Chloride (98-107) mmol/L Carbon Dioxide (21.0-32.0) mmol/L BUN (7.0-18.0) mg/dL Creatinine (0.8-1.3) mg/dL Est Cr Clr Drug Dosing Estimated GFR (MDRD) ml/min Glucose (74-106) mg/dL Calcium (8.5-10.1) mg/dL Magnesium (1.8-2.4) mg/dL Total Bilirubin (0.2-1.0) mg/dL AST (15-37) IU/L ALT (14-63) IU/L Alkaline Phosphatase (46-116) U/L Total Protein (6.4-8.2) g/dL Albumin (3.4-5.0) g/dL Globulin (2.6-4.0) g/dL Albumin/Globulin Ratio (0.9-1.6) Urine Color YELLOW Urine Appearance CLEAR Urine pH 7.5 (5.0-8.0) Ur Specific [place] 1.020 (1.001-1.035) Urine Protein NEGATIVE (NEGATIVE) mg/dL Urine Glucose (UA) NEGATIVE (NEGATIVE) mg/dL Urine Ketones NEGATIVE (NEGATIVE) mg/dL Urine Occult Blood TRACE-INTACT H (NEGATIVE) Urine Nitrite NEGATIVE (NEGATIVE) Urine Bilirubin NEGATIVE (NEGATIVE) Urine Urobilinogen 0.2 (<2.0) EU/dL Ur Leukocyte Esterase NEGATIVE (NEGATIVE) Urine RBC 0-3 (0-2/HPF) Urine WBC 0-1 (0-5/HPF) Ur Epithelial Cells RARE (NONE-FEW) Urine Bacteria RARE (NEGATIVE) Influenza Type A RNA (NEGATIVE) Influenza Type B RNA (NEGATIVE) SARS-CoV-2 RNA (NERI) (NEGATIVE) 10/16/20 10/16/20 10/16/20 Range/Units 18:10 18:10 18:40 WBC (4.0-11.0) K/uL RBC (4.50-5.90) M/uL Hgb (13.0-17.0) g/dL Hct (38.0-50.0) % MCV (80.0-98.0) fL MCH (27.0-32.0) pg MCHC (31.0-37.0) g/dL Plt Count (150-400) K/uL MPV (7.40-12.00) fL Add Manual Diff Neutrophils % (Manual) (48.0-80.0) % Band Neutrophils % % Lymphocytes % (Manual) (16.0-40.0) % Monocytes % (Manual) (0.0-15.0) % Metamyelocytes % % Nucleated RBC % /100WBC Absolute Seg Neuts (1.4-5.7) Band Neutrophils # Lymphocytes # (Manual) (0.6-2.4) Monocytes # (Manual) (0.0-0.8) Absolute Metamyelocyte Nucleated RBCs # K/uL Poikilocytosis Anisocytosis Lactate (0.20-2.00) mmol/L Sodium 137 (136-148) mmol/L Potassium 3.2 L (3.5-5.1) mmol/L Chloride 101 (98-107) mmol/L Carbon Dioxide 27.0 (21.0-32.0) mmol/L BUN 11 (7.0-18.0) mg/dL Creatinine 1.0 (0.8-1.3) mg/dL Est Cr Clr Drug Dosing TNP Estimated GFR (MDRD) > 60.0 ml/min Glucose 112 H (74-106) mg/dL Calcium 8.9 (8.5-10.1) mg/dL Magnesium 1.7 L (1.8-2.4) mg/dL Total Bilirubin 0.4 (0.2-1.0) mg/dL AST 10 L (15-37) IU/L ALT 17 (14-63) IU/L Alkaline Phosphatase 79 (46-116) U/L Total Protein 7.1 (6.4-8.2) g/dL Albumin 3.3 L (3.4-5.0) g/dL Globulin 3.8 (2.6-4.0) g/dL Albumin/Globulin Ratio 0.9 (0.9-1.6) Urine Color Urine Appearance Urine pH (5.0-8.0) Ur Specific [place] (1.001-1.035) Urine Protein (NEGATIVE) mg/dL Urine Glucose (UA) (NEGATIVE) mg/dL Urine Ketones (NEGATIVE) mg/dL Urine Occult Blood (NEGATIVE) Urine Nitrite (NEGATIVE) Urine Bilirubin (NEGATIVE) Urine Urobilinogen (<2.0) EU/dL Ur Leukocyte Esterase (NEGATIVE) Urine RBC (0-2/HPF) Urine WBC (0-5/HPF) Ur Epithelial Cells (NONE-FEW) Urine Bacteria (NEGATIVE) Influenza Type A RNA NEGATIVE (NEGATIVE) Influenza Type B RNA NEGATIVE (NEGATIVE) SARS-CoV-2 RNA (NERI) NEGATIVE (NEGATIVE) Med Orders - Current: Current Medications Atorvastatin Calcium (Atorvastatin 20 Mg Tab) 20 mg PO DAILY [facility] Last Admin: 10/17/20 09:17 Dose: 20 mg Documented by: Cyclobenzaprine HCl (Cyclobenzaprine 5 Mg Tab) 5 mg PO TID PRN PRN Reason: Spasms Folic Acid (Folic Acid 1 Mg Tab) 1 mg PO DAILY [facility] Last Admin: 10/17/20 09:17 Dose: 1 mg Documented by: Azithromycin 500 mg/ Sodium (Chloride) 250 mls @ 250 mls/hr IV Q24H [facility] Ceftriaxone Sodium/Dextrose (Rocephin In Dextrose,Iso-Osm 1 Gm/50 Ml) 50 mls @ 100 mls/hr IV Q12H [facility] Tiotropium Br/Olodaterol Hcl 4 Gm Inhaler 2 puff INH DAILY [facility] Last Admin: 10/17/20 10:33 Dose: Not Given Documented by: Omeprazole (Omeprazole 20 Mg Cap.Cr) 20 mg PO ACBREAKFAST [facility] Last Admin: 10/17/20 07:52 Dose: 20 mg Documented by: Oxycodone/Acetaminophen (Acetaminophen/Oxycodone 325-10 Mg Tab) 1 tab PO Q4H PRN PRN Reason: Pain (moderate 4-6) Last Admin: 10/17/20 09:17 Dose: 1 tab Documented by: Senna/Docusate Sodium (Docusate Sodium/Sennosides 50-8.6 Mg Tab) 2 tab PO BEDTIME [facility] Sodium Chloride (Sodium Chloride 0.9% 10 Ml Syringe) 10 ml FLUSH ASDIRECTED PRN PRN Reason: Keep Vein Open Last Admin: 10/16/20 18:29 Dose: 10 ml Documented by: Sodium Chloride (Sodium Chloride 0.9% 2.5 Ml Syringe) 2.5 ml FLUSH ASDIRECTED PRN PRN Reason: Keep Vein Open Last Admin: 10/16/20 18:29 Dose: 2.5 ml Documented by: Tamsulosin HCl (Tamsulosin 0.4 Mg Cap.Er) 0.4 mg PO DAILY [facility] Last Admin: 10/17/20 09:17 Dose: 0.4 mg Documented by: Discontinued Medications Acetaminophen (Acetaminophen 500 Mg Tab) 1,000 mg PO ONETIME ONE Stop: 10/16/20 18:04 Last Admin: 10/16/20 18:29 Dose: 1,000 mg Documented by: Azithromycin (Azithromycin 250 Mg Tab) 500 mg PO ONETIME STA Stop: 10/16/20 19:58 Last Admin: 10/16/20 20:25 Dose: 500 mg Documented by: Sodium Chloride (Normal Saline) 1,000 mls @ 1,000 mls/hr IV .Bolus ONE Stop: 10/16/20 19:05 Last Admin: 10/16/20 18:29 Dose: 1,000 mls/hr Documented by: Sodium Chloride (Normal Saline) 1,000 mls @ 1,000 mls/hr IV .Bolus ONE Stop: 10/16/20 19:08 Last Admin: 10/16/20 18:29 Dose: 1,000 mls/hr Documented by: Ceftriaxone Sodium/Dextrose 2 (gm/ Premix) 50 mls @ 100 mls/hr IV ONETIME ONE Stop: 10/16/20 20:25 Last Admin: 10/16/20 20:26 Dose: 100 mls/hr Documented by: Oxycodone/Acetaminophen (Acetaminophen/Oxycodone 325-10 Mg Tab) 1 tab PO ONETIME ONE Stop: 10/16/20 18:34 Last Admin: 10/16/20 18:38 Dose: 1 tab Documented by: Potassium Chloride (Potassium Chloride 20 Meq Tab.Er) 40 meq PO ONETIME ONE Stop: 10/17/20 08:07 Last Admin: 10/17/20 09:17 Dose: 40 meq Documented by: - Exam General: Alert Lungs: Clear to Auscultation, Normal Respiratory Effort Cardiovascular: Regular Rate GI/Abdominal Exam: Soft, Non-Tender Extremities: No Pedal Edema Psy/Mental Status: Alert - Patient Data Lab Results Last 24 hrs: Laboratory Results - last 24 hr 10/16/20 10/16/20 10/16/20 Range/Units 16:30 18:10 18:10 WBC 7.90 (4.0-11.0) K/uL RBC 2.16 L (4.50-5.90) M/uL Hgb 7.7 L (13.0-17.0) g/dL Hct 23.4 L (38.0-50.0) % MCV 108.3 H (80.0-98.0) fL MCH 35.6 H (27.0-32.0) pg MCHC 32.9 (31.0-37.0) g/dL Plt Count 257 (150-400) K/uL MPV 9.50 (7.40-12.00) fL Add Manual Diff YES Neutrophils % (Manual) 59 (48.0-80.0) % Band Neutrophils % 10 % Lymphocytes % (Manual) 25 (16.0-40.0) % Monocytes % (Manual) 5 (0.0-15.0) % Metamyelocytes % 1 % Nucleated RBC % 0.0 /100WBC Absolute Seg Neuts 4.7 (1.4-5.7) Band Neutrophils # 0.8 Lymphocytes # (Manual) 2.0 (0.6-2.4) Monocytes # (Manual) 0.4 (0.0-0.8) Absolute Metamyelocyte 0.1 Nucleated RBCs # 0 K/uL Poikilocytosis 1+ SLIGHT Anisocytosis 1+ SLIGHT Lactate 1.2 (0.20-2.00) mmol/L Sodium (136-148) mmol/L Potassium (3.5-5.1) mmol/L Chloride (98-107) mmol/L Carbon Dioxide (21.0-32.0) mmol/L BUN (7.0-18.0) mg/dL Creatinine (0.8-1.3) mg/dL Est Cr Clr Drug Dosing Estimated GFR (MDRD) ml/min Glucose (74-106) mg/dL Calcium (8.5-10.1) mg/dL Magnesium (1.8-2.4) mg/dL Total Bilirubin (0.2-1.0) mg/dL AST (15-37) IU/L ALT (14-63) IU/L Alkaline Phosphatase (46-116) U/L Total Protein (6.4-8.2) g/dL Albumin (3.4-5.0) g/dL Globulin (2.6-4.0) g/dL Albumin/Globulin Ratio (0.9-1.6) Urine Color YELLOW Urine Appearance CLEAR Urine pH 7.5 (5.0-8.0) Ur Specific [place] 1.020 (1.001-1.035) Urine Protein NEGATIVE (NEGATIVE) mg/dL Urine Glucose (UA) NEGATIVE (NEGATIVE) mg/dL Urine Ketones NEGATIVE (NEGATIVE) mg/dL Urine Occult Blood TRACE-INTACT H (NEGATIVE) Urine Nitrite NEGATIVE (NEGATIVE) Urine Bilirubin NEGATIVE (NEGATIVE) Urine Urobilinogen 0.2 (<2.0) EU/dL Ur Leukocyte Esterase NEGATIVE (NEGATIVE) Urine RBC 0-3 (0-2/HPF) Urine WBC 0-1 (0-5/HPF) Ur Epithelial Cells RARE (NONE-FEW) Urine Bacteria RARE (NEGATIVE) Influenza Type A RNA (NEGATIVE) Influenza Type B RNA (NEGATIVE) SARS-CoV-2 RNA (NERI) (NEGATIVE) 10/16/20 10/16/20 10/16/20 Range/Units 18:10 18:10 18:40 WBC (4.0-11.0) K/uL RBC (4.50-5.90) M/uL Hgb (13.0-17.0) g/dL Hct (38.0-50.0) % MCV (80.0-98.0) fL MCH (27.0-32.0) pg MCHC (31.0-37.0) g/dL Plt Count (150-400) K/uL MPV (7.40-12.00) fL Add Manual Diff Neutrophils % (Manual) (48.0-80.0) % Band Neutrophils % % Lymphocytes % (Manual) (16.0-40.0) % Monocytes % (Manual) (0.0-15.0) % Metamyelocytes % % Nucleated RBC % /100WBC Absolute Seg Neuts (1.4-5.7) Band Neutrophils # Lymphocytes # (Manual) (0.6-2.4) Monocytes # (Manual) (0.0-0.8) Absolute Metamyelocyte Nucleated RBCs # K/uL Poikilocytosis Anisocytosis Lactate (0.20-2.00) mmol/L Sodium 137 (136-148) mmol/L Potassium 3.2 L (3.5-5.1) mmol/L Chloride 101 (98-107) mmol/L Carbon Dioxide 27.0 (21.0-32.0) mmol/L BUN 11 (7.0-18.0) mg/dL Creatinine 1.0 (0.8-1.3) mg/dL Est Cr Clr Drug Dosing TNP Estimated GFR (MDRD) > 60.0 ml/min Glucose 112 H (74-106) mg/dL Calcium 8.9 (8.5-10.1) mg/dL Magnesium 1.7 L (1.8-2.4) mg/dL Total Bilirubin 0.4 (0.2-1.0) mg/dL AST 10 L (15-37) IU/L ALT 17 (14-63) IU/L Alkaline Phosphatase 79 (46-116) U/L Total Protein 7.1 (6.4-8.2) g/dL Albumin 3.3 L (3.4-5.0) g/dL Globulin 3.8 (2.6-4.0) g/dL Albumin/Globulin Ratio 0.9 (0.9-1.6) Urine Color Urine Appearance Urine pH (5.0-8.0) Ur Specific [place] (1.001-1.035) Urine Protein (NEGATIVE) mg/dL Urine Glucose (UA) (NEGATIVE) mg/dL Urine Ketones (NEGATIVE) mg/dL Urine Occult Blood (NEGATIVE) Urine Nitrite (NEGATIVE) Urine Bilirubin (NEGATIVE) Urine Urobilinogen (<2.0) EU/dL Ur Leukocyte Esterase (NEGATIVE) Urine RBC (0-2/HPF) Urine WBC (0-5/HPF) Ur Epithelial Cells (NONE-FEW) Urine Bacteria (NEGATIVE) Influenza Type A RNA NEGATIVE (NEGATIVE) Influenza Type B RNA NEGATIVE (NEGATIVE) SARS-CoV-2 RNA (NERI) NEGATIVE (NEGATIVE) Result Diagrams: 10/17/20 12:40 10/17/20 12:40 Sepsis Event Note - Evaluation Sepsis Screening Result: No Definite Risk - Focused Exam Vital Signs: Vital Signs Temp Pulse Resp BP Pulse Ox 10/17/20 07:58 97.8 F 94 17 110/65 92 L 10/17/20 04:00 98.0 F 62 18 102/53 L 96 - Problem List & Annotations (1) Pneumonia SNOMED Code(s): 126858496 Code(s): J18.9 - PNEUMONIA, UNSPECIFIED ORGANISM Status: Acute Current Visit: Yes (2) COPD (chronic obstructive pulmonary disease) SNOMED Code(s): 65109273 Code(s): J44.9 - CHRONIC OBSTRUCTIVE PULMONARY DISEASE, UNSPECIFIED Status: Acute Current Visit: No Qualifiers: COPD type: COPD with acute exacerbation Qualified Code(s): J44.1 - Chronic obstructive pulmonary disease with (acute) exacerbation (3) Chronic anemia SNOMED Code(s): 404746160 Code(s): D64.9 - ANEMIA, UNSPECIFIED Status: Acute Current Visit: No (4) Immunocompromised patient SNOMED Code(s): 667808656 Code(s): D84.9 - IMMUNODEFICIENCY, UNSPECIFIED Status: Acute Current Visit: No (5) 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 SNOMED Code(s): 301698760 Code(s): D75.89 - OTHER SPECIFIED DISEASES OF BLOOD AND BLOOD-FORMING ORGANS Status: Chronic Current Visit: No - Problem List Review Problem List Initiated/Reviewed/Updated: Yes - My Orders Last 24 Hours: My Active Orders 10/17/20 10:12 BASIC METABOLIC PANEL,BMP [CHEM] Routine CBC WITH AUTO DIFF [HEME] Routine - Plan Plan:: Community acquired pneumonia vs hypersensitivity pneumonitis- IV Rocephin and azithromycin. Monitor o2 saturations, oxygen PRN, Duoneb PRN Myelodysplastic Syndrome- Chemotherapy held while admitted. norco for pain
[2020-10-17 13:21] LABS: BLOOD UREA NITROGEN,BUN 13 mg/dL (7.0-18.0); CARBON DIOXIDE,CO2 24.6 mmol/L (21.0-32.0); CHLORIDE,CL 106 mmol/L (98-107); GLUCOSE RANDOM 104 mg/dL (74-106); SODIUM,NA 139 mmol/L (136-148)
[2020-10-17] MEDS ORDERED: Albuterol/Ipratropium 3.0-0.5 MG/3 ML Neb Soln NEB PRN (14:54)
[2020-10-17] MEDS ORDERED: Enoxaparin 40 MG/0.4 ML Syringe SUBCUT SCH (19:15)
[2020-10-17] MEDS ORDERED: Azithromycin 500 MG in Sodium Chloride 0.9% 250 ML IV SCH (20:30)
[2020-10-17] MEDS ORDERED: cefTRIAXone 1 GM in Sodium Chloride 0.9% 50 ML IV SCH (20:30)
[2020-10-18] MEDS: Acetaminophen/oxyCODONE 325-10 MG Tab PO PRN (03:48)
[2020-10-18] MEDS: Omeprazole 20 MG Cap.CR PO SCH (06:30)
[2020-10-18 06:54] LABS: BLOOD UREA NITROGEN,BUN 11 mg/dL (7.0-18.0); CARBON DIOXIDE,CO2 26.1 mmol/L (21.0-32.0); CHLORIDE,CL 106 mmol/L (98-107); GLUCOSE RANDOM 96 mg/dL (74-106); POTASSIUM,K 3.8 mmol/L (3.5-5.1); SODIUM,NA 139 mmol/L (136-148)
[2020-10-18] MEDS: Tamsulosin 0.4 MG Cap.ER PO SCH (08:11)
[2020-10-18] MEDS: atorvaSTATin 20 MG Tab PO SCH (08:11)
[2020-10-18] MEDS: Folic Acid 1 MG Tab PO SCH (08:12)
[2020-10-18] MEDS: TIOTROPIUM BR INH SCH (08:45)
[2020-10-18] MEDS: OLODATEROL HCL INH SCH (08:45)
--- NOTE | 2020-10-18 11:42 | PCM.DCSUM1 ---
Discharge Summary - Hospital Course Free Text/Narrative:: 75 yo male admitted for hypersensitivity pneumonitis. Patient has a past medical history to include myelodysplastic syndrome and COPD. Patient presented to the ED with several day history of cough and fatigue. 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 In the ED he was noted to be tachycardic with HR in 120s, and requiring 2 L NC to keep sats above 90%. CXR showed patchy opacities in left lateral costophrenic angle. Patient's hemoglobin on admission was 7.7, repeat CBC showed hemoglobin 7.1. Patient was given 1 unit PRBC which increased hemoglobin to 8.1 prior to discharge. Patient started on IV Rocephin and azithromycin. Patient's chemotherapy which was scheduled on admission day was held, patient to follow-up with oncologist for further therapy recommendations. Patient discharged home p.o. azithromycin. - Discharge Data Discharge Date: 10/18/20 Discharge Disposition: Home, Self-Care 01 Condition: Stable - Referral to Home Health Primary Care Physician: Hudson Enriquez MD - Discharge Diagnosis/Problem(s) (1) Pneumonia SNOMED Code(s): 835859783 ICD Code: J18.9 - PNEUMONIA, UNSPECIFIED ORGANISM Status: Acute (2) COPD (chronic obstructive pulmonary disease) SNOMED Code(s): 56203091 ICD Code: J44.9 - CHRONIC OBSTRUCTIVE PULMONARY DISEASE, UNSPECIFIED Status: Acute Qualifiers: COPD type: COPD with acute exacerbation Qualified Code(s): J44.1 - Chronic obstructive pulmonary disease with (acute) exacerbation (3) Chronic anemia SNOMED Code(s): 130492334 ICD Code: D64.9 - ANEMIA, UNSPECIFIED Status: Acute (4) Immunocompromised patient SNOMED Code(s): 424445513 ICD Code: D84.9 - IMMUNODEFICIENCY, UNSPECIFIED Status: Acute (5) 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 SNOMED Code(s): 983607826 ICD Code: D75.89 - OTHER SPECIFIED DISEASES OF BLOOD AND BLOOD-FORMING ORGANS Status: Chronic - Patient Instructions Diet: Usual Diet as Tolerated Activity: As Tolerated Notify Provider of: Fever, Increased Pain - Discharge Plan Prescriptions/Med Rec: Azithromycin 250 mg PO DAILY 4 Days #4 tablet Home Medications: Home Meds Folic Acid 1 mg PO DAILY 04/04/14 [History] Tamsulosin [Flomax] 0.4 mg PO DAILY 10/12/16 [History] Esomeprazole Magnesium [Nexium] 40 mg PO ACBREAKFAST 11/25/18 [History] Calcium Carbonate [Calcium] 1,200 mg PO ACDINNER 12/14/19 [History] Albuterol [Proventil HFA] 1 puff INH TID PRN 05/26/20 [History] Ascorbic Acid [Vitamin C] 500 mg PO TID 05/26/20 [History] Cetirizine [ZyrTEC] 10 mg PO DAILY PRN 05/26/20 [History] Cyclobenzaprine [Flexeril] 5 mg PO TID PRN 05/26/20 [History] Ondansetron [Zofran] 8 mg PO DAILY PRN 05/26/20 [History] Prochlorperazine [Compazine] 10 mg PO Q4HR PRN 05/26/20 [History] Tiotropium BR/Olodaterol HCL [Stiolto Respimat] 2 puff INH DAILY 05/26/20 [History] atorvaSTATin [Lipitor] 20 mg PO DAILY 05/27/20 [History] Acetaminophen/oxyCODONE [Percocet 325-10 MG] 1 tab PO Q4H PRN tablet 05/28/20 [Rx] Docusate Sodium/Sennosides [Senna Plus] 2 tab PO BEDTIME tablet 05/28/20 [Rx] Azithromycin 250 mg PO DAILY 4 Days #4 tablet 10/18/20 [Rx] Patient Handouts: Chronic Obstructive Pulmonary Disease, [id number], Azithromycin tablets, Community-Acquired Pneumonia, Adult, [id number] Referrals: Hudson Enriquez MD [Primary Care Provider] - 10/27/20 8:30 am - Discharge Summary/Plan Comment DC Time >30 min.: Yes - General Info Date of Service: 10/18/20 Subjective Update: Patient states that he feels much better overnight after blood transfusion. Patient denies fever, chills, nausea, vomiting, chest pain, shortness of breath, dizziness, lightheadedness, headaches. - Review of Systems General: Denies: Fever, Chills Pulmonary: Denies: Shortness of Breath, Cough Cardiovascular: Denies: Chest Pain, Palpitations Gastrointestinal: Denies: Abdominal Pain Neurological: Denies: Confusion, Dizziness Psychiatric: Denies: Confusion - Patient Data Vitals - Most Recent: Last Vital Signs Temp 98.9 F 10/18/20 08:10 Pulse 78 10/18/20 08:10 Resp 18 10/18/20 08:10 BP 125/66 10/18/20 08:10 Pulse Ox 94 L 10/18/20 08:10 Weight - Most Recent: 139 lb 3.2 oz I&O - Last 24 hours: Intake & Output 10/17/20 10/18/20 10/18/20 22:59 06:59 14:59 Intake Total 817 817 50 Output Total 0 Balance 817 817 50 Lab Results - Last 24 hrs: Laboratory Results - last 24 hr 10/17/20 10/17/20 10/17/20 Range/Units 12:40 12:40 19:32 WBC 2.44 L (4.0-11.0) K/uL RBC 1.95 L (4.50-5.90) M/uL Hgb 7.1 L (13.0-17.0) g/dL Hct 21.3 L (38.0-50.0) % MCV 109.2 H (80.0-98.0) fL MCH 36.4 H (27.0-32.0) pg MCHC 33.3 (31.0-37.0) g/dL Plt Count 201 (150-400) K/uL MPV 9.70 (7.40-12.00) fL Add Manual Diff YES Neutrophils % (Manual) 53 (48.0-80.0) % Band Neutrophils % 4 % Lymphocytes % (Manual) 31 (16.0-40.0) % Monocytes % (Manual) 9 (0.0-15.0) % Eosinophils % (Manual) 1 (0.0-7.0) % Basophils % (Manual) 1 (0.0-1.5) % Metamyelocytes % 1 % Myelocytes % % Nucleated RBC % 0.0 /100WBC Absolute Seg Neuts 1.3 L (1.4-5.7) Band Neutrophils # 0.1 Lymphocytes # (Manual) 0.8 (0.6-2.4) Monocytes # (Manual) 0.2 (0.0-0.8) Eosinophils # (Manual) 0.0 (0.0-0.7) Basophils # (Manual) 0.0 (0.0-0.1) Absolute Metamyelocyte 0 Absolute Myelocytes Nucleated RBCs # 0 K/uL Poikilocytosis 1+ SLIGHT Anisocytosis 1+ SLIGHT Macrocytosis Sodium 139 (136-148) mmol/L Potassium 4.0 (3.5-5.1) mmol/L Chloride 106 (98-107) mmol/L Carbon Dioxide 24.6 (21.0-32.0) mmol/L BUN 13 (7.0-18.0) mg/dL Creatinine 0.8 (0.8-1.3) mg/dL Est Cr Clr Drug Dosing 71.25 mL/min Estimated GFR (MDRD) > 60.0 ml/min Glucose 104 (74-106) mg/dL Calcium 7.9 L (8.5-10.1) mg/dL Magnesium (1.8-2.4) mg/dL Total Bilirubin (0.2-1.0) mg/dL AST (15-37) IU/L ALT (14-63) IU/L Alkaline Phosphatase (46-116) U/L Total Protein (6.4-8.2) g/dL Albumin (3.4-5.0) g/dL Globulin (2.6-4.0) g/dL Albumin/Globulin Ratio (0.9-1.6) Blood Type O NEGATIVE Antibody Screen NEGATIVE Crossmatch See Detail 10/18/20 10/18/20 10/18/20 Range/Units 06:15 06:15 06:15 WBC 2.19 L (4.0-11.0) K/uL RBC 2.26 L (4.50-5.90) M/uL Hgb 8.1 L (13.0-17.0) g/dL Hct 23.8 L (38.0-50.0) % MCV 105.3 H (80.0-98.0) fL MCH 35.8 H (27.0-32.0) pg MCHC 34.0 (31.0-37.0) g/dL Plt Count 187 (150-400) K/uL MPV 9.50 (7.40-12.00) fL Add Manual Diff YES Neutrophils % (Manual) 50 (48.0-80.0) % Band Neutrophils % 2 % Lymphocytes % (Manual) 29 (16.0-40.0) % Monocytes % (Manual) 8 (0.0-15.0) % Eosinophils % (Manual) 5 (0.0-7.0) % Basophils % (Manual) 1 (0.0-1.5) % Metamyelocytes % 2 % Myelocytes % 3 % Nucleated RBC % 0.0 /100WBC Absolute Seg Neuts 1.1 L (1.4-5.7) Band Neutrophils # 0 Lymphocytes # (Manual) 0.6 (0.6-2.4) Monocytes # (Manual) 0.2 (0.0-0.8) Eosinophils # (Manual) 0.1 (0.0-0.7) Basophils # (Manual) 0.0 (0.0-0.1) Absolute Metamyelocyte 0 Absolute Myelocytes 0.1 Nucleated RBCs # 0 K/uL Poikilocytosis Anisocytosis 2+ MODERATE Macrocytosis 2+ MODERATE Sodium 139 (136-148) mmol/L Potassium 3.8 (3.5-5.1) mmol/L Chloride 106 (98-107) mmol/L Carbon Dioxide 26.1 (21.0-32.0) mmol/L BUN 11 (7.0-18.0) mg/dL Creatinine 0.9 (0.8-1.3) mg/dL Est Cr Clr Drug Dosing 63.33 mL/min Estimated GFR (MDRD) > 60.0 ml/min Glucose 96 (74-106) mg/dL Calcium 8.0 L (8.5-10.1) mg/dL Magnesium 1.8 (1.8-2.4) mg/dL Total Bilirubin 0.4 (0.2-1.0) mg/dL AST 8 L (15-37) IU/L ALT 17 (14-63) IU/L Alkaline Phosphatase 61 (46-116) U/L Total Protein 6.1 L (6.4-8.2) g/dL Albumin 2.6 L (3.4-5.0) g/dL Globulin 3.5 (2.6-4.0) g/dL Albumin/Globulin Ratio 0.7 L (0.9-1.6) Blood Type Antibody Screen Crossmatch FRIEDA Results - Last 24 hrs: Microbiology 10/16/20 16:30 Urine Culture - Final Urine, Clean Catch No Growth 10/16/20 18:13 Aerobic Blood Culture - Preliminary Blood - Venous - Lab Draw NO GROWTH AFTER 1 DAY Anaerobic Blood Culture - Preliminary NO GROWTH AFTER 1 DAY 10/16/20 18:10 Aerobic Blood Culture - Preliminary Blood - Venous NO GROWTH AFTER 1 DAY Anaerobic Blood Culture - Preliminary NO GROWTH AFTER 1 DAY Med Orders - Current: Current Medications Albuterol/Ipratropium (Albuterol/Ipratropium 3.0-0.5 Mg/3 Ml Neb Soln) 3 ml NEB Q4HRRT PRN PRN Reason: Dyspnea Atorvastatin Calcium (Atorvastatin 20 Mg Tab) 20 mg PO DAILY [facility] Last Admin: 10/18/20 08:11 Dose: 20 mg Documented by: Cyclobenzaprine HCl (Cyclobenzaprine 5 Mg Tab) 5 mg PO TID PRN PRN Reason: Spasms Enoxaparin Sodium (Enoxaparin 40 Mg/0.4 Ml Syringe) 40 mg SUBCUT Q24H [facility] Last Admin: 10/17/20 19:44 Dose: 40 mg Documented by: Folic Acid (Folic Acid 1 Mg Tab) 1 mg PO DAILY [facility] Last Admin: 10/18/20 08:12 Dose: 1 mg Documented by: Azithromycin 500 mg/ Sodium (Chloride) 250 mls @ 250 mls/hr IV Q24H [facility] Last Admin: 10/17/20 20:43 Dose: 250 mls/hr Documented by: Ceftriaxone Sodium/Dextrose (Rocephin In Dextrose,Iso-Osm 1 Gm/50 Ml) 50 mls @ 100 mls/hr IV Q12H [facility] Last Admin: 10/18/20 08:38 Dose: 100 mls/hr Documented by: Tiotropium Br/Olodaterol Hcl 4 Gm Inhaler 2 puff INH DAILY [facility] Last Admin: 10/18/20 08:45 Dose: Not Given Documented by: Omeprazole (Omeprazole 20 Mg Cap.Cr) 20 mg PO ACBREAKFAST [facility] Last Admin: 10/18/20 06:30 Dose: 20 mg Documented by: Oxycodone/Acetaminophen (Acetaminophen/Oxycodone 325-10 Mg Tab) 1 tab PO Q4H PRN PRN Reason: Pain (moderate 4-6) Last Admin: 10/18/20 03:48 Dose: 1 tab Documented by: Senna/Docusate Sodium (Docusate Sodium/Sennosides 50-8.6 Mg Tab) 2 tab PO BEDTIME [facility] Last Admin: 10/17/20 20:58 Dose: 2 tab Documented by: Sodium Chloride (Sodium Chloride 0.9% 10 Ml Syringe) 10 ml FLUSH ASDIRECTED PRN PRN Reason: Keep Vein Open Last Admin: 10/16/20 18:29 Dose: 10 ml Documented by: Sodium Chloride (Sodium Chloride 0.9% 2.5 Ml Syringe) 2.5 ml FLUSH ASDIRECTED PRN PRN Reason: Keep Vein Open Last Admin: 10/16/20 18:29 Dose: 2.5 ml Documented by: Tamsulosin HCl (Tamsulosin 0.4 Mg Cap.Er) 0.4 mg PO DAILY [facility] Last Admin: 10/18/20 08:11 Dose: 0.4 mg Documented by: Discontinued Medications Acetaminophen (Acetaminophen 500 Mg Tab) 1,000 mg PO ONETIME ONE Stop: 10/16/20 18:04 Last Admin: 10/16/20 18:29 Dose: 1,000 mg Documented by: Azithromycin (Azithromycin 250 Mg Tab) 500 mg PO ONETIME STA Stop: 10/16/20 19:58 Last Admin: 10/16/20 20:25 Dose: 500 mg Documented by: Sodium Chloride (Normal Saline) 1,000 mls @ 1,000 mls/hr IV .Bolus ONE Stop: 10/16/20 19:05 Last Admin: 10/16/20 18:29 Dose: 1,000 mls/hr Documented by: Sodium Chloride (Normal Saline) 1,000 mls @ 1,000 mls/hr IV .Bolus ONE Stop: 10/16/20 19:08 Last Admin: 10/16/20 18:29 Dose: 1,000 mls/hr Documented by: Ceftriaxone Sodium/Dextrose 2 (gm/ Premix) 50 mls @ 100 mls/hr IV ONETIME ONE Stop: 10/16/20 20:25 Last Admin: 10/16/20 20:26 Dose: 100 mls/hr Documented by: Oxycodone/Acetaminophen (Acetaminophen/Oxycodone 325-10 Mg Tab) 1 tab PO ONETIME ONE Stop: 04/01/21 18:34 Last Admin: 10/16/20 18:38 Dose: 1 tab Documented by: Potassium Chloride (Potassium Chloride 20 Meq Tab.Er) 40 meq PO ONETIME ONE Stop: 10/17/20 08:07 Last Admin: 10/17/20 09:17 Dose: 40 meq Documented by: - Exam General: Reports: Alert, Oriented Lungs: Reports: Clear to Auscultation, Normal Respiratory Effort Cardiovascular: Reports: Regular Rate, Regular Rhythm GI/Abdominal Exam: Normal Bowel Sounds, Soft, Non-Tender Extremities: No Pedal Edema Psy/Mental Status: Reports: Alert
[2020-10-18 13:12] VITALS: BP 155/95; PULSE 94
== END 2020-10-18 13:10 | disposition home or self-care (01) | DRG 197 ==
LOC: MW.ED 17:36 → MW.MS 20:12
PROVIDERS: ADMIT Internal Medicine; ATTEND Internal Medicine
DX: J18.9 Pneumonia, unspecified organism (principal); R09.02 Hypoxemia; Z79.899 Other long term (current) drug therapy; H91.90 Unspecified hearing loss, unspecified ear; H54.7 Unspecified visual loss; E78.00 Pure hypercholesterolemia, unspecified; D46.9 Myelodysplastic syndrome, unspecified; J44.9 Chronic obstructive pulmonary disease, unspecified; J67.9 Hypersensitivity pneumonitis due to unspecified organic dust; Z87.891 Personal history of nicotine dependence; Z20.822 Contact with and (suspected) exposure to COVID-19; J44.1 Chronic obstructive pulmonary disease with (acute) exacerbation; D84.9 Immunodeficiency, unspecified; D46.4 Refractory anemia, unspecified; E78.5 Hyperlipidemia, unspecified; K21.9 Gastro-esophageal reflux disease without esophagitis; F32.9 Major depressive disorder, single episode, unspecified; Z98.42 Cataract extraction status, left eye; Z98.41 Cataract extraction status, right eye
CPT/HCPCS: 0240U; 36415; 36430; 71045; 80048; 80053; 81001; 83605; 83735; 85025; 86850; 86900; 86901; 86920; 86921; 86922; 87040; 87086; 99284; A9270-GY; J0456; J0696; J1650; J7030; J7050; P9016

== ENCOUNTER 2021-06-22 07:20 | Day surgery (SDC) | payer MEDICARE, MEDICAID ==
[~2021-06-22 07:20] MED LIST: Lactated Ringers 1,000 ML IV SCH; ceFAZolin 2 GM in Premix Bag 1 BAG IV ONE
[2021-06-22] MEDS ORDERED: Propofol 200 MG/20 ML SDV ONE (07:49)
[2021-06-22] MEDS ORDERED: Midazolam 1 MG/ML 2 ML SDV ONE (07:49)
[2021-06-22] MEDS ORDERED: fentaNYL 100 MCG/2 ML SDV ONE (07:49)
[2021-06-22] MEDS ORDERED: Naloxone 0.4 MG/ML SDV IVPUSH PRN (08:20)
[2021-06-22] MEDS ORDERED: Ondansetron 4 MG/2 ML SDV IVPUSH PRN (08:20)
[2021-06-22] MEDS ORDERED: HYDROmorphone 1 MG/ML Syringe IVPUSH PRN (08:20)
[2021-06-22] MEDS ORDERED: fentaNYL 100 MCG/2 ML SDV IVPUSH PRN (08:20)
[2021-06-22] MEDS ORDERED: Albuterol 0.083% 2.5 MG/3 ML Neb Soln NEB PRN (08:20)
[2021-06-22] MEDS ORDERED: Metoclopramide 10 MG/2 ML SDV IVPUSH PRN (08:20)
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
[2021-06-22] MEDS ORDERED: Water For Injection, Sterile 20 ML ONE (08:43)
[2021-06-22] MEDS ORDERED: ceFAZolin 1 GM Vial ONE (08:43)
[2021-06-22] MEDS ORDERED: Bupivacaine 0.5% 10 ML SDV ONE (09:18)
[2021-06-22] MEDS ORDERED: Heparin Sodium 100 Units/ML 3 ML Syringe ONE (09:19)
--- NOTE | 2021-06-22 11:25 | PCM.POSTAN ---
POST ANESTHESIA ASSESSMENT - MENTAL STATUS Mental Status: Alert, Oriented - VITAL SIGNS Vital Signs: Last Vital Signs Temp 96.4 F L 06/22/21 07:53 Pulse 88 06/22/21 07:53 Resp 14 06/22/21 07:53 BP 106/63 06/22/21 07:53 Pulse Ox 93 L 06/22/21 07:53 - RESPIRATORY Respiratory Status: Respiratory Rate WNL, Airway Patent, O2 Saturation Stable - CARDIOVASCULAR CV Status: Pulse Rate WNL, Blood Pressure Stable - GASTROINTESTINAL GI Status: No Symptoms - PAIN Pain Score: 0 - POST OP HYDRATION Hydration Status: Adequate & Stable
--- NOTE | 2021-06-22 11:29 | PCM48HPAN ---
Post Anesthesia Note - EVALUATION WITHIN 48HRS OF ANESTHETIC Vital Signs in Normal Range: Yes Patient Participated in Evaluation: Yes Respiratory Function Stable: Yes Airway Patent: Yes Cardiovascular Function Stable: Yes Hydration Status Stable: Yes Pain Control Satisfactory: Yes Nausea and Vomiting Control Satisfactory: Yes Mental Status Recovered: Yes Vital Signs: Last Vital Signs Temp 97.2 F 06/22/21 11:15 Pulse 91 06/22/21 11:25 Resp 14 06/22/21 11:25 BP 124/66 06/22/21 11:25 Pulse Ox 95 06/22/21 11:25 - COMMENTS/OBSERVATIONS Free Text/Narrative:: Pt doing well post-op. VSS. No apparent anesthetic complications. Dr. Everett Valdes
--- NOTE | 2021-06-22 11:31 | PCM.OPNOTE ---
- General Post-Op/Procedure Note Date of Surgery/Procedure: 06/22/21 Operative Procedure(s): Placement of chemotherapy port via left cephalic vein to left subclavian vein approach Pre Op Diagnosis: Myelodysplastic syndrome. Anemia. Post-Op Diagnosis: Same Anesthesia Technique: General LMA (ASA III) Primary Surgeon: Chaim Cruz Fluid Replacement, Intraop: 1,200 EBL in mLs: 5 Condition: Good Free Text/Narrative:: Intake & Output 06/21/21 06/22/21 06/22/21 19:59 03:59 11:59 Intake Total 1500 Balance 1500 DICTATION [id number] CPT CODE 02353
--- NOTE | 2021-06-22 11:49 | CR ---
INDICATION: Port-A-Cath placement. COMPARISON: Chest radiograph October 16, 2020. TECHNIQUE: Portable AP chest. FINDINGS: Port-A-Cath with the tip at the cavoatrial junction. No pneumothorax or pleural effusion. IMPRESSION: Port-A-Cath in place. Dictated by Veronique Rosas MD @ 06/22/2021 11:48:58 AM (Electronically Signed)
[2021-06-22 12:18] VITALS: BP 132/72; PULSE 76
--- NOTE | 2021-06-22 17:56 | CR ---
Indication: Port-A-Cath. Technique: Fluoroscopy provided during Port-A-Cath placement. 6.9 seconds fluoro time. 1 image. Comparison: Chest radiograph 10/16/2020. Findings/Impression : Fluoroscopic spot image demonstrates placement of a left subclavian Port-A-Cath. Dictated by Cristal Aguiar MD @ 06/22/2021 5:54:41 PM (Electronically Signed)
--- NOTE | 2021-06-23 09:13 | OR ---
SURGEON: Chaim Cruz M.D. DATE OF PROCEDURE: 06/22/2021 OPERATION PERFORMED: Placement of Bard port via left cephalic vein approach. PRIMARY SURGEON: Chaim Cruz M.D. ANESTHESIA: General LMA. ASA CLASSIFICATION: III. PREOPERATIVE DIAGNOSIS: Myelodysplastic syndrome with anemia and need for frequent blood draws and chemotherapy. POSTOPERATIVE DIAGNOSIS: Myelodysplastic syndrome with anemia and need for frequent blood draws and chemotherapy. ESTIMATED BLOOD LOSS: 5 mL. INTRAOPERATIVE FLUID REPLACEMENT: 1200 mL of crystalloid. DESCRIPTION OF PROCEDURE: The patient was taken to the operating room and placed on the operating table in the supine position. Time-out was called for appropriate identification of patient and procedure. The surgical site had been marked prior to the patient entering the operating room. Thigh-high TEDs and sequential compression boots were placed. Following satisfactory attainment of general anesthesia with placement of an LMA, the left chest was prepped with DuraPrep solution and sterile drapes were applied. The left deltopectoral groove was marked out and infiltrated with 0.5% Marcaine solution. Skin incision was made and deepened through the subcutaneous tissue obtaining hemostasis with the use of electrocautery. Dissection was carried down to the left deltopectoral groove and the cephalic vein was able to be identified. This was of small caliber. The vein was infiltrated with 1% plain Xylocaine. The vein was tied distally, and a small venotomy was made. With minimal difficulty, I was able to pass the heparin-flushed catheter through the cephalic vein and position it under fluoroscopy in the superior vena cava. There was good return of blood. The catheter was then secured proximally with 3-0 Vicryl ties x2. Wound was inspected for hemostasis and small bleeding sites were electrocoagulated. Appropriate site for the port placement on the anterior chest wall was identified. Again, the skin was infiltrated with 0.5% Marcaine solution. Skin incision was made and with the use of electrocautery, deepened down to the pectoralis major fascia. Bleeding sites were electrocoagulated. The catheter was then clamped in the deltopectoral incision and a tunneler passed through the subcutaneous tissue and connected to the catheter and pulled into the chest wall incision. Care was taken to keep the catheter occluded to avoid any air embolus. With the catheter clamped, the heparin-flushed port was brought to the operating table. The catheter was cut to appropriate length and the catheter and port were assembled and the hub placed over this to secure it. There was good return of blood in the port and the port flushed easily with heparinized saline. With that accomplished, the port was secured to the underlying chest wall with interrupted 2-0 silk sutures. Both incisions were closed in two layers approximating the subcutaneous tissue with 3-0 Vicryl and the skin with subcuticular 4-0 Monocryl. The Haywood needle and infusion set were flushed with saline and the port was then accessed. There was easy return of blood and the port flushed easily. Steri-Strips were then placed over the deltopectoral incision. A 2 x 2 was placed over the Haywood needle and a large Tegaderm pad was placed over this. The deltopectoral incision was dressed with a large Tegaderm pad. Sponge, needle, and instrument counts were all correct. The patient tolerated the procedure well and following emergence from anesthesia and extubation, was taken to recovery room in satisfactory condition. TOMÁS RAUSCH /[id number]
== END 2021-06-22 12:14 | disposition home or self-care (01) ==
LOC: MW.SDS 07:20
PROVIDERS: ATTEND Surgery
DX: D46.9 Myelodysplastic syndrome, unspecified (principal); M10.9 Gout, unspecified; E78.00 Pure hypercholesterolemia, unspecified; M79.18 Myalgia, other site; Z79.899 Other long term (current) drug therapy; Z98.890 Other specified postprocedural states; Z87.891 Personal history of nicotine dependence
CPT/HCPCS: 36561; 71045; 76000; C1776; J0690; J1642; J2250; J2370; J2704; J3490; J7120; 00532; J3010

== ENCOUNTER 2022-03-18 19:31 | Inpatient (IN) | payer OTHER, MEDICARE, MEDICAID ==
[2022-03-18] MEDS ORDERED: Lidocaine/Epineph/Tetracaine 3 ML Syringe TOP ONE (19:45)
[2022-03-18] MEDS ORDERED: Lactated Ringers 1,000 ML IV STA ×2 (20:06→22:25)
[2022-03-18] MEDS ORDERED: Albuterol/Ipratropium 3.0-0.5 MG/3 ML Neb Soln NEB ONE (20:07)
[2022-03-18 20:41] LABS: CARBON DIOXIDE,CO2 25.2 mmol/L (21.0-32.0); POTASSIUM,K 3.2 mmol/L (3.5-5.1)
[2022-03-18] MEDS ORDERED: Piperacillin/Tazobactam 4.5 GM in Sodium Chloride 0.9% 100 ML IV STA (21:25)
[2022-03-18] MEDS ORDERED: Iopamidol 755 MG/ML 500 ML Multipack Bottle IVPUSH STA (22:19)
[2022-03-19] MEDS ORDERED: Lactated Ringers 1,000 ML IV SCH ×2 (02:15→03:30)
[2022-03-19] MEDS ORDERED: Albuterol/Ipratropium 3.0-0.5 MG/3 ML Neb Soln NEB PRN (02:16)
[2022-03-19] MEDS ORDERED: Acetaminophen 325 MG Tab PO PRN (02:17)
[2022-03-19] MEDS: Piperacillin/Tazobactam 3.375 GM in Sodium Chloride 0.9% 50 ML IV SCH ×3 (05:06→22:51)
[2022-03-19] MEDS ORDERED: Magnesium Sulfate/Water 2 GM in Premix Bag 1 BAG IV ONE (07:10)
[2022-03-19] MEDS ORDERED: Potassium Chloride 100 ML IV SCH (07:30)
[2022-03-19] MEDS ORDERED: NS with KCl 40mEq 1,000 ML IV ONE (08:15)
[2022-03-19] MEDS ORDERED: Lidocaine 2% 30 ML, Alum Hydro/Mag Hydro/Simeth XS 30 ML, diphenhydrAMINE 75 MG PO PRN ×3 (08:29)
[2022-03-19] MEDS: Enoxaparin 40 MG/0.4 ML Syringe SUBCUT SCH (08:38)
[2022-03-19] MEDS: Acetaminophen/oxyCODONE 325-10 MG Tab PO PRN ×3 (08:52→22:49)
[2022-03-19] MEDS ORDERED: Azithromycin 500 MG in Sodium Chloride 0.9% 250 ML IV SCH (09:30)
[2022-03-19] MEDS ORDERED: SODIUM CHLORIDE 0.9% IV SCH (10:00)
[2022-03-19] MEDS ORDERED: ACYCLOVIR IV SCH (10:00)
[2022-03-19] MEDS: Pantoprazole 40 MG in Sodium Chloride 0.9% 10 ML IVPUSH SCH (11:17)
[2022-03-19] MEDS: Tamsulosin 0.4 MG Cap.ER PO SCH (11:18)
[2022-03-19] MEDS: Cyclobenzaprine 5 MG Tab PO PRN ×2 (11:18→19:23)
[2022-03-19] MEDS: atorvaSTATin 20 MG Tab PO SCH (21:04)
[2022-03-20] MEDS: Cyclobenzaprine 5 MG Tab PO PRN ×2 (04:27→19:29)
[2022-03-20] MEDS: Acetaminophen/oxyCODONE 325-10 MG Tab PO PRN ×4 (05:01→23:07)
[2022-03-20] MEDS: Piperacillin/Tazobactam 3.375 GM in Sodium Chloride 0.9% 50 ML IV SCH ×3 (06:00→21:21)
[2022-03-20 06:35] LABS: CARBON DIOXIDE,CO2 25.9 mmol/L (21.0-32.0); POTASSIUM,K 3.2 mmol/L (3.5-5.1)
[2022-03-20] MEDS: Pantoprazole 40 MG in Sodium Chloride 0.9% 10 ML IVPUSH SCH (06:39)
[2022-03-20] MEDS: Folic Acid 1 MG Tab PO SCH (09:11)
[2022-03-20] MEDS: Enoxaparin 40 MG/0.4 ML Syringe SUBCUT SCH (09:12)
[2022-03-20] MEDS: Tamsulosin 0.4 MG Cap.ER PO SCH (09:12)
[2022-03-20] MEDS: NS with KCl 40mEq 1,000 ML IV SCH (09:21)
[2022-03-20] MEDS ORDERED: Magnesium Sulfate/Water 2 GM in Premix Bag 1 BAG IV ONE (10:13)
[2022-03-20] MEDS: Azithromycin 500 MG in Sodium Chloride 0.9% 250 ML IV SCH (10:39)
[2022-03-20] MEDS: [UNRECOGNIZED DRUG - OTHER] TOP PRN (13:38)
[2022-03-20] MEDS: atorvaSTATin 20 MG Tab PO SCH (20:06)
[2022-03-21] MEDS: NS with KCl 40mEq 1,000 ML IV SCH (01:16)
[2022-03-21] MEDS: Acetaminophen/oxyCODONE 325-10 MG Tab PO PRN (05:10)
[2022-03-21] MEDS: Piperacillin/Tazobactam 3.375 GM in Sodium Chloride 0.9% 50 ML IV SCH (05:14)
[2022-03-21 06:08] LABS: CARBON DIOXIDE,CO2 24.1 mmol/L (21.0-32.0); POTASSIUM,K 3.5 mmol/L (3.5-5.1)
[2022-03-21] MEDS: Cyclobenzaprine 5 MG Tab PO PRN (06:13)
[2022-03-21] MEDS: [UNRECOGNIZED DRUG - OTHER] TOP PRN (06:20)
[2022-03-21] MEDS: Pantoprazole 40 MG in Sodium Chloride 0.9% 10 ML IVPUSH SCH (06:37)
[2022-03-21] MEDS: Folic Acid 1 MG Tab PO SCH (08:02)
[2022-03-21] MEDS: Enoxaparin 40 MG/0.4 ML Syringe SUBCUT SCH (08:02)
[2022-03-21] MEDS: Tamsulosin 0.4 MG Cap.ER PO SCH (08:02)
[2022-03-21] MEDS: Azithromycin 500 MG in Sodium Chloride 0.9% 250 ML IV SCH (10:04)
[2022-03-21 11:36] VITALS: BP 145/70; PULSE 70
== END 2022-03-21 12:10 | disposition home or self-care (01) | DRG 871 ==
LOC: MW.ED 19:31 → MW.MS 23:12
PROVIDERS: ADMIT Student in an Organized Health Care Education/Training Program; ATTEND Student in an Organized Health Care Education/Training Program
PROC: 30233N1 Transfusion of Nonautologous Red Blood Cells into Peripheral Vein, Percutaneous Approach (ICD-10-PCS; principal; 2022-03-18)
PROC: 3E03329 Introduction of Other Anti-infective into Peripheral Vein, Percutaneous Approach (ICD-10-PCS; 2022-03-18)
DX: J18.9 Pneumonia, unspecified organism (principal); J96.90 Respiratory failure, unspecified, unspecified whether with hypoxia or hypercapnia; A41.9 Sepsis, unspecified organism; J69.0 Pneumonitis due to inhalation of food and vomit; J44.0 Chronic obstructive pulmonary disease with (acute) lower respiratory infection; N39.0 Urinary tract infection, site not specified; E78.5 Hyperlipidemia, unspecified; Z66 Do not resuscitate; D46.9 Myelodysplastic syndrome, unspecified; J44.9 Chronic obstructive pulmonary disease, unspecified; K21.9 Gastro-esophageal reflux disease without esophagitis; Z20.822 Contact with and (suspected) exposure to COVID-19; F32.A Depression, unspecified; N40.0 Benign prostatic hyperplasia without lower urinary tract symptoms; K59.03 Drug induced constipation; B00.9 Herpesviral infection, unspecified; E87.6 Hypokalemia; E83.42 Hypomagnesemia; K44.9 Diaphragmatic hernia without obstruction or gangrene; H91.90 Unspecified hearing loss, unspecified ear; H54.7 Unspecified visual loss; E78.00 Pure hypercholesterolemia, unspecified; M19.90 Unspecified osteoarthritis, unspecified site; G89.29 Other chronic pain; M54.9 Dorsalgia, unspecified; Z98.49 Cataract extraction status, unspecified eye; Z87.891 Personal history of nicotine dependence; Z79.899 Other long term (current) drug therapy; V89.2XXA Person injured in unspecified motor-vehicle accident, traffic, initial encounter; R31.9 Hematuria, unspecified
CPT/HCPCS: 36415; 70450; 71045; 71275; 80053; 81001; 83605; 83735; 84484; 85025; 85610; 87040 ×2; 93005; A9270; J0133; J2543; J3370; J7050 ×2; J7120 ×2; Q9967; U0002; 36430; 80048; 80202; 84100; 85014; 85018; 86850; 86900; 86901; 86920; C9113; J0456; J1442; J1642; J1650; J3475; J3480; J3490; J7620-GY; P9016

== ENCOUNTER 2022-05-24 11:10 | Inpatient (IN) | payer MEDICARE, MEDICAID ==
[2022-05-24] MEDS ORDERED: Sodium Chloride 0.9% 2.5 ML Syringe FLUSH PRN ×2 (11:37→15:21)
[2022-05-24] MEDS ORDERED: Sodium Chloride 0.9% 1,000 ML IV ONE (11:37)
[2022-05-24] MEDS ORDERED: Sodium Chloride 0.9% 10 ML Syringe FLUSH PRN ×2 (11:37→15:21)
[2022-05-24] MEDS ORDERED: Cefepime 2 GM in Premix Bag 50 BAG IV ONE (11:37)
[2022-05-24] MEDS ORDERED: VANCOmycin 1.5 GM/300 ML 1.5 GM in Premix Bag 1 BAG IV ONE (12:00)
[2022-05-24 12:27] LABS: CARBON DIOXIDE,CO2 25.2 mmol/L (21.0-32.0); POTASSIUM,K 3.5 mmol/L (3.5-5.1)
[2022-05-24 12:41] LABS: CORONAVIRUS COVID-19 NAA NEGATIVE (NEGATIVE); INFLUENZA A NAA NEGATIVE (NEGATIVE); INFLUENZA B NAA NEGATIVE (NEGATIVE)
[2022-05-24] MEDS ORDERED: Albuterol/Ipratropium 3.0-0.5 MG/3 ML Neb Soln NEB PRN (15:21)
[2022-05-24] MEDS ORDERED: Ondansetron 4 MG/2 ML SDV IVPUSH PRN (15:21)
[2022-05-24] MEDS ORDERED: Prochlorperazine 10 MG Tab PO PRN (15:28)
[2022-05-24] MEDS ORDERED: Cyclobenzaprine 5 MG Tab PO PRN (15:28)
[2022-05-24] MEDS: Sodium Chloride 0.9% 1,000 ML IV SCH (15:59)
[2022-05-24] MEDS ORDERED: Sennosides 8.6 MG Tab PO PRN (16:00)
[2022-05-24] MEDS ORDERED: Albuterol 8 GM Inhaler INH PRN (16:05)
[2022-05-24] MEDS: Acetaminophen 325 MG Tab PO PRN ×2 (16:25→23:29)
[2022-05-24] MEDS: oxyCODONE 5 MG Tab PO PRN ×2 (16:31→22:31)
[2022-05-24] MEDS: Acyclovir 200 MG Cap PO SCH (21:45)
[2022-05-24] MEDS: Mirtazapine 15 MG Tab PO SCH (21:45)
[2022-05-24] MEDS: Cefepime 2 GM in Premix Bag 1 BAG IV SCH (22:31)
[2022-05-25] MEDS: Acetaminophen 325 MG Tab PO PRN ×2 (04:10→09:59)
[2022-05-25] MEDS: oxyCODONE 5 MG Tab PO PRN ×3 (05:43→19:17)
[2022-05-25] MEDS: Acyclovir 200 MG Cap PO SCH (05:44)
[2022-05-25] MEDS: Sodium Chloride 0.9% 1,000 ML IV SCH ×2 (05:49→19:16)
[2022-05-25 06:27] LABS: CARBON DIOXIDE,CO2 23.9 mmol/L (21.0-32.0); POTASSIUM,K 3.6 mmol/L (3.5-5.1)
[2022-05-25] MEDS ORDERED: Sodium Chloride 0.9% 500 ML IV SCH (08:15)
[2022-05-25] MEDS: Folic Acid 1 MG Tab PO SCH (08:18)
[2022-05-25] MEDS: Cetirizine 10 MG Tab PO SCH (08:19)
[2022-05-25] MEDS ORDERED: Sodium Chloride 0.9% 1,000 ML IV ONE ×2 (08:20→08:21)
[2022-05-25] MEDS: atorvaSTATin 20 MG Tab PO SCH (08:21)
[2022-05-25] MEDS: ESOMEPRAZOLE MAGNESIUM 40 MG PO SCH (08:23)
[2022-05-25] MEDS: TIOTROPIUM BR INH SCH (08:23)
[2022-05-25] MEDS: OLODATEROL HCL INH SCH (08:23)
[2022-05-25] MEDS ORDERED: Magnesium Sulfate/Water 4 GM in Premix Bag 1 BAG IV ONE (08:30)
[2022-05-25] MEDS: Dronabinol 2.5 MG Cap PO SCH (08:43)
[2022-05-25] MEDS ORDERED: Tamsulosin 0.4 MG Cap.ER PO SCH (09:00)
[2022-05-25] MEDS: Cefepime 2 GM in Premix Bag 1 BAG IV SCH ×2 (11:10→23:13)
[2022-05-25] MEDS: Mirtazapine 15 MG Tab PO SCH (20:35)
[2022-05-25] MEDS ORDERED: Calcium Carbonate 500 MG Tab.Chew PO PRN (21:35)
[2022-05-26] MEDS: oxyCODONE 5 MG Tab PO PRN (04:36)
[2022-05-26 06:24] LABS: CARBON DIOXIDE,CO2 23.6 mmol/L (21.0-32.0); POTASSIUM,K 3.6 mmol/L (3.5-5.1)
[2022-05-26] MEDS: Sodium Chloride 0.9% 1,000 ML IV SCH (07:55)
[2022-05-26] MEDS: Cefepime 2 GM in Premix Bag 1 BAG IV SCH ×3 (07:56→23:49)
[2022-05-26] MEDS: TIOTROPIUM BR INH SCH (07:59)
[2022-05-26] MEDS: OLODATEROL HCL INH SCH (07:59)
[2022-05-26] MEDS: Dronabinol 2.5 MG Cap PO SCH (08:00)
[2022-05-26] MEDS: Cetirizine 10 MG Tab PO SCH (08:00)
[2022-05-26] MEDS: Folic Acid 1 MG Tab PO SCH (08:00)
[2022-05-26] MEDS: atorvaSTATin 20 MG Tab PO SCH (08:00)
[2022-05-26] MEDS: ESOMEPRAZOLE MAGNESIUM 40 MG PO SCH (08:01)
[2022-05-26] MEDS: Tamsulosin 0.4 MG Cap.ER PO SCH (09:33)
[2022-05-26] MEDS: Pantoprazole 40 MG Tab.CR PO SCH (09:33)
[2022-05-26] MEDS: Ascorbic Acid 500 MG Tab PO SCH ×2 (09:33→20:09)
[2022-05-26] MEDS: Acetaminophen 325 MG Tab PO PRN ×2 (09:39→19:19)
[2022-05-26] MEDS: oxyCODONE 5 MG Tab PO SCH ×4 (10:37→23:50)
[2022-05-26] MEDS: Acyclovir 200 MG Cap PO SCH ×4 (13:24→23:49)
[2022-05-26] MEDS: Al and Mag Hydroxide/Diphenhydramine/Lidocaine/Simethicone 237 ML Bottle PO SCH ×3 (13:25→23:50)
[2022-05-26] MEDS: Mirtazapine 15 MG Tab PO SCH (20:09)
[2022-05-27] MEDS: oxyCODONE 5 MG Tab PO SCH ×5 (05:43→20:31)
[2022-05-27] MEDS: Al and Mag Hydroxide/Diphenhydramine/Lidocaine/Simethicone 237 ML Bottle PO SCH ×4 (05:44→23:08)
[2022-05-27 06:29] LABS: CARBON DIOXIDE,CO2 23.6 mmol/L (21.0-32.0); POTASSIUM,K 3.7 mmol/L (3.5-5.1)
[2022-05-27] MEDS: Pantoprazole 40 MG Tab.CR PO SCH (06:41)
[2022-05-27] MEDS: Acyclovir 200 MG Cap PO SCH ×5 (06:42→23:08)
[2022-05-27] MEDS: Ascorbic Acid 500 MG Tab PO SCH ×2 (08:33→20:31)
[2022-05-27] MEDS: Cetirizine 10 MG Tab PO SCH (08:35)
[2022-05-27] MEDS: atorvaSTATin 20 MG Tab PO SCH (08:36)
[2022-05-27] MEDS: Folic Acid 1 MG Tab PO SCH (08:36)
[2022-05-27] MEDS: Tamsulosin 0.4 MG Cap.ER PO SCH (08:37)
[2022-05-27] MEDS ORDERED: Phenol 1.4% Oral Spray 177 ML Bottle MUCMEM PRN (08:51)
[2022-05-27] MEDS: OLODATEROL HCL INH SCH (08:52)
[2022-05-27] MEDS: TIOTROPIUM BR INH SCH (08:52)
[2022-05-27] MEDS: Dronabinol 2.5 MG Cap PO SCH (09:23)
[2022-05-27] MEDS: Carboxymethylcellulose Sodium 0.5% Ophth Soln 0.4 ML UD Box of 30 EYEBOTH SCH ×4 (10:48→23:08)
[2022-05-27] MEDS: Cefepime 2 GM in Premix Bag 1 BAG IV SCH ×3 (10:53→18:13)
[2022-05-27] MEDS ORDERED: Bupivacaine 0.5% 30 ML SDV ONE (12:55)
[2022-05-27] MEDS ORDERED: Lidocaine 1% 20 ML MDV ONE (12:55)
[2022-05-27] MEDS ORDERED: ePHEDrine 50 MG/ML SDV ONE (13:42)
[2022-05-27] MEDS ORDERED: Phenylephrine HCl In 0.9% NaCl 1 MG/10 ML Vial ONE (13:42)
[2022-05-27] MEDS ORDERED: Water For Injection, Sterile 20 ML ONE (13:42)
[2022-05-27] MEDS: Mirtazapine 15 MG Tab PO SCH (20:31)
[2022-05-28] MEDS: oxyCODONE 5 MG Tab PO SCH ×5 (02:10→21:58)
[2022-05-28] MEDS: Cefepime 2 GM in Premix Bag 1 BAG IV SCH ×2 (02:11→11:06)
[2022-05-28] MEDS: Carboxymethylcellulose Sodium 0.5% Ophth Soln 0.4 ML UD Box of 30 EYEBOTH SCH ×7 (02:17→21:58)
[2022-05-28 06:17] LABS: CARBON DIOXIDE,CO2 24.2 mmol/L (21.0-32.0); POTASSIUM,K 3.6 mmol/L (3.5-5.1)
[2022-05-28] MEDS: Al and Mag Hydroxide/Diphenhydramine/Lidocaine/Simethicone 237 ML Bottle PO SCH ×5 (06:21→23:51)
[2022-05-28] MEDS: Acyclovir 200 MG Cap PO SCH ×5 (06:21→22:00)
[2022-05-28] MEDS: Pantoprazole 40 MG Tab.CR PO SCH ×2 (06:25→07:25)
[2022-05-28] MEDS ORDERED: Magnesium Sulfate/Water 2 GM in Premix Bag 1 BAG IV ONE (08:11)
[2022-05-28] MEDS: Dronabinol 2.5 MG Cap PO SCH (09:05)
[2022-05-28] MEDS: Cetirizine 10 MG Tab PO SCH (09:05)
[2022-05-28] MEDS: Ascorbic Acid 500 MG Tab PO SCH ×2 (09:05→20:00)
[2022-05-28] MEDS: atorvaSTATin 20 MG Tab PO SCH (09:05)
[2022-05-28] MEDS: OLODATEROL HCL INH SCH (09:06)
[2022-05-28] MEDS: TIOTROPIUM BR INH SCH (09:06)
[2022-05-28] MEDS: Folic Acid 1 MG Tab PO SCH (09:06)
[2022-05-28] MEDS: Tamsulosin 0.4 MG Cap.ER PO SCH (09:06)
[2022-05-28] MEDS: ceFAZolin 2 GM in Premix Bag 1 BAG IV SCH ×2 (17:14→23:56)
[2022-05-28] MEDS: Mirtazapine 15 MG Tab PO SCH (20:00)
[2022-05-29] MEDS: Carboxymethylcellulose Sodium 0.5% Ophth Soln 0.4 ML UD Box of 30 EYEBOTH SCH ×6 (03:30→22:27)
[2022-05-29] MEDS: oxyCODONE 5 MG Tab PO SCH ×5 (03:31→22:57)
[2022-05-29] MEDS: Acyclovir 200 MG Cap PO SCH ×5 (06:21→22:56)
[2022-05-29] MEDS: Al and Mag Hydroxide/Diphenhydramine/Lidocaine/Simethicone 237 ML Bottle PO SCH ×3 (06:21→18:10)
[2022-05-29 08:20] LABS: CARBON DIOXIDE,CO2 25.8 mmol/L (21.0-32.0); POTASSIUM,K 3.4 mmol/L (3.5-5.1)
[2022-05-29] MEDS: ceFAZolin 2 GM in Premix Bag 1 BAG IV SCH ×2 (08:50→17:24)
[2022-05-29] MEDS: atorvaSTATin 20 MG Tab PO SCH (08:51)
[2022-05-29] MEDS: Tamsulosin 0.4 MG Cap.ER PO SCH (08:51)
[2022-05-29] MEDS: Folic Acid 1 MG Tab PO SCH (08:51)
[2022-05-29] MEDS: Cetirizine 10 MG Tab PO SCH (08:51)
[2022-05-29] MEDS: Dronabinol 2.5 MG Cap PO SCH (08:51)
[2022-05-29] MEDS: OLODATEROL HCL INH SCH (09:08)
[2022-05-29] MEDS: TIOTROPIUM BR INH SCH (09:08)
[2022-05-29] MEDS: Ascorbic Acid 500 MG Tab PO SCH ×2 (14:05→22:35)
[2022-05-29] MEDS: Mirtazapine 15 MG Tab PO SCH (22:26)
[2022-05-30] MEDS: ceFAZolin 2 GM in Premix Bag 1 BAG IV SCH ×3 (00:40→15:36)
[2022-05-30] MEDS: Al and Mag Hydroxide/Diphenhydramine/Lidocaine/Simethicone 237 ML Bottle PO SCH ×5 (00:41→23:46)
[2022-05-30] MEDS: Carboxymethylcellulose Sodium 0.5% Ophth Soln 0.4 ML UD Box of 30 EYEBOTH SCH ×6 (03:00→23:44)
[2022-05-30] MEDS: oxyCODONE 5 MG Tab PO SCH ×5 (03:31→23:40)
[2022-05-30] MEDS: Acyclovir 200 MG Cap PO SCH ×5 (06:57→23:40)
[2022-05-30] MEDS ORDERED: Potassium Chloride 20 MEQ Tab.ER PO ONE (06:58)
[2022-05-30 07:35] LABS: CARBON DIOXIDE,CO2 27.9 mmol/L (21.0-32.0); POTASSIUM,K 3.8 mmol/L (3.5-5.1)
[2022-05-30] MEDS: Tamsulosin 0.4 MG Cap.ER PO SCH (07:42)
[2022-05-30] MEDS: Cetirizine 10 MG Tab PO SCH (08:45)
[2022-05-30] MEDS: Folic Acid 1 MG Tab PO SCH (08:45)
[2022-05-30] MEDS: atorvaSTATin 20 MG Tab PO SCH (08:45)
[2022-05-30] MEDS: Dronabinol 2.5 MG Cap PO SCH (08:46)
[2022-05-30] MEDS: Ascorbic Acid 500 MG Tab PO SCH ×2 (08:46→20:18)
[2022-05-30] MEDS: OLODATEROL HCL INH SCH (09:34)
[2022-05-30] MEDS: TIOTROPIUM BR INH SCH (09:34)
[2022-05-30] MEDS: Mirtazapine 15 MG Tab PO SCH (20:19)
[2022-05-30] MEDS ORDERED: ceFAZolin 2 GM in Sodium Chloride 0.9% 100 ML IV SCH (22:30)
[2022-05-30] MEDS ORDERED: Sodium Chloride 0.9% 100 ML ONE (23:24)
[2022-05-31] MEDS ORDERED: ceFAZolin 2 GM in Sodium Chloride 0.9% 100 ML IV SCH (00:30)
[2022-05-31] MEDS: Carboxymethylcellulose Sodium 0.5% Ophth Soln 0.4 ML UD Box of 30 EYEBOTH SCH ×7 (02:11→22:00)
[2022-05-31] MEDS: oxyCODONE 5 MG Tab PO SCH ×4 (05:23→20:12)
[2022-05-31] MEDS: Al and Mag Hydroxide/Diphenhydramine/Lidocaine/Simethicone 237 ML Bottle PO SCH ×3 (05:25→17:25)
[2022-05-31 05:54] LABS: CARBON DIOXIDE,CO2 27.1 mmol/L (21.0-32.0); POTASSIUM,K 4.1 mmol/L (3.5-5.1)
[2022-05-31] MEDS: Acyclovir 200 MG Cap PO SCH ×5 (06:50→22:00)
[2022-05-31] MEDS: Ascorbic Acid 500 MG Tab PO SCH ×2 (08:07→20:12)
[2022-05-31] MEDS: Cetirizine 10 MG Tab PO SCH (08:07)
[2022-05-31] MEDS: Folic Acid 1 MG Tab PO SCH (08:07)
[2022-05-31] MEDS: Tamsulosin 0.4 MG Cap.ER PO SCH (08:07)
[2022-05-31] MEDS: Dronabinol 2.5 MG Cap PO SCH (08:07)
[2022-05-31] MEDS: atorvaSTATin 20 MG Tab PO SCH (08:07)
[2022-05-31] MEDS: TIOTROPIUM BR INH SCH (08:09)
[2022-05-31] MEDS: OLODATEROL HCL INH SCH (08:09)
[2022-05-31] MEDS: ceFAZolin 2 GM in Sodium Chloride 0.9% 100 ML IV SCH ×2 (08:52→15:12)
[2022-05-31] MEDS: Mirtazapine 15 MG Tab PO SCH (20:12)
[2022-06-01] MEDS: ceFAZolin 2 GM in Sodium Chloride 0.9% 100 ML IV SCH ×4 (00:37→23:37)
[2022-06-01] MEDS: oxyCODONE 5 MG Tab PO SCH ×5 (00:38→20:35)
[2022-06-01] MEDS: Al and Mag Hydroxide/Diphenhydramine/Lidocaine/Simethicone 237 ML Bottle PO SCH ×5 (00:38→23:37)
[2022-06-01] MEDS: Carboxymethylcellulose Sodium 0.5% Ophth Soln 0.4 ML UD Box of 30 EYEBOTH SCH ×6 (01:53→21:44)
[2022-06-01 05:40] LABS: CARBON DIOXIDE,CO2 29.6 mmol/L (21.0-32.0)
[2022-06-01] MEDS: Acyclovir 200 MG Cap PO SCH ×5 (06:23→23:37)
[2022-06-01] MEDS: Tamsulosin 0.4 MG Cap.ER PO SCH (08:11)
[2022-06-01] MEDS: atorvaSTATin 20 MG Tab PO SCH (09:34)
[2022-06-01] MEDS: Folic Acid 1 MG Tab PO SCH (09:34)
[2022-06-01] MEDS: Cetirizine 10 MG Tab PO SCH (09:46)
[2022-06-01] MEDS: Dronabinol 2.5 MG Cap PO SCH (09:46)
[2022-06-01] MEDS: OLODATEROL HCL INH SCH (10:38)
[2022-06-01] MEDS: TIOTROPIUM BR INH SCH (10:38)
[2022-06-01] MEDS: Ascorbic Acid 500 MG Tab PO SCH ×2 (10:39→20:35)
[2022-06-01] MEDS: Mirtazapine 15 MG Tab PO SCH (20:35)
[2022-06-02] MEDS: oxyCODONE 5 MG Tab PO SCH ×3 (02:19→11:11)
[2022-06-02] MEDS: Carboxymethylcellulose Sodium 0.5% Ophth Soln 0.4 ML UD Box of 30 EYEBOTH SCH ×2 (02:19→06:08)
[2022-06-02] MEDS: Al and Mag Hydroxide/Diphenhydramine/Lidocaine/Simethicone 237 ML Bottle PO SCH (05:25)
[2022-06-02 05:53] LABS: CARBON DIOXIDE,CO2 27.4 mmol/L (21.0-32.0); POTASSIUM,K 4.1 mmol/L (3.5-5.1)
[2022-06-02] MEDS: Acyclovir 200 MG Cap PO SCH ×2 (06:28→11:10)
[2022-06-02] MEDS: ceFAZolin 2 GM in Sodium Chloride 0.9% 100 ML IV SCH (08:49)
[2022-06-02] MEDS: Tamsulosin 0.4 MG Cap.ER PO SCH (08:56)
[2022-06-02] MEDS: Ascorbic Acid 500 MG Tab PO SCH (09:23)
[2022-06-02] MEDS: Dronabinol 2.5 MG Cap PO SCH (09:27)
[2022-06-02] MEDS: atorvaSTATin 20 MG Tab PO SCH (09:27)
[2022-06-02] MEDS: Cetirizine 10 MG Tab PO SCH ×2 (09:28→09:39)
[2022-06-02] MEDS: Folic Acid 1 MG Tab PO SCH (09:29)
[2022-06-02] MEDS ORDERED: Cetirizine 10 MG Tab ONE (09:36)
[2022-06-02] MEDS: TIOTROPIUM BR INH SCH (09:44)
[2022-06-02] MEDS: OLODATEROL HCL INH SCH (09:44)
[2022-06-02 11:22] VITALS: BP 125/70; PULSE 76
== END 2022-06-02 12:40 | disposition home or self-care (01) | DRG 314 ==
LOC: MW.ED 11:10 → MW.MS 15:00
PROVIDERS: ADMIT Internal Medicine; ATTEND Student in an Organized Health Care Education/Training Program
PROC: 0JPV0WZ Removal of Totally Implantable Vascular Access Device from Upper Extremity Subcutaneous Tissue and Fascia, Open Approach (ICD-10-PCS; principal; 2022-05-24)
PROC: 30233N1 Transfusion of Nonautologous Red Blood Cells into Peripheral Vein, Percutaneous Approach (ICD-10-PCS; 2022-05-25)
PROC: 30233R1 Transfusion of Nonautologous Platelets into Peripheral Vein, Percutaneous Approach (ICD-10-PCS; 2022-05-27)
DX: T80.211A Bloodstream infection due to central venous catheter, initial encounter (principal); A41.1 Sepsis due to other specified staphylococcus; D84.9 Immunodeficiency, unspecified; D61.818 Other pancytopenia; J44.9 Chronic obstructive pulmonary disease, unspecified; D46.9 Myelodysplastic syndrome, unspecified; E78.2 Mixed hyperlipidemia; N40.0 Benign prostatic hyperplasia without lower urinary tract symptoms; Z20.822 Contact with and (suspected) exposure to COVID-19; Z51.5 Encounter for palliative care; Z66 Do not resuscitate; J43.9 Emphysema, unspecified; D70.9 Neutropenia, unspecified; R50.81 Fever presenting with conditions classified elsewhere; H54.7 Unspecified visual loss; E78.00 Pure hypercholesterolemia, unspecified; K59.09 Other constipation; K21.9 Gastro-esophageal reflux disease without esophagitis; M54.9 Dorsalgia, unspecified; F32.A Depression, unspecified; M19.90 Unspecified osteoarthritis, unspecified site; G89.29 Other chronic pain; D69.6 Thrombocytopenia, unspecified; Z98.49 Cataract extraction status, unspecified eye; Z87.891 Personal history of nicotine dependence; Z79.899 Other long term (current) drug therapy
CPT/HCPCS: 0240U; 36415; 36591; 71045; 71046; 80048; 80053; 80202; 81001; 82947; 83605; 83735; 84100; 85025; 87040; 87077; 87154; 87186; 00400; 88300; 96365; 96367; 99100; 99285-25; A9270-GY; J0690; J0692; J3370; J3475; J3490; J7030; J7050; P9016; P9034; Q0167

== ENCOUNTER 2022-08-09 10:32 | Emergency (ER) | payer MEDICARE, MEDICAID ==
[2022-08-09] MEDS ORDERED: Ondansetron 4 MG/2 ML SDV IVPUSH ONE (11:00)
[2022-08-09] MEDS ORDERED: HYDROmorphone 1 MG/ML Syringe IVPUSH ONE ×2 (11:00→11:45)
[2022-08-09 13:29] VITALS: BP 118/70; PULSE 84
== END 2022-08-09 13:29 | disposition home or self-care (01) ==
LOC: MW.ED 10:32
DX: M43.6 Torticollis (principal); E78.00 Pure hypercholesterolemia, unspecified; J44.9 Chronic obstructive pulmonary disease, unspecified; Z79.899 Other long term (current) drug therapy
CPT/HCPCS: 72125; 96374; 96375; 96376; 99283; J1170; J2405

== ENCOUNTER 2022-08-24 09:09 | Inpatient (IN) | payer MEDICARE, MEDICAID ==
[2022-08-24] MEDS ORDERED: Sodium Chloride 0.9% 2.5 ML Syringe FLUSH PRN ×2 (09:38→16:09)
[2022-08-24] MEDS ORDERED: Sodium Chloride 0.9% 10 ML Syringe FLUSH PRN ×2 (09:38→16:09)
[2022-08-24] MEDS ORDERED: Piperacillin/Tazobactam 3.375 GM in Sodium Chloride 0.9% 50 ML IV ONE (09:42)
[2022-08-24] MEDS ORDERED: Acetaminophen 325 MG Tab PO ONE (09:44)
[2022-08-24 10:20] LABS: CARBON DIOXIDE,CO2 24.7 mmol/L (21.0-32.0); POTASSIUM,K 3.3 mmol/L (3.5-5.1)
[2022-08-24 13:16] LABS: CORONAVIRUS COVID-19 NAA NEGATIVE (NEGATIVE); INFLUENZA A NAA NEGATIVE (NEGATIVE); INFLUENZA B NAA NEGATIVE (NEGATIVE); RESPIRATORY SYNCYTIAL VIR NAA NEGATIVE (NEGATIVE)
[2022-08-24] MEDS ORDERED: Lactated Ringers 1,000 ML IV SCH (13:30)
[2022-08-24] MEDS ORDERED: Polyethylene Glycol 3350 Powder 17 GM Packet PO PRN (16:09)
[2022-08-24] MEDS ORDERED: Acetaminophen 325 MG Tab PO PRN (16:09)
[2022-08-24] MEDS ORDERED: Ondansetron 4 MG/2 ML SDV IVPUSH PRN (16:09)
[2022-08-24] MEDS ORDERED: Albuterol/Ipratropium 3.0-0.5 MG/3 ML Neb Soln NEB PRN (16:09)
[2022-08-24] MEDS ORDERED: Iopamidol 755 MG/ML 500 ML Multipack Bottle IVPUSH STA (16:33)
[2022-08-24] MEDS: Piperacillin/Tazobactam 3.375 GM in Sodium Chloride 0.9% 50 ML IV SCH ×2 (16:49→22:07)
[2022-08-24] MEDS: Lactated Ringers 1,000 ML IV SCH (17:05)
[2022-08-24] MEDS ORDERED: VANCOmycin 1.5 GM/300 ML 300 ML IV ONE (17:30)
[2022-08-24] MEDS ORDERED: Lactulose Soln 10 GM/15 ML 15 ML UD Cup PO PRN (18:20)
[2022-08-24] MEDS ORDERED: Bisacodyl 10 MG Supp RECTAL PRN (18:21)
[2022-08-24] MEDS: Docusate Sodium 100 MG Cap PO SCH (22:07)
[2022-08-24] MEDS: Mirtazapine 15 MG Tab PO SCH (22:07)
[2022-08-25] MEDS: Acetaminophen/oxyCODONE 325-10 MG Tab PO PRN ×5 (02:32→21:42)
[2022-08-25] MEDS: Lactated Ringers 1,000 ML IV SCH (02:33)
[2022-08-25] MEDS: Piperacillin/Tazobactam 3.375 GM in Sodium Chloride 0.9% 50 ML IV SCH ×4 (03:45→21:43)
[2022-08-25 06:25] LABS: CARBON DIOXIDE,CO2 26.1 mmol/L (21.0-32.0); POTASSIUM,K 3.4 mmol/L (3.5-5.1)
[2022-08-25] MEDS ORDERED: Magnesium Sulfate/Water 4 GM in Premix Bag 1 BAG IV ONE (07:54)
[2022-08-25] MEDS ORDERED: Potassium Chloride 20 MEQ Tab.ER PO ONE (07:54)
[2022-08-25] MEDS: Docusate Sodium 100 MG Cap PO SCH ×2 (08:17→21:17)
[2022-08-25] MEDS: Tamsulosin 0.4 MG Cap.ER PO SCH (08:18)
[2022-08-25] MEDS ORDERED: Bisacodyl 5 MG Tab PO ONE (08:20)
[2022-08-25] MEDS: Mirtazapine 15 MG Tab PO SCH (21:17)
[2022-08-26] MEDS: Acetaminophen/oxyCODONE 325-10 MG Tab PO PRN ×2 (03:06→10:04)
[2022-08-26] MEDS: Piperacillin/Tazobactam 3.375 GM in Sodium Chloride 0.9% 50 ML IV SCH ×2 (04:18→10:08)
[2022-08-26 06:11] LABS: CARBON DIOXIDE,CO2 24.8 mmol/L (21.0-32.0); POTASSIUM,K 3.7 mmol/L (3.5-5.1)
[2022-08-26] MEDS: Tamsulosin 0.4 MG Cap.ER PO SCH (10:03)
[2022-08-26] MEDS: Docusate Sodium 100 MG Cap PO SCH (10:04)
[2022-08-26] MEDS ORDERED: VANCOmycin 1.5 GM/300 ML 1.5 GM in Premix Bag 1 BAG IV SCH (11:00)
[2022-08-26] MEDS ORDERED: Levofloxacin 750 MG Tab PO SCH (11:00)
[2022-08-26 11:49] VITALS: BP 117/69; PULSE 74
== END 2022-08-26 12:20 | disposition home or self-care (01) | DRG 812 ==
LOC: MW.ED 09:09 → MW.MS 16:03
PROVIDERS: ADMIT Hospitalist; ATTEND Hospitalist
PROC: 30233N1 Transfusion of Nonautologous Red Blood Cells into Peripheral Vein, Percutaneous Approach (ICD-10-PCS; principal; 2022-08-25)
DX: A41.9 Sepsis, unspecified organism (principal); D46.0 Refractory anemia without ring sideroblasts, so stated; D46.9 Myelodysplastic syndrome, unspecified; D84.9 Immunodeficiency, unspecified; E78.00 Pure hypercholesterolemia, unspecified; D61.818 Other pancytopenia; R65.10 Systemic inflammatory response syndrome (SIRS) of non-infectious origin without acute organ dysfunction; Z20.822 Contact with and (suspected) exposure to COVID-19; J44.9 Chronic obstructive pulmonary disease, unspecified; K21.9 Gastro-esophageal reflux disease without esophagitis; F32.A Depression, unspecified; K59.09 Other constipation; E78.5 Hyperlipidemia, unspecified; M54.2 Cervicalgia; Z79.899 Other long term (current) drug therapy; Z79.1 Long term (current) use of non-steroidal anti-inflammatories (NSAID); Z87.891 Personal history of nicotine dependence; Z79.2 Long term (current) use of antibiotics; Z79.52 Long term (current) use of systemic steroids; Z98.42 Cataract extraction status, left eye; Z98.41 Cataract extraction status, right eye; Z87.19 Personal history of other diseases of the digestive system; Z97.3 Presence of spectacles and contact lenses; Z98.890 Other specified postprocedural states; Z87.81 Personal history of (healed) traumatic fracture
CPT/HCPCS: 0241U; 36415; 36430; 71045; 71045-26; 74177; 74177-26; 80048; 80053; 80202; 81003; 83605; 83735; 84100; 85014; 85018; 85025; 86308; 86850; 86900; 86901; 86920; 87040; A9270-GY; J2543; J3370; J3475; J3490; J7050; J7120; P9016; Q9967

== ENCOUNTER 2023-02-01 11:19 | Emergency (ER) | payer OTHER, MEDICARE, MEDICAID ==
[2023-02-01] MEDS ORDERED: Sodium Chloride 0.9% 10 ML Syringe FLUSH PRN (11:27)
[2023-02-01] MEDS ORDERED: Sodium Chloride 0.9% 2.5 ML Syringe FLUSH PRN (11:27)
[2023-02-01] MEDS ORDERED: fentaNYL 50 MCG/ML SDV IVPUSH ONE (11:27)
[2023-02-01] MEDS ORDERED: Naloxone 0.4 MG/ML SDV IVPUSH PRN (11:27)
[2023-02-01 11:39] LABS: HEMATOCRIT 24.3 % (38.0-50.0); HEMOGLOBIN 8.1 g/dL (13.0-17.0); MEAN CORPUSCULAR HEMOGLOBIN 32.3 pg (27.0-32.0); MEAN CORPUSCULAR HGB CONC 33.3 g/dL (31.0-37.0); MEAN CORPUSCULAR VOLUME 96.8 fL (80.0-98.0); NRBC ABSOLUTE 0 K/uL; PLATELET COUNT,PLT 104 K/uL (150-400); RED BLOOD CELL COUNT 2.51 M/uL (4.50-5.90); WHITE BLOOD CELL COUNT,WBC 4.14 K/uL (4.0-11.0)
[2023-02-01 11:53] LABS: INR 1.12 (0.86-1.11); PTT,PARTIAL THROMBOPLSTIN TIME 29.9 SEC (23.9-30.7)
[2023-02-01 12:12] LABS: ALKALINE PHOSPHATASE 97 U/L (46-116); BILIRUBIN TOTAL 0.5 mg/dL (0.2-1.0); CALCIUM 8.3 mg/dL (8.5-10.1); CHLORIDE,CL 102 mmol/L (98-107)
[2023-02-01 12:15] LABS: A/G RATIO 0.6 (0.9-1.6); ALANINE AMINOTRANSFERASE,ALT 24 IU/L (14-63); ASPARTATE AMNIOTRANSFERASE,AST 14 IU/L (15-37); BLOOD UREA NITROGEN,BUN 6 mg/dL (7.0-18.0); CARBON DIOXIDE,CO2 26.9 mmol/L (21.0-32.0); CREATININE 0.9 mg/dL (0.8-1.3); GLUCOSE RANDOM 110 mg/dL (74-106); LIPASE 26 U/L (73-393); POTASSIUM,K 3.8 mmol/L (3.5-5.1); PROTEIN TOTAL,TP 7.7 g/dL (6.4-8.2); SODIUM,NA 139 mmol/L (136-148)
[2023-02-01 12:16] LABS: ESTIMATED GFR 88 mL/min (>60)
[2023-02-01 12:19] LABS: LACTIC ACID 1.1 mmol/L (0.4-2.0)
[2023-02-01 12:27] LABS: BAND ABSOLUTE MAN 0.3; BAND PERCENT MAN 8 %; BASOPHILS PERCENT MAN 1 % (0.0-1.5); LYMPHOCYTES ABSOLUTE MAN 1.2 (0.6-2.4); LYMPHOCYTES PERCENT MAN 29 % (16.0-40.0); METAMYELOCYTE ABSOLUTE MAN 0.2; METAMYELOCYTE PERCENT MAN 6 %; MONOCYTES ABSOLUTE MAN 1.1 (0.0-0.8); MONOCYTES PERCENT MAN 27 % (0.0-15.0); MYELOCYTE ABSOLUTE MAN 0.1; MYELOCYTE PERCENT MAN 3 %; SEG NEUTROPHILS ABSOLUTE MAN 1.1 (1.4-5.7); SEG NEUTROPHILS PERCENT MAN 26 % (48.0-80.0)
[2023-02-01] MEDS ORDERED: Iopamidol 755 MG/ML 500 ML Multipack Bottle IVPUSH ONE (14:55)
[2023-02-01] MEDS ORDERED: Morphine 2 MG/ML SYRINGE IVPUSH ONE (15:44)
[2023-02-01] MEDS ORDERED: oxyCODONE ER 10 MG TAB.ER PO ONE (16:16)
[2023-02-01 17:40] VITALS: BP 109/56
[2023-02-01] MEDS ORDERED: Ondansetron 4 MG/2 ML SDV IVPUSH ONE (18:04)
[2023-02-01 18:34] VITALS: PULSE 92
== END 2023-02-01 18:34 | disposition home or self-care (01) ==
LOC: MW.ED 11:19
DX: S22.089A Unspecified fracture of T11-T12 vertebra, initial encounter for closed fracture (principal); D46.9 Myelodysplastic syndrome, unspecified; J44.9 Chronic obstructive pulmonary disease, unspecified; E78.00 Pure hypercholesterolemia, unspecified; Z79.899 Other long term (current) drug therapy; V49.40XA Driver injured in collision with unspecified motor vehicles in traffic accident, initial encounter; Y92.410 Unspecified street and highway as the place of occurrence of the external cause
CPT/HCPCS: 36415; 70450; 71260; 72125; 74177; 80053; 83605; 83690; 84484; 85025; 85610; 85730; 86850; 86900; 86901; 93005; 96374; 96375; 99291; A9270; G0390; J2270; J2405; J3010; J3490; Q9967; 72128; 72128-26; 72131; 72131-26; 93010

== ENCOUNTER 2023-05-16 11:43 | Emergency (ER) | payer MEDICARE, MEDICAID ==
[2023-05-16] MEDS ORDERED: Sodium Chloride 0.9% 2.5 ML Syringe FLUSH PRN (12:05)
[2023-05-16] MEDS ORDERED: Ondansetron 4 MG Tab.DIS PO ONE (12:05)
[2023-05-16] MEDS ORDERED: Morphine 4 MG/ML Syringe IVPUSH ONE (12:05)
[2023-05-16] MEDS ORDERED: Sodium Chloride 0.9% 10 ML Syringe FLUSH PRN (12:05)
[2023-05-16] MEDS ORDERED: Ondansetron 4 MG/2 ML SDV IVPUSH ONE (12:18)
[2023-05-16 13:34] LABS: APPEARANCE,URINE CLEAR; BILIRUBIN,URINE NEGATIVE (NEGATIVE); COLOR,URINE YELLOW; GLUCOSE,URINE NEGATIVE (NEGATIVE); KETONES,URINE NEGATIVE (NEGATIVE); LEUKOCYTE ESTERASE,URINE NEGATIVE (NEGATIVE); NITRITE,URINE NEGATIVE (NEGATIVE); OCCULT BLOOD,URINE TRACE-INTACT (NEGATIVE); PH,URINE 5.5 (5.0-8.0); PROTEIN,URINE NEGATIVE (NEGATIVE); UROBILINOGEN,URINE 0.2 EU/dL (<2.0)
[2023-05-16] MEDS ORDERED: Iopamidol 755 MG/ML 500 ML Multipack Bottle IVPUSH STA (13:34)
[2023-05-16 13:43] LABS: BACTERIA,URINE FEW (NEGATIVE); EPITHELIAL CELLS,URINE RARE (NONE-FEW); RBC,URINE 0-2 (0-2/HPF); WBC,URINE 0-1 (0-5/HPF)
[2023-05-16] MEDS ORDERED: Dicyclomine 10 MG Cap PO ONE (15:42)
[2023-05-16 17:30] VITALS: BP 122/76; PULSE 90
== END 2023-05-16 17:30 | disposition home or self-care (01) ==
LOC: MW.ED 11:43
DX: S22.089A Unspecified fracture of T11-T12 vertebra, initial encounter for closed fracture (principal); R10.9 Unspecified abdominal pain; E78.00 Pure hypercholesterolemia, unspecified; J44.9 Chronic obstructive pulmonary disease, unspecified; K21.9 Gastro-esophageal reflux disease without esophagitis; Z79.899 Other long term (current) drug therapy
CPT/HCPCS: 36415; 74177; 81001; 83690; 84484; 93005; 96374; 96375; 99284; A9270; J2270; J2405; J3490; Q9967; 93010

== ENCOUNTER 2024-03-11 21:05 | Emergency (ER) | payer MEDICARE, MEDICAID ==
[2024-03-11] MEDS: HYDROmorphone 1 MG/ML Syringe IM ONE (22:08)
[2024-03-11 22:48] VITALS: BP 100/55; PULSE 76
== END 2024-03-11 22:47 | disposition home or self-care (01) ==
LOC: MW.ED 21:05
DX: M54.50 Low back pain, unspecified (principal); M54.2 Cervicalgia; E78.00 Pure hypercholesterolemia, unspecified; J44.9 Chronic obstructive pulmonary disease, unspecified; K21.9 Gastro-esophageal reflux disease without esophagitis; Z75.8 Other problems related to medical facilities and other health care; Z79.899 Other long term (current) drug therapy; Z79.51 Long term (current) use of inhaled steroids
CPT/HCPCS: 96372; 99283; J1170

== ENCOUNTER 2024-05-22 23:19 | Inpatient (IN) | payer MEDICARE, MEDICAID ==
[2024-05-22 23:44] LABS: BASE EXCESS VENOUS 1.9 (-2.0-3.0); PH,VENOUS 7.42 (7.31-7.41)
[2024-05-22] MEDS: Cefepime 2 GM in Sodium Chloride 0.9% 50 ML IV ONE (23:45)
[2024-05-22] MEDS: Albuterol/Ipratropium 3.0-0.5 MG/3 ML Neb Soln NEB ONE (23:45)
[2024-05-22 23:46] LABS: HEMATOCRIT 24.5 % (42.0-52.0); HEMOGLOBIN 7.9 g/dL (14.0-18.0); MEAN CORPUSCULAR HEMOGLOBIN 32.6 pg (28.0-32.0); MEAN CORPUSCULAR HGB CONC 32.2 g/dL (32.0-36.0); MEAN CORPUSCULAR VOLUME 101.2 fL (83.0-99.0); MEAN PLATELET VOLUME 10.3 fL (9.4-12.4); PLATELET COUNT,PLT 159 K/uL (150-400); RED BLOOD CELL COUNT 2.42 M/uL (4.52-5.90); WHITE BLOOD CELL COUNT,WBC 10.22 K/uL (3.9-11.3)
[2024-05-22] MEDS: Cefepime 2 GM Vial ONE (23:59)
[2024-05-22] MEDS: methylPREDNISolone Sodium Succinate 125 MG/2 ML SDV IVPUSH ONE (23:59)
[2024-05-23] MEDS: Sodium Chloride 0.9% 10 ML Syringe FLUSH PRN (00:09)
[2024-05-23 00:16] LABS: A/G RATIO 0.7 (0.9-1.6); ALBUMIN 2.8 g/dL (3.4-5.0); BILIRUBIN TOTAL 0.5 mg/dL (0.2-1.0); C-REACTIVE PROTEIN 2.87 mg/dL (<0.3); CALCIUM 8.1 mg/dL (8.5-10.1); EST CRCL DRUG DOSING (CG) 46.48 mL/min; MAGNESIUM 1.3 mg/dL (1.8-2.4); POTASSIUM,K 4.6 mmol/L (3.5-5.1)
[2024-05-23 00:45] LABS: LYMPHOCYTES ABSOLUTE MAN 0.92 K/uL (1.00-4.80); LYMPHOCYTES PERCENT MAN 9 % (24-44); MONOCYTES ABSOLUTE MAN 1.23 K/uL (0.00-0.80); MONOCYTES PERCENT MAN 12 % (0-8)
[2024-05-23 00:46] LABS: BAND ABSOLUTE MAN 0.51; BAND PERCENT MAN 5 %; SEG NEUTROPHILS ABSOLUTE MAN 7.56 K/uL (1.80-7.70); SEG NEUTROPHILS PERCENT MAN 74 % (41-71)
[2024-05-23] MEDS: Iopamidol 755 Mg/ML 100 ML Bottle IVPUSH ONE (01:16)
[2024-05-23 01:36] LABS: APPEARANCE,URINE CLEAR; BILIRUBIN,URINE NEGATIVE (NEGATIVE); COLOR,URINE YELLOW; GLUCOSE,URINE NEGATIVE (NEGATIVE); KETONES,URINE NEGATIVE (NEGATIVE); LEUKOCYTE ESTERASE,URINE NEGATIVE (NEGATIVE); NITRITE,URINE NEGATIVE (NEGATIVE); OCCULT BLOOD,URINE SMALL (NEGATIVE); PH,URINE 6.5 (5.0-8.0); PROTEIN,URINE NEGATIVE (NEGATIVE); UROBILINOGEN,URINE 0.2 EU/dL (<2.0)
[2024-05-23 01:48] LABS: AMORPHOUS SEDIMENT,URINE LIGHT (NEGATIVE); BACTERIA,URINE FEW (NEGATIVE); EPITHELIAL CELLS,URINE OCCASIONAL (NONE-FEW); WBC,URINE 0-2 (0-5/HPF)
[2024-05-23] MEDS: oxyCODONE 5 MG Tab PO ONE (02:10)
[2024-05-23] MEDS: Acetaminophen 500 MG Tab PO ONE (02:10)
[2024-05-23] MEDS: Sodium Chloride 0.9% 500 ML IV SCH (02:28)
[2024-05-23] MEDS: Doxycycline 100 MG in Sodium Chloride 0.9% 100 ML IV SCH (03:34)
[2024-05-23] MEDS: Magnesium Sulfate/Water Premix 2 GM in Premix Bag 1 BAG IV ONE (04:55)
[2024-05-23] MEDS ORDERED: Albuterol/Ipratropium 3.0-0.5 MG/3 ML Neb Soln NEB PRN (05:57)
[2024-05-23] MEDS ORDERED: Melatonin 3 MG Tab PO PRN (05:57)
[2024-05-23] MEDS ORDERED: Ondansetron 4 MG/2 ML SDV IVPUSH PRN (05:57)
[2024-05-23] MEDS ORDERED: Polyethylene Glycol 3350 Powder 17 GM Packet PO PRN (05:57)
[2024-05-23] MEDS ORDERED: Acetaminophen 650 MG Supp RECTAL PRN (05:57)
[2024-05-23] MEDS: Albuterol/Ipratropium 3.0-0.5 MG/3 ML Neb Soln NEB SCH (06:30)
[2024-05-23 07:34] LABS: HEMATOCRIT 21.5 % (42.0-52.0); HEMOGLOBIN 6.9 g/dL (14.0-18.0); MEAN CORPUSCULAR HEMOGLOBIN 32.7 pg (28.0-32.0); MEAN CORPUSCULAR HGB CONC 32.1 g/dL (32.0-36.0); MEAN CORPUSCULAR VOLUME 101.9 fL (83.0-99.0); PLATELET COUNT,PLT 126 K/uL (150-400); RED BLOOD CELL COUNT 2.11 M/uL (4.52-5.90); WHITE BLOOD CELL COUNT,WBC 8.13 K/uL (3.9-11.3)
[2024-05-23 08:05] LABS: CALCIUM 8.3 mg/dL (8.5-10.1); CARBON DIOXIDE,CO2 27.9 mmol/L (21.0-32.0); EST CRCL DRUG DOSING (CG) 45.64 mL/min; MAGNESIUM 2.5 mg/dL (1.8-2.4); POTASSIUM,K 4.9 mmol/L (3.5-5.1)
[2024-05-23 08:42] LABS: BAND ABSOLUTE MAN 1.71; BAND PERCENT MAN 21 %; LYMPHOCYTES ABSOLUTE MAN 0.24 K/uL (1.00-4.80); LYMPHOCYTES PERCENT MAN 3 % (24-44); MONOCYTES ABSOLUTE MAN 0.89 K/uL (0.00-0.80); MONOCYTES PERCENT MAN 11 % (0-8); SEG NEUTROPHILS PERCENT MAN 64 % (41-71)
[2024-05-23] MEDS: atorvaSTATin 20 MG Tab PO SCH (10:20)
[2024-05-23] MEDS: Tamsulosin 0.4 MG Cap.ER PO SCH (10:20)
[2024-05-23] MEDS: Cefepime 2 GM in Sodium Chloride 0.9% 50 ML IV SCH (10:36)
[2024-05-23] MEDS ORDERED: Sennosides 8.6 MG Tab PO PRN (10:53)
[2024-05-23] MEDS ORDERED: Cyclobenzaprine 10 MG Tab PO PRN (10:53)
[2024-05-23] MEDS ORDERED: Albuterol 8 GM Inhaler INH PRN (10:53)
[2024-05-23] MEDS: Acetaminophen/oxyCODONE 325-10 MG Tab PO PRN (14:38)
[2024-05-23] MEDS: Tiotropium BR/Olodaterol HCL 4 GM Inhalation Spray 2.5mcg/1 dose; 10 doses INH SCH ×2 (15:25→15:43)
[2024-05-23] MEDS: Calcium Carbonate 500 MG Tab.Chew PO PRN (15:30)
[2024-05-23] MEDS: Pantoprazole 40 MG Tab.CR PO STA (15:40)
[2024-05-23 18:41] LABS: HEMATOCRIT 26.4 % (42.0-52.0); HEMOGLOBIN 8.9 g/dL (14.0-18.0)
[2024-05-23] MEDS: Mirtazapine 15 MG Tab PO SCH (20:34)
[2024-05-24 05:51] LABS: BASOPHILS ABSOLUTE AUTO 0.01 K/uL (0.00-0.20); BASOPHILS PERCENT AUTO 0.2 % (0.0-1.0); IMMATURE GRAN ABSOLUTE AUTO 0.06 K/uL (0.00-0.05); IMMATURE GRAN PERCENT AUTO 1.2 % (0.0-0.4); LYMPHOCYTES ABSOLUTE AUTO 0.57 K/uL (1.00-4.80); LYMPHOCYTES PERCENT AUTO 11.5 % (24.0-44.0); MEAN CORPUSCULAR HEMOGLOBIN 31.8 pg (28.0-32.0); MEAN CORPUSCULAR HGB CONC 33.3 g/dL (32.0-36.0); MEAN CORPUSCULAR VOLUME 95.4 fL (83.0-99.0); MEAN PLATELET VOLUME 10.5 fL (9.4-12.4); MONOCYTES ABSOLUTE AUTO 0.75 K/uL (0.00-0.80); MONOCYTES PERCENT AUTO 15.1 % (0.0-8.0); NEUTROPHILS ABSOLUTE AUTO 3.58 K/uL (1.80-7.70); PLATELET COUNT,PLT 117 K/uL (150-400); RED BLOOD CELL COUNT 2.83 M/uL (4.52-5.90); WHITE BLOOD CELL COUNT,WBC 4.97 K/uL (3.9-11.3)
[2024-05-24] MEDS: Pantoprazole 40 MG Tab.CR PO SCH (06:41)
[2024-05-24 06:44] LABS: CALCIUM 8.5 mg/dL (8.5-10.1); CARBON DIOXIDE,CO2 26.2 mmol/L (21.0-32.0); CREATININE 0.9 mg/dL (0.8-1.3); EST CRCL DRUG DOSING (CG) 50.71 mL/min; MAGNESIUM 1.8 mg/dL (1.8-2.4); POTASSIUM,K 3.9 mmol/L (3.5-5.1)
[2024-05-24 09:07] LABS: BORDETELLA PARAPERT IS1001 Not Detected (Not Detected)
[2024-05-24] MEDS: Bisacodyl 10 MG Supp RECTAL ONE (11:07)
[2024-05-24] MEDS: Acetaminophen 325 MG Tab PO PRN (16:47)
[2024-05-25 06:19] LABS: HEMATOCRIT 28.4 % (42.0-52.0); HEMOGLOBIN 9.2 g/dL (14.0-18.0); MEAN CORPUSCULAR HEMOGLOBIN 31.4 pg (28.0-32.0); MEAN CORPUSCULAR HGB CONC 32.4 g/dL (32.0-36.0); MEAN CORPUSCULAR VOLUME 96.9 fL (83.0-99.0); MEAN PLATELET VOLUME 9.8 fL (9.4-12.4); PLATELET COUNT,PLT 122 K/uL (150-400); RED BLOOD CELL COUNT 2.93 M/uL (4.52-5.90)
[2024-05-25 06:37] LABS: CALCIUM 8.6 mg/dL (8.5-10.1); CARBON DIOXIDE,CO2 29.7 mmol/L (21.0-32.0); CREATININE 0.8 mg/dL (0.8-1.3); EST CRCL DRUG DOSING (CG) 57.05 mL/min; POTASSIUM,K 4.1 mmol/L (3.5-5.1)
[2024-05-25 07:23] LABS: BASOPHILS ABSOLUTE MAN 0.03 K/uL (0.00-0.20); BASOPHILS PERCENT MAN 2 % (0-1); EOSINOPHILS ABSOLUTE MAN 0.02 K/uL (0.00-0.45); EOSINOPHILS PERCENT MAN 1 % (0-6); LYMPHOCYTES ABSOLUTE MAN 0.54 K/uL (1.00-4.80); LYMPHOCYTES PERCENT MAN 36 % (24-44); MONOCYTES ABSOLUTE MAN 0.27 K/uL (0.00-0.80); MONOCYTES PERCENT MAN 18 % (0-8); SEG NEUTROPHILS ABSOLUTE MAN 0.65 K/uL (1.80-7.70); SEG NEUTROPHILS PERCENT MAN 43 % (41-71)
[2024-05-25 12:20] VITALS: BP 142/81; PULSE 95
[2024-05-25] MEDS ORDERED: fentaNYL 50 MCG/HR Transdermal Patch TOP SCH (19:00)
== END 2024-05-25 12:32 | disposition home or self-care (01) | DRG 177 ==
LOC: MW.ED 23:19 → MW.MS 05-23 02:09
PROVIDERS: ADMIT Family Medicine; ATTEND Family Medicine
DX: J69.0 Pneumonitis due to inhalation of food and vomit (principal); J18.9 Pneumonia, unspecified organism; J96.01 Acute respiratory failure with hypoxia; R06.02 Shortness of breath; R09.02 Hypoxemia; R50.9 Fever, unspecified; J44.1 Chronic obstructive pulmonary disease with (acute) exacerbation; J44.0 Chronic obstructive pulmonary disease with (acute) lower respiratory infection; Z51.5 Encounter for palliative care; Z66 Do not resuscitate; D46.9 Myelodysplastic syndrome, unspecified; E78.00 Pure hypercholesterolemia, unspecified; M19.90 Unspecified osteoarthritis, unspecified site; G62.9 Polyneuropathy, unspecified; K59.09 Other constipation; G89.29 Other chronic pain; M54.9 Dorsalgia, unspecified; K21.9 Gastro-esophageal reflux disease without esophagitis; H54.7 Unspecified visual loss; H91.90 Unspecified hearing loss, unspecified ear; E83.19 Other disorders of iron metabolism; Z79.899 Other long term (current) drug therapy; Z98.49 Cataract extraction status, unspecified eye; Z98.890 Other specified postprocedural states; Z87.891 Personal history of nicotine dependence
CPT/HCPCS: 36415 ×2; 71045; 71275; 80053; 81001; 82803; 83605; 83690; 83735; 83880; 84484; 85025; 85652; 86140; 86850; 86900; 86901; 86920; 87040 ×2; 87428; 93005; 96365; 96375; 99285; J0692; J2919; J3490 ×2; J7050; Q9967; 36430; 80048; 80202; 82947; 84100; 85014; 85018; 87486; 87581; 87633; 87899; 93010; 94640; 94664; 94667; 94668; A9270-GY; J3370; J3475; J7040; J7620-GY; P9016

== ENCOUNTER 2025-03-28 21:42 | Emergency (ER) | payer MEDICARE, MEDICAID ==
[2025-03-28 22:45] LABS: BASOPHILS ABSOLUTE AUTO 0.03 K/uL (0.00-0.20); BASOPHILS PERCENT AUTO 0.4 % (0.0-1.0); EOSINOPHILS ABSOLUTE AUTO 0.04 K/uL (0.00-0.45); EOSINOPHILS PERCENT AUTO 0.6 % (0.0-6.0); IMMATURE GRAN ABSOLUTE AUTO 0.20 K/uL (0.00-0.05); IMMATURE GRAN PERCENT AUTO 2.8 % (0.0-0.4); LYMPHOCYTES ABSOLUTE AUTO 0.58 K/uL (1.00-4.80); LYMPHOCYTES PERCENT AUTO 8.2 % (24.0-44.0); MEAN PLATELET VOLUME 11.3 fL (9.4-12.4); MONOCYTES ABSOLUTE AUTO 1.27 K/uL (0.00-0.80); MONOCYTES PERCENT AUTO 18.0 % (0.0-8.0); NEUTROPHILS ABSOLUTE AUTO 4.94 K/uL (1.80-7.70); NEUTROPHILS PERCENT AUTO 70.0 % (41.0-71.0); NRBC ABSOLUTE 0.00 K/uL (0.00-0.02); NRBC PERCENT 0.0 /100WBC (0.0-0.2); PLATELET COUNT,PLT 63 K/uL (150-400); RED BLOOD CELL COUNT 2.73 M/uL (4.52-5.90); WHITE BLOOD CELL COUNT,WBC 7.06 K/uL (3.9-11.3)
[2025-03-28 23:07] LABS: BLOOD UREA NITROGEN,BUN 19.0 mg/dL (7.0-18.0); CARBON DIOXIDE,CO2 27.3 mmol/L (21.0-32.0); CHLORIDE,CL 104.0 mmol/L (98-107); CREATININE 1.3 mg/dL (0.8-1.3); EST CRCL DRUG DOSING (CG) 41.39 mL/min; GLUCOSE RANDOM 112.0 mg/dL (74-106); POTASSIUM,K 4.3 mmol/L (3.5-5.1); SODIUM,NA 141.0 mmol/L (136-148)
[2025-03-28 23:11] LABS: ESTIMATED GFR 56.0 mL/min (>60)
[2025-03-28 23:36] VITALS: BP 119/83; PULSE 108
== END 2025-03-29 00:30 ==
LOC: MW.ED 21:42
DX: S42.211A Unspecified displaced fracture of surgical neck of right humerus, initial encounter for closed fracture (principal); S72.001A Fracture of unspecified part of neck of right femur, initial encounter for closed fracture; E78.00 Pure hypercholesterolemia, unspecified; J44.9 Chronic obstructive pulmonary disease, unspecified; K21.9 Gastro-esophageal reflux disease without esophagitis; Z79.899 Other long term (current) drug therapy; W01.0XXA Fall on same level from slipping, tripping and stumbling without subsequent striking against object, initial encounter; Y92.009 Unspecified place in unspecified non-institutional (private) residence as the place of occurrence of the external cause
CPT/HCPCS: 36415; 73030; 73502; 80048; 85025; 96374; 96376; 99285; J2270

== ENCOUNTER 2025-04-05 20:30 | Emergency (ER) | payer MEDICARE, MEDICAID ==
[2025-04-05 21:21] LABS: MEAN PLATELET VOLUME 10.8 fL (9.4-12.4); NRBC ABSOLUTE 0.00 K/uL (0.00-0.02); NRBC PERCENT 0.0 /100WBC (0.0-0.2); PLATELET COUNT,PLT 131 K/uL (150-400); RED BLOOD CELL COUNT 2.42 M/uL (4.52-5.90); WHITE BLOOD CELL COUNT,WBC 3.17 K/uL (3.9-11.3)
[2025-04-05 21:26] LABS: INR 1.11 (0.86-1.11)
[2025-04-05 21:47] LABS: A/G RATIO 0.8 (0.9-1.6); ALANINE AMINOTRANSFERASE,ALT 23.0 IU/L (14-63); ASPARTATE AMNIOTRANSFERASE,AST 23.0 IU/L (15-37); BILIRUBIN TOTAL 0.9 mg/dL (0.2-1.0); BLOOD UREA NITROGEN,BUN 29.0 mg/dL (7.0-18.0); CARBON DIOXIDE,CO2 26.6 mmol/L (21.0-32.0); CHLORIDE,CL 98.0 mmol/L (98-107); CREATININE 1.1 mg/dL (0.8-1.3); EST CRCL DRUG DOSING (CG) 43.9 mL/min; GLUCOSE RANDOM 126.0 mg/dL (74-106); POTASSIUM,K 4.5 mmol/L (3.5-5.1); PROTEIN TOTAL,TP 6.9 g/dL (6.4-8.2); SODIUM,NA 135.0 mmol/L (136-148)
[2025-04-05 21:49] LABS: ESTIMATED GFR 68.0 mL/min (>60)
[2025-04-05 22:03] LABS: BASOPHILS ABSOLUTE MAN 0.03 K/uL (0.00-0.20); BASOPHILS PERCENT MAN 1 % (0-1); EOSINOPHILS ABSOLUTE MAN 0.03 K/uL (0.00-0.45); EOSINOPHILS PERCENT MAN 1 % (0-6); LYMPHOCYTES ABSOLUTE MAN 1.05 K/uL (1.00-4.80); LYMPHOCYTES PERCENT MAN 33 % (24-44); MONOCYTES ABSOLUTE MAN 0.25 K/uL (0.00-0.80); MONOCYTES PERCENT MAN 8 % (0-8); SEG NEUTROPHILS ABSOLUTE MAN 1.81 K/uL (1.80-7.70); SEG NEUTROPHILS PERCENT MAN 57 % (41-71)
[2025-04-06] MEDS: Acetaminophen/oxyCODONE 325-10 MG Tab PO ONE (01:23)
[2025-04-06] MEDS: Amoxicillin/Clavulanate K 875-125 MG Tab PO ONE (02:51)
[2025-04-06 05:17] VITALS: BP 168/89; PULSE 92
== END 2025-04-06 05:17 ==
LOC: MW.ED 20:30
DX: D64.9 Anemia, unspecified (principal); J18.9 Pneumonia, unspecified organism; E78.00 Pure hypercholesterolemia, unspecified; J44.9 Chronic obstructive pulmonary disease, unspecified; K21.9 Gastro-esophageal reflux disease without esophagitis; M19.90 Unspecified osteoarthritis, unspecified site; Z79.51 Long term (current) use of inhaled steroids; Z79.899 Other long term (current) drug therapy
CPT/HCPCS: 36415; 36430; 71045; 80053; 84484; 85025; 85610; 86850; 86900; 86901; 86920; 93005; 99285; A9270; P9016; 93010; 99284

== ENCOUNTER 2025-05-16 12:19 | Emergency (ER) | payer MEDICARE, MEDICAID ==
[2025-05-16 14:33] VITALS: BP 101/61; PULSE 68
== END 2025-05-16 14:32 | disposition home or self-care (01) ==
LOC: MW.ED 12:19
DX: K46.9 Unspecified abdominal hernia without obstruction or gangrene (principal); E78.00 Pure hypercholesterolemia, unspecified; J44.9 Chronic obstructive pulmonary disease, unspecified; Z87.891 Personal history of nicotine dependence; Z79.899 Other long term (current) drug therapy
CPT/HCPCS: 99282; 99283